=== PATIENT | male | born 1970 | race Caucasian/White ===

== ENCOUNTER 2020-12-26 17:11 | Outpatient (REF) | payer OTHER, SELFPAY ==
--- NOTE | 2020-12-26 17:17 | XR_ITS ---
EXAMINATION: XR CERVICAL SPINE XR LUMBAR SPINE CLINICAL INFORMATION: Cervicalgia. Low back pain. COMPARISON: None TECHNIQUE: AP, lateral, open-mouth, and swimmer's views of the cervical spine. AP, lateral, and coned-down views of the lumbar spine. FINDINGS: Cervical Spine: Straightening of the normal cervical lordosis, which may be positional or related to muscular spasm. No acute fracture or subluxation. No loss of vertebral body height. Multilevel loss of intervertebral disc height with anterior endplate osteophytes, most prominent at C5-C6 and C6-C7. Normal atlantoaxial alignment. Unremarkable prevertebral soft tissues. Lumbar Spine: The lumbar lordosis is maintained. Minimal grade 1 retrolisthesis of L3 on L4. No acute fracture. No loss of vertebral body height. Mild multilevel loss of intervertebral disc height with anterior endplate osteophytes. Severe bilateral facet arthropathy at L3-S1. No lytic or blastic osseous lesion. XR/XR lumbar spine 2-3V IMPRESSION: Cervical Spine: Straightening of the normal cervical lordosis, which may be positional or related to muscular spasm. Multilevel degenerative disc disease. Prominent anterior endplate osteophytes at C5-C6 and C6-C7. Lumbar Spine: Minimal grade 1 retrolisthesis of L3 on L4. Mild multilevel degenerative disc disease. Severe bilateral facet arthropathy at L3-S1.
--- NOTE | 2020-12-26 17:17 | XR_ITS ---
EXAMINATION: XR CERVICAL SPINE XR LUMBAR SPINE CLINICAL INFORMATION: Cervicalgia. Low back pain. COMPARISON: None TECHNIQUE: AP, lateral, open-mouth, and swimmer's views of the cervical spine. AP, lateral, and coned-down views of the lumbar spine. FINDINGS: Cervical Spine: Straightening of the normal cervical lordosis, which may be positional or related to muscular spasm. No acute fracture or subluxation. No loss of vertebral body height. Multilevel loss of intervertebral disc height with anterior endplate osteophytes, most prominent at C5-C6 and C6-C7. Normal atlantoaxial alignment. Unremarkable prevertebral soft tissues. Lumbar Spine: The lumbar lordosis is maintained. Minimal grade 1 retrolisthesis of L3 on L4. No acute fracture. No loss of vertebral body height. Mild multilevel loss of intervertebral disc height with anterior endplate osteophytes. Severe bilateral facet arthropathy at L3-S1. No lytic or blastic osseous lesion. XR/XR cervical spine 2V IMPRESSION: Cervical Spine: Straightening of the normal cervical lordosis, which may be positional or related to muscular spasm. Multilevel degenerative disc disease. Prominent anterior endplate osteophytes at C5-C6 and C6-C7. Lumbar Spine: Minimal grade 1 retrolisthesis of L3 on L4. Mild multilevel degenerative disc disease. Severe bilateral facet arthropathy at L3-S1.
== END 2020-12-26 17:12 | disposition home or self-care (01) ==
LOC: HO.XRAY 17:11
PROVIDERS: PCP Internal Medicine; Visit Provider Internal Medicine
DX: M54.5 Low back pain (principal); M54.2 Cervicalgia
CPT/HCPCS: 72040; 72100

== ENCOUNTER 2021-05-29 20:19 | Inpatient (IN) | payer OTHER, SELFPAY ==
--- NOTE | ~2021-05-29 | MR_ITS ---
EXAMINATION: MR FOOT RIGHT, WITHOUT/WITH CONTRAST CLINICAL INFORMATION: Evaluate for osteomyelitis. Foot pain, infection. COMPARISON: Radiographs of the foot from 05/29/2021 TECHNIQUE: MR imaging of the right foot was performed using standard sequences on a high-field 1.5 Jackelyn magnet without and with intravenous administration of 10 mL Gadavist. FINDINGS: There appears to be superficial soft tissue ulcer in the region of the first web space and plantar aspect of the great toe. Multiple small foci of signal void are present within soft tissues of the first web space and dorsal forefoot, corresponding to the soft tissue gas observed on radiographs from 05/29/2021. There is edema of subcutaneous tissues, most pronounced in the dorsal forefoot, without focal organized collection. No evidence of a rim-enhancing fluid collection or soft tissue mass. There is diffuse edema-like signal intensity of muscles of the foot. The muscles are atrophied and exhibit partial fatty replacement. These findings are likely sequela of chronic diabetic associated neuropathy. The flexor and extensor tendons are intact. No evidence of tendon tear or tenosynovitis. There are osteophytes of the mildly degenerated great toe metatarsophalangeal joint. No erosions or periostitis. The fatty marrow signal intensity is well-preserved with within bones of the forefoot. No pathologic bone marrow enhancement. No evidence of osteomyelitis. There are marginal osteophytes at degenerated 2nd - 4th tarsometatarsal joints. Bones have normal alignment along Lisfranc joint, and the Lisfranc ligament complex is intact. MR/MR foot RT wo/w con IMPRESSION: * Soft tissue ulcer in the forefoot and soft tissue gas could represent gas gangrene. No soft tissue abscess. * No evidence of osteomyelitis. 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 * Diffuse edema-like signal intensity of muscles of the foot along with atrophy and partial fatty replacement of muscles could be the sequela of chronic diabetic associated denervation.
--- NOTE | ~2021-05-29 | XR_ITS ---
EXAMINATION: XR CHEST CLINICAL INFORMATION: Infection COMPARISON: Chest x-ray October 26, 2016 TECHNIQUE: Frontal view of the chest was obtained. 9:49 PM FINDINGS: No significant abnormality is noted involving the heart, lungs, mediastinum, bony thorax or soft tissues. XR/XR chest 1V IMPRESSION: Unremarkable examination.
--- NOTE | ~2021-05-29 | XR_ITS ---
EXAMINATION: XR FOOT, RIGHT CLINICAL INFORMATION: Pain and redness and ulcer. Evaluate for osteomyelitis COMPARISON: None TECHNIQUE: AP, lateral, and oblique views of the right foot. FINDINGS: Bone alignment is normal. No fracture or dislocation is seen. There is mild arthritis at the first MTP joint with small osteophytes. Joint spaces are otherwise normal. There is air in the soft tissues over the MTP joints and soft tissue swelling. No x-ray evidence of osteomyelitis is seen. There are large calcaneal spurs. XR/XR foot RT min 3V IMPRESSION: Air in the soft tissues and soft tissue swelling over the MTP joints. No fracture, soft tissue foreign body or x-ray evidence of osteomyelitis seen.
[2021-05-29 21:18] VITALS: BP 144/63; PULSE 118; RESP 18; TEMP 37.7; O2SAT 93; BMI 37.5
--- NOTE | 2021-05-29 22:13 | ED_ITS ---
HPI - Wound/Laceration General Chief Complaint: Wound/Laceration Stated Complaint: ?Foot infection Time Seen by Provider: 05/29/21 22:13 Source: patient Mode of arrival: ambulatory History of Present Illness HPI narrative: 50-year-old male with history of diabetes and hypertension presents with fever and chills for 4-5 days and noticing a wound to the right foot the patient states worsened overnight and involves the right MTP with blis tering, foot erythema, as well as discomfort on ambulation. Otherwise, he denies any shortness of breath, chest pain / palpitations, GI or symptoms. Related Data Home Medications Medication Instructions Recorded Confirmed amitriptyline 10 mg tablet 10 mg PO DAILY 11/26/20 02/10/21 tamsulosin 0.4 mg capsule 0.4 mg PO DAILY 11/26/20 02/10/21 Previous Rx's Medication Instructions Recorded dulaglutide 1.5 mg/0.5 mL 1.5 mg SUBCUT QWEEK #4 ml 09/10/20 subcutaneous pen injector pen needle, diabetic 31 gauge x 1 ea SUBCUT DAILY 30 Days #30 ea 09/17/20 5/ pioglitazone 45 mg tablet 45 mg PO DAILY 90 Days #90 tab 09/29/20 simvastatin 20 mg tablet 20 mg PO BEDTIME 90 Days #90 tab 10/01/20 sildenafil 100 mg tablet 100 mg PO DAILY PRN #20 cap 10/08/20 levothyroxine 150 mcg tablet 150 mcg PO DAILY #90 tab 10/15/20 diabetic shoes with inserts #1 ea 11/12/20 cyclobenzaprine 10 mg tablet 10 mg PO TID PRN 14 Days #42 tab 11/26/20 omeprazole 20 mg capsule,delayed 20 mg PO DAILY 90 Days #90 cap 12/10/20 release lisinopril 2.5 mg tablet 2.5 mg PO DAILY #30 tab 12/18/20 imipramine HCl 10 mg tablet 10 mg PO BEDTIME 90 Days #90 tab 01/14/21 testosterone 20.25 mg/1.25 gram 4 pump TOPICAL DAILY 30 Days #150 g 02/05/21 (1.62 %) transdermal gel pump insulin glargine 100 unit/mL (3 60 unit SUBCUT DAILY #18 syringe 03/27/21 mL) subcutaneous pen Allergies Allergy/AdvReac Type Severity Reaction Status Date / Time dog dander Allergy Unknown Ithcy Verified 02/10/21 13:01 metformin [METFORMIN] Allergy Unknown LACTIC Verified 02/10/21 13:01 ACIDOSIS nut - unspecified Allergy Unknown hives/throat Verified 02/10/21 13:01 constriction sunflower seeds Allergy Unknown throat Uncoded 12/31/20 17:23 itchiness Review of Systems Review of Systems: Pertinent positives and negatives as stated in HPI 10 point review of systems is otherwise negative. PMFSH Past Medical History Source: nursing notes reviewed Medical History Asthma Autoimmune thyroiditis BPH (benign prostatic hyperplasia) Erectile dysfunction GERD (gastroesophageal reflux disease) Hypercholesterolemia Hypertension Legally blind in left eye, as defined in [place] Neuropathy Obesity (BMI 30-39.9) Type 2 diabetes mellitus with hyperglycemia Surgical History Strabismus Family History Family History Father No problems noted. Mother Skin cancer Hypertension Diabetes Maternal Grandmother Diabetes Hypertension Maternal Grandfather Stroke Diabetes Hypertension Maternal Aunt Cancer Sister No problems noted. Brother No problems noted. Social History Social History Alcohol intake: never Advance Directives: No Advance Directives Information Provided: Yes Physical Exam Vital Signs: Vital Signs: Last Vital Signs Temp 99.9 F 05/29/21 21:18 Pulse 118 H 05/29/21 21:18 Resp 18 05/29/21 21:18 BP 144/63 H 05/29/21 21:18 Pulse Ox 93 05/29/21 21:18 Body Mass Index 37.5 VITAL SIGNS: Reviewed. GENERAL: Well developed, well nourished, in no acute distress. HEAD: Normocephalic/atraumatic, EYES: PERRLA, EOMI intact without pain, no nystagmus EARS: Ext canals without abnormality, TMs non-bulging and non-erythematous NOSE: Nares patent bilateral OROPHARYNX: no oral lesions noted, posterior pharynx clear NECK: Supple, no adenopathy LUNGS: Normal breath sounds. No adventitious sounds or accessory muscle use. SpO2<93> CARDIOVASCULAR: Regular rate and rhythm without noted murmurs, no JVD or lower extremity edema. ABDOMEN: obese,Soft, non-tender, non-distended with bowel sounds. RIGHT FOOT:Erythema, swelling over foot dorsum with ulceration and blistering noted along plantar MTP and extending between the great toe and 2nd toe, palpable DP/PT, capillary refill less than 3 seconds SKIN: Inspection of the skin reveals no rashes NEUROLOGIC: Alert and oriented x 4. Strength and sensation to light touch were grossly intact x 4. Course Course Course Narrative: 50-year-old male with history and clinical presentation most consistent with right foot cellulitis and likely underlying osteomyelitis, patient will be provided with antibiotics, combination analgesics and admitted. On review of all investigations findings are consistent with significant right foot cellulitis without direct imaging evidence of OM, patient is hyperglycemic and will be treated with 2 L of IV fluid resuscitation however there is no evidence of DKA/ HHS. This case was discussed with the inpatient hospitalist who is agreeable for admission. MDM - Wound/Laceration Lab Data Result diagrams: 05/29/21 22:14 05/29/21 22:14 Labs: Lab Results 05/29/21 05/29/21 05/29/21 Range/Units 22:14 22:14 22:14 WBC 14.8 H (4.8-10.8) X10*3/uL RBC 4.06 L (4.60-5.80) X10*6/uL Hgb 11.3 L (14.0-18.0) g/dl Hct 33.6 L (42-52) % MCV 82.8 (80-98) fL MCH 27.8 (27.0-33.0) pg MCHC 33.6 (31.0-36.0) g/dl RDW 13.3 (11.0-16.0) % Plt Count 217 (160-400) X10*3/uL MPV 10.6 (9.4-12.4) fL Immature Gran % (Auto) 1.2 H (0.0-0.4) % Neut % (Auto) 82.4 H (45-73) % Lymph % (Auto) 7.9 L (20-40) % [place] % (Auto) 8.1 (2-11) % Eos % (Auto) 0.3 (0-4) % Baso % (Auto) 0.1 (0-2) % Lymph # (Auto) 1.2 (1.2-4.9) X10*3/uL [place] # (Auto) 1.2 (0.1-1.2) X10*3/uL Eos # (Auto) 0.0 (0.0-0.4) X10*3/uL Baso # (Auto) 0.0 (0.0-0.2) X10*3/uL Abs Immat Gran (auto) 0.17 H (0.00-0.03) X10*3/uL Absolute Neuts (auto) 12.2 H (2.0-8.3) X10*3/uL Absolute Nucleated RBC 0.000 (0.0-0.012) X10*3/uL Nucleated RBC % (auto) 0.0 (0.0-0.2) /100WBC ESR (0-15) MM/HR PT 14.3 H (10.8-13.0) SEC INR 1.2 H (0.9-1.1) Sodium 134 L (135-145) mmol/L Potassium 4.2 (3.3-5.1) mmol/L Chloride 98 (96-108) mmol/L Carbon Dioxide 23 (22-29) mmol/L Anion Gap 17 (12-20) BUN 21 H (9-16) mg/dL Creatinine 1.71 H (0.5-1.4) mg/dL Estim Creat Clear Calc 60.8 Estimated GFR 43 POC Glucose (60-115) mg/dL Random Glucose 609 H* (60-115) mg/dL Lactic Acid (0.5-2.0) mmol/L Calcium 9.1 (8.4-10.2) mg/dL Total Bilirubin 1.1 H (0.0-1.0) mg/dL C-Reactive Protein 39.88 H (< or = 0.50) mg/dL 05/29/21 05/29/21 05/29/21 Range/Units 22:14 22:14 22:44 WBC (4.8-10.8) X10*3/uL RBC (4.60-5.80) X10*6/uL Hgb (14.0-18.0) g/dl Hct (42-52) % MCV (80-98) fL MCH (27.0-33.0) pg MCHC (31.0-36.0) g/dl RDW (11.0-16.0) % Plt Count (160-400) X10*3/uL MPV (9.4-12.4) fL Immature Gran % (Auto) (0.0-0.4) % Neut % (Auto) (45-73) % Lymph % (Auto) (20-40) % [place] % (Auto) (2-11) % Eos % (Auto) (0-4) % Baso % (Auto) (0-2) % Lymph # (Auto) (1.2-4.9) X10*3/uL [place] # (Auto) (0.1-1.2) X10*3/uL Eos # (Auto) (0.0-0.4) X10*3/uL Baso # (Auto) (0.0-0.2) X10*3/uL Abs Immat Gran (auto) (0.00-0.03) X10*3/uL Absolute Neuts (auto) (2.0-8.3) X10*3/uL Absolute Nucleated RBC (0.0-0.012) X10*3/uL Nucleated RBC % (auto) (0.0-0.2) /100WBC ESR 96 H (0-15) MM/HR PT (10.8-13.0) SEC INR (0.9-1.1) Sodium (135-145) mmol/L Potassium (3.3-5.1) mmol/L Chloride (96-108) mmol/L Carbon Dioxide (22-29) mmol/L Anion Gap (12-20) BUN (9-16) mg/dL Creatinine (0.5-1.4) mg/dL Estim Creat Clear Calc Estimated GFR POC Glucose 507 H* (60-115) mg/dL Random Glucose (60-115) mg/dL Lactic Acid 1.6 (0.5-2.0) mmol/L Calcium (8.4-10.2) mg/dL Total Bilirubin (0.0-1.0) mg/dL C-Reactive Protein (< or = 0.50) mg/dL Discharge Plan Discharge Clinical Impression: Cellulitis and abscess of toe of right foot, Cellulitis of foot, right, ARSH (acute kidney injury), Sepsis, Hyperglycemia Patient Disposition: Admitted As Inpatient Prescriptions: No Action dulaglutide [Trulicity] 1.5 mg/0.5 mL pen injector 1.5 mg subcut QWEEK Qty: 4 RF: 6 pen needle, diabetic [BD Ultra-Fine Short Pen Needle] 31 gauge x 5/16 needle 1 ea subcut DAILY 30 Days Qty: 30 RF: 11 pioglitazone 45 mg tablet 45 mg PO DAILY 90 Days Qty: 90 RF: 3 simvastatin 20 mg tablet 20 mg PO BEDTIME 90 Days Qty: 90 RF: 3 sildenafil 100 mg tablet 100 mg PO DAILY PRN (Reason: sexual activity) Qty: 20 RF: 11 levothyroxine [Euthyrox] 150 mcg tablet 150 mcg PO DAILY Qty: 90 RF: 2 (DME) diabetic shoes with inserts 9.5 See Rx Instructions .Route .MEDSUPPLY Qty: 1 RF: 3 omeprazole 20 mg capsule,delayed release(DR/EC) 20 mg PO DAILY 90 Days Qty: 90 RF: 3 lisinopril 2.5 mg tablet 2.5 mg PO DAILY Qty: 30 RF: 11 imipramine HCl 10 mg tablet 10 mg PO BEDTIME 90 Days Qty: 90 RF: 2 testosterone 20.25 mg/1.25 gram (1.62 %) gel in metered-dose pump 4 pump topical DAILY 30 Days Qty: 150 RF: 5 Lantus Solostar U-100 Insulin 100 unit/mL (3 mL) insulin pen 60 unit subcut DAILY Qty: 18 RF: 3 amitriptyline 10 mg tablet 10 mg PO DAILY RF: 0 tamsulosin 0.4 mg capsule 0.4 mg PO DAILY RF: 0 cyclobenzaprine 10 mg tablet 10 mg PO TID PRN (Reason: muscle spasm) 14 Days Qty: 42 RF: 0
[2021-05-29 22:20] LABS: MANUAL DIFF FLAG NO
[2021-05-29 22:22] LABS: Basophils Percent Auto 0.1 % (0-2); Eosinophils Percent Auto 0.3 % (0-4); Hematocrit 33.6 % (42-52); Hemoglobin 11.3 g/dl (14.0-18.0); Imm Gran Abs Auto 0.17 X10*3/uL (0.00-0.03); Imm Gran Pct Auto 1.2 % (0.0-0.4); Lymphocytes Absolute Auto 1.2 X10*3/uL (1.2-4.9); Lymphocytes Percent Auto 7.9 % (20-40); Mean Corpuscular HGB Conc 33.6 g/dl (31.0-36.0); Mean Corpuscular Hemoglobin 27.8 pg (27.0-33.0); Mean Corpuscular Volume 82.8 fL (80-98); Mean Platelet Volume 10.6 fL (9.4-12.4); Monocytes Absolute Auto 1.2 X10*3/uL (0.1-1.2); Monocytes Percent Auto 8.1 % (2-11); Neutrophils Absolute Auto 12.2 X10*3/uL (2.0-8.3); Neutrophils Percent Auto 82.4 % (45-73); Platelet Count 217 X10*3/uL (160-400); Red Blood Count 4.06 X10*6/uL (4.60-5.80); Red Cell Distribution Width 13.3 % (11.0-16.0); White Blood Count 14.8 X10*3/uL (4.8-10.8)
[2021-05-29] MEDS: Acetaminophen 325 MG TABLET 975 MG PO (22:30)
[2021-05-29] MEDS: Piperacillin Sodium/Tazobactam 3.375 GM in 0.9 % Sodium Chloride 50 ML IV (22:30)
[2021-05-29 22:37] LABS: INTERNATIONAL NORM RATIO 1.2 (0.9-1.1); Prothrombin Time 14.3 SEC (10.8-13.0)
[2021-05-29 22:43] LABS: Lactic Acid 1.6 mmol/L (0.5-2.0)
[2021-05-29 22:52] LABS: Anion Gap 17 (12-20); Bilirubin Total 1.1 mg/dL (0.0-1.0); Blood Urea Nitrogen 21 mg/dL (9-16); Calcium 9.1 mg/dL (8.4-10.2); Carbon Dioxide 23 mmol/L (22-29); Chloride 98 mmol/L (96-108); Creatinine Clr Calc Pharmacy 60.8; Estimated Glomerular Filt Rate 43; Potassium 4.2 mmol/L (3.3-5.1); Sodium 134 mmol/L (135-145)
[2021-05-29 22:55] LABS: Glucose, Whole Blood 507 mg/dL (60-115)
[2021-05-29] MEDS: 0.9 % Sodium Chloride 2,000 ML 999 ML IV (23:00)
[2021-05-29] MEDS: vancomycin HCL 1,000 MG in 0.9 % Sodium Chloride 250 ML 270 MG IV (23:00)
[2021-05-29 23:02] LABS: C Reactive Protein 39.88 mg/dL (< or = 0.50)
[2021-05-29 23:03] LABS: Erythrocyte Sedimentation Rate 96 MM/HR (0-15); Glucose Random 609 mg/dL (60-115)
[2021-05-29 23:08] LABS: COVID-19 Test Negative (Negative)
[2021-05-29 23:35] VITALS: BP 132/63; PULSE 108; RESP 22; TEMP 37.2; O2SAT 108
[2021-05-30] VITALS (10 sets, daily range): BP systolic 105–138; BP diastolic 50–78; PULSE 75–126; RESP 16–22; TEMP 36.4–38.1; O2SAT 92–98
[2021-05-30] MEDS: Insulin Lispro 100 UNIT/ML 3 ML VIAL 8 UNIT SUBCUT (00:12)
[2021-05-30] MEDS: Enoxaparin Sodium 40 MG/0.4 ML SYRINGE SUBCUT (01:52)
[2021-05-30] MEDS: 0.9 % Sodium Chloride Flush 3 ML SYRINGE IVFLUSH (01:53)
--- NOTE | 2021-05-30 05:40 | PM.IMHP ---
History of Present Illness Date of Service: 05/29/21 Chief Complaint: foot infection this is a 50-year-old male with past medical history of asthma, autoimmune thyroiditis, BPH, GERD, HLD, HTN, diabetes, neuropathy, obesity who presents to the hospital with complaints of left foot swelling, and blister as well as infection. Patient reports that he has always had a small what appear to be a skin infection at the base of his right foot, that he was taking care of, but today he developed blistering around his large toe and redness and swelling of his right foot. Patient reports that he has been having fever and chills for the past for 5 days. The fever is subjective. He denies having any headache, change in vision, no chest pain, no shortness of breath, no abdominal pain nausea or vomiting no diarrhea constipation. No urinary symptoms. patient reports that he does not feel pain in his feet and therefore his never had any pain with his right foot On arrival to the ED patient's vital significant for temp of 99.0, heart rate of 108, respiratory rate of 20, blood pressure of 132/63, satting 98 on room air Labs are significant for WBC count of 14.8, hemoglobin of 11.3, ESR of 96, INR of 1.2, sodium of 134, BUN of 21, creatinine of 1.71 with a baseline around 0.9, hemoglobin of 500, total bili of 101, CRP of 39.88. Right foot x-ray shows air in the soft tissues in soft tissue swelling over the MTP joints, no fracture soft tissue foreign body or x-ray evidence of osteomyelitis past medical history as below long confirm with patient Review of Systems Review of Systems: Yes all other systems are reviewed and are negative [facility] Medical History Asthma Autoimmune thyroiditis BPH (benign prostatic hyperplasia) Erectile dysfunction GERD (gastroesophageal reflux disease) Hypercholesterolemia Hypertension Legally blind in left eye, as defined in [place] Neuropathy Obesity (BMI 30-39.9) Type 2 diabetes mellitus with hyperglycemia Family History Father No problems noted. Mother Skin cancer Hypertension Diabetes Maternal Grandmother Diabetes Hypertension Maternal Grandfather Stroke Diabetes Hypertension Maternal Aunt Cancer Sister No problems noted. Brother No problems noted. Surgical History Strabismus Social History Household Members: Family Housing: House Do you presently have visiting nurse or other home services: No Alcohol intake: unknown Patient Tobacco Use Status: Never used Tobacco Use of substances other than those prescribed or required for medical reasons: No Have you been hit, kicked, punched, or otherwise hurt by someone within the past year? If so, by whom?: No Do you feel safe in your current relationship?: Yes Is there a partner from a previous relationship who is making you feel unsafe now?: No Are you made to feel afraid or neglected: No Advance Directives: No Advance Directives Information Provided: Yes Do you have thoughts of harming others: None Do you have a plan to hurt others: No Plan Recently lost weight without trying: No Nutrition Risks: No Nutritional Risk Poor oral hygiene: No Meds Allergies Allergy/AdvReac Type Severity Reaction Status Date / Time dog dander Allergy Unknown Ithcy Verified 02/10/21 13:01 metformin [METFORMIN] Allergy Unknown LACTIC Verified 02/10/21 13:01 ACIDOSIS nut - unspecified Allergy Unknown hives/throat Verified 02/10/21 13:01 constriction sunflower seeds Allergy Unknown throat Uncoded 12/31/20 17:23 itchiness Active Medications: Current Medications Generic Name Dose Route Start Last Admin Trade Name Freq PRN Reason Stop Dose Admin Acetaminophen 650 mg 05/30/21 00:51 Acetaminophen Supp 650 Mg Supp.Rect CA Q6H PRN Pain, Mild (Pain Scale 1-3) Atorvastatin Calcium 10 mg 05/30/21 21:00 Atorvastatin Calcium 10 Mg Tablet PO BEDTIME [facility] Docusate Sodium 100 mg 05/30/21 00:51 Docusate Sodium 100 Mg Capsule PO DAILY PRN Constipation Enoxaparin Sodium 40 mg 05/30/21 02:00 05/30/21 01:52 Enoxaparin Sodium 40 Mg/0.4 Ml Syringe SUBCUT 40 mg Q24H [facility] Administration Vancomycin HCl 2,000 mg/ 540 mls @ 270 mls/hr 05/30/21 00:51 Sodium Chloride IV Q24H [facility] Piperacillin Sod/Tazobactam 50 mls @ 100 mls/hr 05/30/21 06:00 Sod 3.375 gm/ Sodium Chloride IV Q8H [facility] Imipramine HCl 10 mg 05/30/21 00:51 05/30/21 01:53 Imipramine Hcl 10 Mg Tablet PO Not Given BEDTIME [facility] Insulin Glargine 60 unit 05/30/21 09:00 Insulin Glargine,Hum.Rec.Anlog 100 Unit/Ml 10 Ml Vial SUBCUT DAILY [facility] Levothyroxine Sodium 150 mcg 05/30/21 06:30 Levothyroxine Sodium 150 Mcg Tablet PO DAILY@0630 [facility] Lisinopril 2.5 mg 05/30/21 09:00 Lisinopril 2.5 Mg Tablet PO DAILY [facility] Protocol Non-Formulary Medication 4 pump 05/30/21 09:00 Testosterone TOPICAL DAILY [facility] Omeprazole 20 mg 05/30/21 06:30 Omeprazole 20 Mg Capsule.Dr PO DAILY@0630 [facility] Ondansetron HCl 4 mg 05/30/21 00:51 Ondansetron Hcl 4 Mg/2 Ml Vial IVPUSH Q8H PRN Nausea and Vomiting Pharmacy Consult 1 each 05/30/21 00:51 Consult Rx Vancomycin Dosing MISCELLANE DAILY PRN Consult order Sodium Chloride 3 ml 05/30/21 00:51 05/30/21 01:53 0.9 % Sodium Chloride Flush 3 Ml Syringe IVFLUSH 3 ml QSHIFT [facility] Administration Home Medications Medication Instructions Recorded Confirmed Last Taken Type imipramine HCl 1 tab PO BEDTIME 05/29/21 05/29/21 Unknown History insulin glargine [Lantus Solostar 60 unit SUBCUT DAILY 05/29/21 05/29/21 Unknown History U-100 Insulin] levothyroxine 1 tab PO DAILY 05/29/21 05/29/21 Unknown History lisinopril 1 tab PO DAILY 05/29/21 05/29/21 Unknown History omeprazole 1 cap PO DAILY 05/29/21 05/29/21 Unknown History pen needle, diabetic [BD 05/29/21 05/29/21 Unknown History Ultra-Fine Short Pen Needle] pioglitazone 1 tab PO DAILY 05/29/21 05/29/21 Unknown History sildenafil 1 tab PO DAILY PRN 05/29/21 05/29/21 Unknown History simvastatin 1 tab PO BEDTIME 05/29/21 05/29/21 Unknown History testosterone 4 pump TOPICAL DAILY 05/29/21 05/29/21 Unknown History Physical Exam Vital Signs and Narrative: Vital Signs: Last Vital Signs Temp 97.5 F 05/30/21 03:48 Pulse 101 H 05/30/21 03:48 Resp 16 05/30/21 03:48 BP 119/67 05/30/21 03:48 Pulse Ox 96 05/30/21 03:48 Body Mass Index 37.5 Const: General: cooperative and no acute distress Orientation/consciousness: patient oriented x3 Eyes: General: appearance normal, both eyes and all related structures Resp: Effort & Inspection: normal respiratory effort and able to speak in complete sentences Cardio: Rate: regular rate Rhythm: regular rhythm GI: Palpation (GI): Soft to palpation Auscultation: normal bowel sounds Skin: Other: erythema, warmth of the right foot Neuro: General: patient oriented x3 Cognition (Neuro): normal cognition Extrem: Other: erythema, warmth, edema, right foot, there is also a blister and drainage located between the 1st and 2nd phalanges of the right foot. There was clear fluid drainage. There is a callus at the base of the 1st toe of his right foot. General: Yes normal to inspection Results Labs CBC and Chem 7: 05/29/21 22:14 05/29/21 22:14 Labs: Laboratory Results - last 24 hr 05/29/21 05/29/21 05/29/21 22:14 22:14 22:14 MCV 82.8 MCH 27.8 MCHC 33.6 RDW 13.3 Plt Count 217 MPV 10.6 Immature Gran % (Auto) 1.2 H Neut % (Auto) 82.4 H Lymph % (Auto) 7.9 L Frontier % (Auto) 8.1 Eos % (Auto) 0.3 Baso % (Auto) 0.1 Lymph # (Auto) 1.2 Frontier # (Auto) 1.2 Eos # (Auto) 0.0 Baso # (Auto) 0.0 Abs Immat Gran (auto) 0.17 H Absolute Neuts (auto) 12.2 H Absolute Nucleated RBC 0.000 Nucleated RBC % (auto) 0.0 ESR PT 14.3 H INR 1.2 H Anion Gap 17 Estim Creat Clear Calc 60.8 Estimated GFR 43 POC Glucose Random Glucose 609 H* Lactic Acid Calcium 9.1 Total Bilirubin 1.1 H C-Reactive Protein 39.88 H COVID-19 ([facility]) COVID-19 Clin Com 05/29/21 05/29/21 05/29/21 22:14 22:14 22:44 MCV MCH MCHC RDW Plt Count MPV Immature Gran % (Auto) Neut % (Auto) Lymph % (Auto) Frontier % (Auto) Eos % (Auto) Baso % (Auto) Lymph # (Auto) Frontier # (Auto) Eos # (Auto) Baso # (Auto) Abs Immat Gran (auto) Absolute Neuts (auto) Absolute Nucleated RBC Nucleated RBC % (auto) ESR 96 H PT INR Anion Gap Estim Creat Clear Calc Estimated GFR POC Glucose 507 H* Random Glucose Lactic Acid 1.6 Calcium Total Bilirubin C-Reactive Protein COVID-19 ([facility]) COVID-19 Clin Com 05/29/21 22:45 MCV MCH MCHC RDW Plt Count MPV Immature Gran % (Auto) Neut % (Auto) Lymph % (Auto) Frontier % (Auto) Eos % (Auto) Baso % (Auto) Lymph # (Auto) Frontier # (Auto) Eos # (Auto) Baso # (Auto) Abs Immat Gran (auto) Absolute Neuts (auto) Absolute Nucleated RBC Nucleated RBC % (auto) ESR PT INR Anion Gap Estim Creat Clear Calc Estimated GFR POC Glucose Random Glucose Lactic Acid Calcium Total Bilirubin C-Reactive Protein COVID-19 ([facility]) Negative COVID-19 Clin Com See Note Imaging Radiologist's Impressions: Impressions Chest X-Ray 05/29/21 21:55 IMPRESSION: Unremarkable examination. Foot X-Ray 05/29/21 22:15 IMPRESSION: Air in the soft tissues and soft tissue swelling over the MTP joints. No fracture, soft tissue foreign body or x-ray evidence of osteomyelitis seen. Assessment and Plan (1) Diabetic foot ulcer: Status: Acute (2) Cellulitis and abscess of toe of right foot: Status: Acute (3) Sepsis: Status: Acute (4) ARSH (acute kidney injury): Status: Acute (5) Hyperglycemia: Status: Acute this is a 50-year-old male with past medical history of diabetes and diabetic neuropathy who presents the hospital with blister of his right foot # sepsis - most likely secondary to foot infection osteomyelitis likely - patient tachycardic, leukocytosis, tachypneic - normal lactic acid - will start him on vanc and Zosyn - IV fluids - follow cultures # diabetic for ulcers/ cellulitis and abscess of right foot - most likely osteomyelitis - has elevated ESR as well as CRP - will start him on broad-spectrum antibiotics - MRI of foot - consult infectious disease - consult general surgery # ARSH - possibly secondary to acute infection - will start him on IV fluid - follow BMP # hyperglycemia - patient has diabetes - continue home insulin - received 8 units of insulin in the ED - patient received low-dose sliding scale insulin - diabetic diet # hypothyroidism - continue levothyroxine # HLD - continue statin # hypertension - stable - continue lisinopril DVT prophylaxis: SCDs in anticipation of surgical intervention Quality Stroke Does the patient have a stroke diagnosis?: No VTE Prior VTE?: No VTE Risk Level:: Medical - moderate - high VTE Device Contraindication: Treatment Not Indicated VTE Drug Contraindication: N/A - Med Ordered
[2021-05-30] MEDS: Piperacillin Sodium/Tazobactam 3.375 GM in 0.9 % Sodium Chloride 50 ML IV ×3 (05:42→21:50)
[2021-05-30] MEDS: Omeprazole 20 MG CAPSULE.DR PO (05:43)
[2021-05-30] MEDS: Levothyroxine Sodium 150 MCG TABLET PO (05:43)
[2021-05-30 05:59] LABS: MANUAL DIFF FLAG NO
[2021-05-30 06:00] LABS: Glucose, Whole Blood 289 mg/dL (60-115)
[2021-05-30 06:08] LABS: Basophils Percent Auto 0.2 % (0-2); Eosinophils Absolute Auto 0.1 X10*3/uL (0.0-0.4); Eosinophils Percent Auto 0.7 % (0-4); Hematocrit 32.5 % (42-52); Hemoglobin 10.7 g/dl (14.0-18.0); Imm Gran Abs Auto 0.28 X10*3/uL (0.00-0.03); Lymphocytes Absolute Auto 1.4 X10*3/uL (1.2-4.9); Lymphocytes Percent Auto 10.1 % (20-40); Mean Corpuscular HGB Conc 32.9 g/dl (31.0-36.0); Mean Corpuscular Hemoglobin 27.6 pg (27.0-33.0); Mean Corpuscular Volume 83.8 fL (80-98); Mean Platelet Volume 10.9 fL (9.4-12.4); Monocytes Percent Auto 7.4 % (2-11); Neutrophils Absolute Auto 10.9 X10*3/uL (2.0-8.3); Neutrophils Percent Auto 79.6 % (45-73); Platelet Count 209 X10*3/uL (160-400); Red Blood Count 3.88 X10*6/uL (4.60-5.80); Red Cell Distribution Width 13.5 % (11.0-16.0); White Blood Count 13.7 X10*3/uL (4.8-10.8)
[2021-05-30] MEDS: Insulin Lispro 100 UNIT/ML 3 ML VIAL SUBCUT ×4 (06:30→21:51)
[2021-05-30] MEDS: Lactated Ringers 1,000 ML 125 ML IVCONT ×2 (06:37→21:51)
[2021-05-30 06:42] LABS: Anion Gap 17 (12-20); Blood Urea Nitrogen 18 mg/dL (9-16); Calcium 8.2 mg/dL (8.4-10.2); Carbon Dioxide 20 mmol/L (22-29); Chloride 105 mmol/L (96-108); Creatinine Clr Calc Pharmacy 74.8; Estimated Glomerular Filt Rate 54; Glucose Random 320 mg/dL (60-115); Potassium 3.9 mmol/L (3.3-5.1); Sodium 138 mmol/L (135-145)
[2021-05-30 07:36] LABS: Glucose, Whole Blood 272 mg/dL (60-115)
[2021-05-30] MEDS: Insulin Glargine,Hum.rec.anlog 100 UNIT/ML 10 ML VIAL 60 UNIT SUBCUT (09:07)
[2021-05-30] MEDS: lisinopriL 2.5 MG TABLET PO (09:07)
--- NOTE | 2021-05-30 09:36 | MHC.CLN ---
NUTRITION/DIET PATIENT IS CURRENTLY NPO. HAS DX DM AND WHEN DIET ADVANCED RECOMMEND THERAPEUTIC DIABETIC DIET 2200 KCAL. ESTIMATED CALORIC [id number] KCAL (28 KCAL/KG CALCULATED METABOLIC WEIGHT. UNABLE TO ASSESS DIET CONSISTENCY.
--- NOTE | 2021-05-30 09:53 | PM.CNGS ---
History of Present Illness Consult details Consult date: 05/30/21 Requesting physician: Jim Griffin Narrative: 50-year-old male patient with history of diabetes mellitus presenting with a right foot ulcer. This began while fishing wearing beach shoes walking on rocks. He apparently developed a laceration to the plantar surface of the foot over the distal metatarsal of the great toe. The patient clean the site with hydrogen peroxide but over the next several days he developed increased redness extending up between the webspace of the great toe and the 2nd toe and onto the Ventral surface. He now presents to the emergency department with redness pain and swelling. He is admitted to the hospitalist service for further management of this diabetic foot ulcer. Review of Systems Review of Systems: Yes all other systems are reviewed and are negative Constitutional: Constitutional: Denies chills, Denies fatigue and Denies fever(s) Cardiovascular: Cardiovascular: Denies chest pain, Reports pedal edema, Denies irregular heart rhythm and Denies orthopnea Respiratory: Respiratory: Denies chest congestion, Denies cough and Denies hemoptysis Gastrointestinal: Gastrointestinal: Reports no additional gastrointestinal complaints Musculoskeletal: Musculoskeletal: Reports as per HPI Endocrine: Endocrine: Denies fatigue Hematologic/Lymphatic: Hematologic/Lymphatic: Denies lymphadenopathy [facility] Past Medical History Medical History Asthma Autoimmune thyroiditis BPH (benign prostatic hyperplasia) Erectile dysfunction GERD (gastroesophageal reflux disease) Hypercholesterolemia Hypertension Legally blind in left eye, as defined in [place] Neuropathy Obesity (BMI 30-39.9) Type 2 diabetes mellitus with hyperglycemia Family History Family History Father No problems noted. Mother Skin cancer Hypertension Diabetes Maternal Grandmother Diabetes Hypertension Maternal Grandfather Stroke Diabetes Hypertension Maternal Aunt Cancer Sister No problems noted. Brother No problems noted. Surgical History Surgical History Strabismus Social History Social History Household Members: Family Housing: House Do you presently have visiting nurse or other home services: No Alcohol intake: unknown Patient Tobacco Use Status: Never used Tobacco Use of substances other than those prescribed or required for medical reasons: No Currently Displaying Signs/Symptoms of Drug Intoxication Withdrawal: No Have you been hit, kicked, punched, or otherwise hurt by someone within the past year? If so, by whom?: No Do you feel safe in your current relationship?: Yes Is there a partner from a previous relationship who is making you feel unsafe now?: No Are you made to feel afraid or neglected: No Advance Directives: No Advance Directives Information Provided: Yes Do you have thoughts of harming others: None Do you have a plan to hurt others: No Plan Recently lost weight without trying: No Nutrition Risks: No Nutritional Risk Poor oral hygiene: No Meds Allergies Allergy/AdvReac Type Severity Reaction Status Date / Time dog dander Allergy Unknown Ithcy Verified 02/10/21 13:01 metformin [METFORMIN] Allergy Unknown LACTIC Verified 02/10/21 13:01 ACIDOSIS nut - unspecified Allergy Unknown hives/throat Verified 02/10/21 13:01 constriction sunflower seeds Allergy Unknown throat Uncoded 12/31/20 17:23 itchiness Active Medications: Current Medications Generic Name Dose Route Start Last Admin Trade Name Freq PRN Reason Stop Dose Admin Acetaminophen 650 mg 05/30/21 00:51 Acetaminophen Supp 650 Mg Supp.Rect NC Q6H PRN Pain, Mild (Pain Scale 1-3) Atorvastatin Calcium 10 mg 05/30/21 21:00 Atorvastatin Calcium 10 Mg Tablet PO BEDTIME [facility] Docusate Sodium 100 mg 05/30/21 00:51 Docusate Sodium 100 Mg Capsule PO DAILY PRN Constipation Enoxaparin Sodium 40 mg 05/30/21 02:00 05/30/21 01:52 Enoxaparin Sodium 40 Mg/0.4 Ml Syringe SUBCUT 40 mg Q24H [facility] Administration Piperacillin Sod/Tazobactam 50 mls @ 100 mls/hr 05/30/21 06:00 05/30/21 06:21 Sod 3.375 gm/ Sodium Chloride IV Infused Q8H [facility] Infusion Lactated Ringer's 1,000 mls @ 125 mls/hr 05/30/21 05:45 05/30/21 06:37 Lr IVCONT 125 mls/hr .Q8H [facility] Administration Vancomycin HCl 1,000 mg/ 270 mls @ 270 mls/hr 05/30/21 11:00 Sodium Chloride IV Q12H [facility] Imipramine HCl 10 mg 05/30/21 00:51 05/30/21 01:53 Imipramine Hcl 10 Mg Tablet PO Not Given BEDTIME [facility] Insulin Glargine 60 unit 05/30/21 09:00 05/30/21 09:07 Insulin Glargine,Hum.Rec.Anlog 100 Unit/Ml 10 Ml Vial SUBCUT 60 unit DAILY [facility] Administration Insulin Human Lispro 0 unit 05/30/21 07:30 05/30/21 06:30 Insulin Lispro 100 Unit/Ml 3 Ml Vial SUBCUT 6 unit QIDACHS [facility] Administration Protocol Levothyroxine Sodium 150 mcg 05/30/21 06:30 05/30/21 05:43 Levothyroxine Sodium 150 Mcg Tablet PO 150 mcg DAILY@0630 [facility] Administration Lisinopril 2.5 mg 05/30/21 09:00 05/30/21 09:07 Lisinopril 2.5 Mg Tablet PO 2.5 mg DAILY [facility] Administration Protocol Non-Formulary Medication 4 pump 05/30/21 09:00 Testosterone TOPICAL DAILY [facility] Omeprazole 20 mg 05/30/21 06:30 05/30/21 05:43 Omeprazole 20 Mg Capsule. PO 20 mg DAILY@0630 [facility] Administration Ondansetron HCl 4 mg 05/30/21 00:51 Ondansetron Hcl 4 Mg/2 Ml Vial IVPUSH Q8H PRN Nausea and Vomiting Pharmacy Consult 1 each 05/30/21 00:51 Consult Rx Vancomycin Dosing MISCELLANE DAILY PRN Consult order Sodium Chloride 3 ml 05/30/21 00:51 05/30/21 09:07 0.9 % Sodium Chloride Flush 3 Ml Syringe IVFLUSH Not Given QSHIFT [facility] Home Medications Medication Instructions Recorded Confirmed Last Taken Type imipramine HCl 1 tab PO BEDTIME 05/29/21 05/29/21 Unknown History insulin glargine [Lantus Solostar 60 unit SUBCUT DAILY 05/29/21 05/29/21 Unknown History U-100 Insulin] levothyroxine 1 tab PO DAILY 05/29/21 05/29/21 Unknown History lisinopril 1 tab PO DAILY 05/29/21 05/29/21 Unknown History omeprazole 1 cap PO DAILY 05/29/21 05/29/21 Unknown History pen needle, diabetic [BD 05/29/21 05/29/21 Unknown History Ultra-Fine Short Pen Needle] pioglitazone 1 tab PO DAILY 05/29/21 05/29/21 Unknown History sildenafil 1 tab PO DAILY PRN 05/29/21 05/29/21 Unknown History simvastatin 1 tab PO BEDTIME 05/29/21 05/29/21 Unknown History testosterone 4 pump TOPICAL DAILY 05/29/21 05/29/21 Unknown History Physical Exam Vital Signs: Vital Signs: Last Vital Signs Temp 98.6 F 05/30/21 07:43 Pulse 101 H 05/30/21 07:43 Resp 16 05/30/21 07:43 BP 122/65 05/30/21 07:43 Pulse Ox 94 05/30/21 07:43 Body Mass Index 37.5 Const: General: cooperative, comfortable, no acute distress and well developed Nutritional Appearance: well nourished Orientation/consciousness: patient oriented x3 Limitations: no limitations Eyes: Sclerae: sclerae normal EOM: EOMs intact bilaterally Resp: Effort & Inspection: normal respiratory effort Skin: Other: Warm, dry, no rash Neuro: General: patient oriented x3 Extrem: Other: area of skin necrosis between the webspace of the great toe and 2nd toe right foot. Overlying desquamated skin was excised with the scissors with an area measuring approximately 1 cm by 5 cm. no deep abscess could be identified and no underlying necrotic skin was appreciated. No pus collection was noted below the skin for culture. Wounds were dressed with iodoform gauze followed by dry sterile dressings. Ankle/foot/toe images: 1. Original ulceration 2. region of necrotic skin Results Labs Result diagrams: 05/30/21 05:40 05/30/21 05:40 Labs: Abnormal lab results 05/29/21 05/29/21 05/29/21 Range/Units 22:14 22:14 22:14 WBC 14.8 H (4.8-10.8) X10*3/uL RBC 4.06 L (4.60-5.80) X10*6/uL Hgb 11.3 L (14.0-18.0) g/dl Hct 33.6 L (42-52) % Immature Gran % (Auto) 1.2 H (0.0-0.4) % Neut % (Auto) 82.4 H (45-73) % Lymph % (Auto) 7.9 L (20-40) % Abs Immat Gran (auto) 0.17 H (0.00-0.03) X10*3/uL Absolute Neuts (auto) 12.2 H (2.0-8.3) X10*3/uL ESR (0-15) MM/HR PT 14.3 H (10.8-13.0) SEC INR 1.2 H (0.9-1.1) Sodium 134 L (135-145) mmol/L Carbon Dioxide (22-29) mmol/L BUN 21 H (9-16) mg/dL Creatinine 1.71 H (0.5-1.4) mg/dL POC Glucose (60-115) mg/dL Random Glucose 609 H* (60-115) mg/dL Calcium (8.4-10.2) mg/dL Total Bilirubin 1.1 H (0.0-1.0) mg/dL C-Reactive Protein 39.88 H (< or = 0.50) mg/dL 05/29/21 05/29/21 05/30/21 Range/Units 22:14 22:44 05:40 WBC 13.7 H (4.8-10.8) X10*3/uL RBC 3.88 L (4.60-5.80) X10*6/uL Hgb 10.7 L (14.0-18.0) g/dl Hct 32.5 L (42-52) % Immature Gran % (Auto) 2.0 H (0.0-0.4) % Neut % (Auto) 79.6 H (45-73) % Lymph % (Auto) 10.1 L (20-40) % Abs Immat Gran (auto) 0.28 H (0.00-0.03) X10*3/uL Absolute Neuts (auto) 10.9 H (2.0-8.3) X10*3/uL ESR 96 H (0-15) MM/HR PT (10.8-13.0) SEC INR (0.9-1.1) Sodium (135-145) mmol/L Carbon Dioxide (22-29) mmol/L BUN (9-16) mg/dL Creatinine (0.5-1.4) mg/dL POC Glucose 507 H* (60-115) mg/dL Random Glucose (60-115) mg/dL Calcium (8.4-10.2) mg/dL Total Bilirubin (0.0-1.0) mg/dL C-Reactive Protein (< or = 0.50) mg/dL 05/30/21 05/30/21 05/30/21 Range/Units 05:40 05:56 07:27 WBC (4.8-10.8) X10*3/uL RBC (4.60-5.80) X10*6/uL Hgb (14.0-18.0) g/dl Hct (42-52) % Immature Gran % (Auto) (0.0-0.4) % Neut % (Auto) (45-73) % Lymph % (Auto) (20-40) % Abs Immat Gran (auto) (0.00-0.03) X10*3/uL Absolute Neuts (auto) (2.0-8.3) X10*3/uL ESR (0-15) MM/HR PT (10.8-13.0) SEC INR (0.9-1.1) Sodium (135-145) mmol/L Carbon Dioxide 20 L (22-29) mmol/L BUN 18 H (9-16) mg/dL Creatinine (0.5-1.4) mg/dL POC Glucose 289 H 272 H (60-115) mg/dL Random Glucose 320 H D (60-115) mg/dL Calcium 8.2 L D (8.4-10.2) mg/dL Total Bilirubin (0.0-1.0) mg/dL C-Reactive Protein (< or = 0.50) mg/dL Short CBC 05/29/21 05/30/21 Range/Units 22:14 05:40 WBC 14.8 H 13.7 H (4.8-10.8) X10*3/uL Hgb 11.3 L 10.7 L (14.0-18.0) g/dl Hct 33.6 L 32.5 L (42-52) % Plt Count 217 209 (160-400) X10*3/uL BMP 05/29/21 05/30/21 22:14 05:40 Sodium 134 L 138 Potassium 4.2 3.9 Chloride 98 105 Carbon Dioxide 23 20 L BUN 21 H 18 H Creatinine 1.71 H 1.39 Calcium 9.1 8.2 L D Liver Function 05/29/21 Range/Units 22:14 Total Bilirubin 1.1 H (0.0-1.0) mg/dL All other labs normal. Assessment and Plan (1) Cellulitis and abscess of toe of right foot: Status: Acute Patient presents with an expanding area of redness and swelling in the right foot after an injury at the plantar surface. Findings are suggestive of a deep abscess although no abscess could be identified after debridement of desquamated skin. Patient is scheduled for an a right foot MRI which may help identifying a deeper abscess. Osteomyelitis of the distal 1st metatarsal head is also possibility. Continue local wound care and IV antibiotics. Will follow during his hospitalization and beyond. Procedures Date of Service Date of Service: 05/30/21
--- NOTE | 2021-05-30 11:12 | PC.NURSE ---
Skin/Wound assessment completed today. Patient has a diabetic ulcer at plantar base of great toe which extends to webbing of great toe and second toe. Dr. Bowser debrided and dressed wound today. He will F/U with patient. No other skin issues were found.
[2021-05-30] MEDS: vancomycin HCL 1,000 MG in 0.9 % Sodium Chloride 250 ML 270 MG IV ×2 (11:16→22:41)
[2021-05-30 11:32] LABS: Glucose, Whole Blood 233 mg/dL (60-115)
--- NOTE | 2021-05-30 12:12 | HO.PM.IMPN ---
Subjective Subjective Date of Service: 05/30/21 Interval History: no overnight issues denies fever, no chills, no foot pain noted to have wound/ laceration on plantar surface right foot that got severely worsened in last 2 days after he used compressions stockings ROS General no headache, no dizziness ,no fever chills. CVS no chest pain, no palpitation. Respiratory no cough, no sob Gastrointestinal no nausea, no vomiting, no abdominal pain Physical Exam Vital Signs: Vital Signs: Last Vital Signs Temp 98.8 F 05/30/21 11:18 Pulse 75 05/30/21 11:18 Resp 18 05/30/21 11:18 BP 120/62 05/30/21 11:18 Pulse Ox 92 05/30/21 11:18 Body Mass Index 37.5 General resting comfortably in no acute distress. Neck no JVD. CVS regular rate rhythm, Respiratory lungs clear to auscultation, no respiratory distress, no wheeze, no rhonchi. Gastrointestinal abdomen soft, nontender, bowel sounds audible Extremities Right foot swelling extending to mid leg, redness dorsum of foot, with blister between 1st and 2nd toe, callus and swelling at foot plantar, foul odor and drainage noted, decreased sensation foot psych appropriate affect neuro awake alert X3 Objective Data Current Medications Generic Name Dose Route Start Last Admin Trade Name Freq PRN Reason Stop Dose Admin Acetaminophen 650 mg 05/30/21 00:51 Acetaminophen Supp 650 Mg Supp.Rect [place] Q6H PRN Pain, Mild (Pain Scale 1-3) Atorvastatin Calcium 10 mg 05/30/21 21:00 Atorvastatin Calcium 10 Mg Tablet PO BEDTIME [facility] Docusate Sodium 100 mg 05/30/21 00:51 Docusate Sodium 100 Mg Capsule PO DAILY PRN Constipation Enoxaparin Sodium 40 mg 05/30/21 02:00 05/30/21 01:52 Enoxaparin Sodium 40 Mg/0.4 Ml Syringe SUBCUT 40 mg Q24H [facility]ION Administration Piperacillin Sod/Tazobactam 50 mls @ 100 mls/hr 05/30/21 06:00 05/30/21 06:21 Sod 3.375 gm/ Sodium Chloride IV Infused Q8H [facility]ION Infusion Lactated Ringer's 1,000 mls @ 125 mls/hr 05/30/21 05:45 05/30/21 06:37 Lr IVCONT 125 mls/hr .Q8H [facility] Administration Vancomycin HCl 1,000 mg/ 270 mls @ 270 mls/hr 05/30/21 11:00 05/30/21 11:16 Sodium Chloride IV 270 mls/hr Q12H [facility] Administration Imipramine HCl 10 mg 05/30/21 00:51 05/30/21 01:53 Imipramine Hcl 10 Mg Tablet PO Not Given BEDTIME [facility] Insulin Glargine 60 unit 05/30/21 09:00 05/30/21 09:07 Insulin Glargine,Hum.Rec.Anlog 100 Unit/Ml 10 Ml Vial SUBCUT 60 unit DAILY [facility] Administration Insulin Human Lispro 0 unit 05/30/21 07:30 05/30/21 11:49 Insulin Lispro 100 Unit/Ml 3 Ml Vial SUBCUT 4 unit QIDACHS [facility] Administration Protocol Levothyroxine Sodium 150 mcg 05/30/21 06:30 05/30/21 05:43 Levothyroxine Sodium 150 Mcg Tablet PO 150 mcg DAILY@0630 [facility] Administration Lisinopril 2.5 mg 05/30/21 09:00 05/30/21 09:07 Lisinopril 2.5 Mg Tablet PO 2.5 mg DAILY [facility] Administration Protocol Non-Formulary Medication 4 pump 05/30/21 09:00 Testosterone TOPICAL DAILY [facility] Omeprazole 20 mg 05/30/21 06:30 05/30/21 05:43 Omeprazole 20 Mg Capsule.Dr PO 20 mg DAILY@0630 [facility] Administration Ondansetron HCl 4 mg 05/30/21 00:51 Ondansetron Hcl 4 Mg/2 Ml Vial IVPUSH Q8H PRN Nausea and Vomiting Pharmacy Consult 1 each 05/30/21 00:51 Consult Rx Vancomycin Dosing MISCELLANE DAILY PRN Consult order Sodium Chloride 3 ml 05/30/21 00:51 05/30/21 09:07 0.9 % Sodium Chloride Flush 3 Ml Syringe IVFLUSH Not Given QSHIFT [facility] Labs CBC & Chem 7: 05/30/21 05:40 05/30/21 05:40 Labs: Laboratory Results - last 24 hr 05/29/21 05/29/21 05/29/21 22:14 22:14 22:14 WBC 14.8 H RBC 4.06 L Hgb 11.3 L Hct 33.6 L MCV 82.8 MCH 27.8 MCHC 33.6 RDW 13.3 Plt Count 217 MPV 10.6 Immature Gran % (Auto) 1.2 H Neut % (Auto) 82.4 H Lymph % (Auto) 7.9 L Collin % (Auto) 8.1 Eos % (Auto) 0.3 Baso % (Auto) 0.1 Lymph # (Auto) 1.2 Collin # (Auto) 1.2 Eos # (Auto) 0.0 Baso # (Auto) 0.0 Abs Immat Gran (auto) 0.17 H Absolute Neuts (auto) 12.2 H Absolute Nucleated RBC 0.000 Nucleated RBC % (auto) 0.0 ESR PT 14.3 H INR 1.2 H Sodium 134 L Potassium 4.2 Chloride 98 Carbon Dioxide 23 Anion Gap 17 BUN 21 H Creatinine 1.71 H Estim Creat Clear Calc 60.8 Estimated GFR 43 POC Glucose Random Glucose 609 H* Lactic Acid Calcium 9.1 Total Bilirubin 1.1 H C-Reactive Protein 39.88 H COVID-19 ([facility]) COVID-19 [employer] 05/29/21 05/29/21 05/29/21 22:14 22:14 22:44 WBC RBC Hgb Hct MCV MCH MCHC RDW Plt Count MPV Immature Gran % (Auto) Neut % (Auto) Lymph % (Auto) Collin % (Auto) Eos % (Auto) Baso % (Auto) Lymph # (Auto) Collin # (Auto) Eos # (Auto) Baso # (Auto) Abs Immat Gran (auto) Absolute Neuts (auto) Absolute Nucleated RBC Nucleated RBC % (auto) ESR 96 H PT INR Sodium Potassium Chloride Carbon Dioxide Anion Gap BUN Creatinine Estim Creat Clear Calc Estimated GFR POC Glucose 507 H* Random Glucose Lactic Acid 1.6 Calcium Total Bilirubin C-Reactive Protein COVID-19 ([facility]) COVID-19 [employer] 05/29/21 05/30/21 05/30/21 22:45 05:40 05:40 WBC 13.7 H RBC 3.88 L Hgb 10.7 L Hct 32.5 L MCV 83.8 MCH 27.6 MCHC 32.9 RDW 13.5 Plt Count 209 MPV 10.9 Immature Gran % (Auto) 2.0 H Neut % (Auto) 79.6 H Lymph % (Auto) 10.1 L Collin % (Auto) 7.4 Eos % (Auto) 0.7 Baso % (Auto) 0.2 Lymph # (Auto) 1.4 Collin # (Auto) 1.0 Eos # (Auto) 0.1 Baso # (Auto) 0.0 Abs Immat Gran (auto) 0.28 H Absolute Neuts (auto) 10.9 H Absolute Nucleated RBC 0.000 Nucleated RBC % (auto) 0.0 ESR PT INR Sodium 138 Potassium 3.9 Chloride 105 Carbon Dioxide 20 L Anion Gap 17 BUN 18 H Creatinine 1.39 Estim Creat Clear Calc 74.8 Estimated GFR 54 POC Glucose Random Glucose 320 H D Lactic Acid Calcium 8.2 L D Total Bilirubin C-Reactive Protein COVID-19 ([facility]) Negative COVID-19 Clin Com See Note 05/30/21 05/30/21 05/30/21 05:56 07:27 11:18 WBC RBC Hgb Hct MCV MCH MCHC RDW Plt Count MPV Immature Gran % (Auto) Neut % (Auto) Lymph % (Auto) Collin % (Auto) Eos % (Auto) Baso % (Auto) Lymph # (Auto) Collin # (Auto) Eos # (Auto) Baso # (Auto) Abs Immat Gran (auto) Absolute Neuts (auto) Absolute Nucleated RBC Nucleated RBC % (auto) ESR PT INR Sodium Potassium Chloride Carbon Dioxide Anion Gap BUN Creatinine Estim Creat Clear Calc Estimated GFR POC Glucose 289 H 272 H 233 H Random Glucose Lactic Acid Calcium Total Bilirubin C-Reactive Protein COVID-19 ([facility]) COVID-19 Clin Com Microbiology Microbiology Results: Microbiology 05/29/21 22:45 Urine Culture - Preliminary Urine clean catch - Clean Catch Midstream No growth to date. Quality Stroke Does the patient have a stroke diagnosis?: No VTE Prior VTE?: No VTE Risk Level:: Medical - moderate - high VTE Device Contraindication: Treatment Not Indicated VTE Drug Contraindication: N/A - Med Ordered Assessment and Plan (1) Cellulitis and abscess of toe of right foot: Status: Acute (2) Sepsis: Status: Acute (3) Obesity (BMI 30-39.9): Status: Acute (4) BPH (benign prostatic hyperplasia): Status: Acute (5) GERD (gastroesophageal reflux disease): Status: Acute (6) Hypercholesterolemia: Status: Acute (7) Hypertension: Status: Acute (8) Type 2 diabetes mellitus with hyperglycemia: Status: Acute Assessment and Plan: 50-year-old male with past medical history of diabetes and diabetic neuropathy who presents the hospital with blister of his right foot # sepsis secondary to rt. foot infection/ osteomyelitis foot x-ray showed Air in the soft tissues and soft tissue swelling over the MTP joints.No fracture, soft tissue foreign body or x-ray evidence of osteomyelitis seen. all symptoms of sepsis including tachycardic, leukocytosis, and tachypnea resolved , normal lactic acid, no fever will continue IV vanco and Zosyn day 1,follow blood cultures, await surgical and infectious disease consult, follow ESR and CRP significantly elevated, WBC trending down, follow MRI report # [facility] - possibly secondary to acute infection, resolved with IV fluid, will follow renal function closely while on vancomycin avoid hypotension. # diabetes mellitus with hyperglycemia blood sugar 507 on arrival, improved to 230 this am, Continue lantus and insulin sliding scale, continue diabetic diet, follow blood sugar closely and adjust insulin dose # hypothyroidism - continue levothyroxine # HLD - continue statin # hypertension - soft BP will discontinue lisinopril DVT prophylaxis: on Lovenox
--- NOTE | 2021-05-30 13:07 | MHC.CM.PN ---
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 HE REPORTED HE CHECKS HIS POC 1X QD ADMITTED FOR Extremities Right foot swelling extending to mid leg, redness dorsum of foot, with blister between 1st and 2nd toe, callus and swelling at foot plantar, foul odor and drainage, decreased sensation on foot has diabetes with nephro[piedad DISCHARGE PLAN HOME WITH NO SERVICES VS HOME WITH NEW REFERRAL TO [facility] FOR [facility] [employer] SYMPTOM MANAGEMENT , MEDICATION RECONCILATION. PCPDR CAIT ALEMAN PATIENT TO CALL FOR [facility] DISCHARGE FOLLOW TRANSPORTATION FAMILY
--- NOTE | 2021-05-30 15:36 | W.PM.IDCN ---
History of Present Illness Data of Consult Service Date: 05/30/21 Requesting physician: Jim Griffin Primary Care Provider: Miroslava Landry MD HPI Reason for consult: right foot wound,diabetic He presents to hospital with redness,discomfort and swelling right foot. He has had this as well as blister dorsal foot after fishing and standing on rocks five days ago He has some tinea pedis as well Review of Systems Review of Systems: Yes all other systems are reviewed and are negative [facility] Past Medical History Medical History Asthma Autoimmune thyroiditis BPH (benign prostatic hyperplasia) Erectile dysfunction GERD (gastroesophageal reflux disease) Hypercholesterolemia Hypertension Legally blind in left eye, as defined in [place] Neuropathy Obesity (BMI 30-39.9) Type 2 diabetes mellitus with hyperglycemia Family History Family History Father No problems noted. Mother Skin cancer Hypertension Diabetes Maternal Grandmother Diabetes Hypertension Maternal Grandfather Stroke Diabetes Hypertension Maternal Aunt Cancer Sister No problems noted. Brother No problems noted. 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 LEFT) Current occupational status: other Meds Allergies Allergy/AdvReac Type Severity Reaction Status Date / Time dog dander Allergy Unknown Ithcy Verified 02/10/21 13:01 metformin [METFORMIN] Allergy Unknown LACTIC Verified 02/10/21 13:01 ACIDOSIS nut - unspecified Allergy Unknown hives/throat Verified 02/10/21 13:01 constriction sunflower seeds Allergy Unknown throat Uncoded 12/31/20 17:23 itchiness Active Medications: Current Medications Generic Name Dose Route Start Last Admin Trade Name Freq PRN Reason Stop Dose Admin Acetaminophen 650 mg 05/30/21 00:51 Acetaminophen Supp 650 Mg Supp.Rect [place] Q6H PRN Pain, Mild (Pain Scale 1-3) Atorvastatin Calcium 10 mg 05/30/21 21:00 Atorvastatin Calcium 10 Mg Tablet PO BEDTIME [facility] Docusate Sodium 100 mg 05/30/21 00:51 Docusate Sodium 100 Mg Capsule PO DAILY PRN Constipation Enoxaparin Sodium 40 mg 05/30/21 02:00 05/30/21 01:52 Enoxaparin Sodium 40 Mg/0.4 Ml Syringe SUBCUT 40 mg Q24H [facility] Administration Piperacillin Sod/Tazobactam 50 mls @ 100 mls/hr 05/30/21 06:00 05/30/21 14:46 Sod 3.375 gm/ Sodium Chloride IV Infused Q8H [facility] Infusion Lactated Ringer's 1,000 mls @ 75 mls/hr 05/30/21 05:45 05/30/21 14:50 Lr IVCONT Infused .[id number] [facility] Infusion Vancomycin HCl 1,000 mg/ 270 mls @ 270 mls/hr 05/30/21 11:00 05/30/21 12:35 Sodium Chloride IV Infused Q12H [facility] Infusion Imipramine HCl 10 mg 05/30/21 00:51 05/30/21 01:53 Imipramine Hcl 10 Mg Tablet PO Not Given BEDTIME [facility] Insulin Glargine 60 unit 05/30/21 09:00 05/30/21 09:07 Insulin Glargine,Hum.Rec.Anlog 100 Unit/Ml 10 Ml Vial SUBCUT 60 unit DAILY [facility] Administration Insulin Human Lispro 0 unit 05/30/21 07:30 05/30/21 11:49 Insulin Lispro 100 Unit/Ml 3 Ml Vial SUBCUT 4 unit QIDACHS [facility] Administration Protocol Levothyroxine Sodium 150 mcg 05/30/21 06:30 05/30/21 05:43 Levothyroxine Sodium 150 Mcg Tablet PO 150 mcg DAILY@0630 [facility] Administration Patient Own 4 each 05/31/21 09:00 Medication - TOPICAL Testosterone Gel 1. DAILY [facility] 62% Omeprazole 20 mg 05/30/21 06:30 05/30/21 05:43 Omeprazole 20 Mg Capsule.Dr PO 20 mg DAILY@0630 [facility] Administration Ondansetron HCl 4 mg 05/30/21 00:51 Ondansetron Hcl 4 Mg/2 Ml Vial IVPUSH Q8H PRN Nausea and Vomiting Pharmacy Consult 1 each 05/30/21 00:51 Consult Rx Vancomycin Dosing MISCELLANE DAILY PRN Consult order Sodium Chloride 3 ml 05/30/21 00:51 05/30/21 09:07 0.9 % Sodium Chloride Flush 3 Ml [facility]ringe [facility]USH [facility] Medication Instructions Recorded Confirmed Last Taken Type imipramine HCl 1 tab PO BEDTIME 05/29/21 05/29/21 Unknown History insulin glargine [Lantus Solostar 60 unit SUBCUT DAILY 05/29/21 05/29/21 Unknown History U-100 Insulin] levothyroxine 1 tab PO DAILY 05/29/21 05/29/21 Unknown History lisinopril 1 tab PO DAILY 05/29/21 05/29/21 Unknown History omeprazole 1 cap PO DAILY 05/29/21 05/29/21 Unknown History pen needle, diabetic [BD 05/29/21 05/29/21 Unknown History Ultra-Fine Short Pen Needle] pioglitazone 1 tab PO DAILY 05/29/21 05/29/21 Unknown History sildenafil 1 tab PO DAILY PRN 05/29/21 05/29/21 Unknown History simvastatin 1 tab PO BEDTIME 05/29/21 05/29/21 Unknown History testosterone 4 pump TOPICAL DAILY 05/29/21 05/29/21 Unknown History Physical Exam Vital Signs: Vital Signs: Last Vital Signs Temp 100.5 F H 05/30/21 15:05 Pulse 126 H 05/30/21 15:05 Resp 17 05/30/21 15:05 BP 107/50 L 05/30/21 15:05 Pulse Ox 92 05/30/21 15:05 Body Mass Index 37.5 HENMT: Head: Yes normal to inspection Mouth: Normal oral and palatal mucosa present Resp: Effort & Inspection: normal respiratory effort Cardio: Rate: regular rate Rhythm: regular rhythm GI: Palpation (GI): Soft to palpation and nontender Skin: General skin exam: no rashes or lesions noted Extrem: Other: right foot scab second toe,yellowish exudate,plantar ulcer,tinea pedis Results Labs CBC & Chem 7: 05/30/21 05:40 05/30/21 05:40 Labs: Short CBC 05/29/21 05/30/21 Range/Units 22:14 05:40 WBC 14.8 H 13.7 H (4.8-10.8) X10*3/uL Hgb 11.3 L 10.7 L (14.0-18.0) g/dl Hct 33.6 L 32.5 L (42-52) % Plt Count 217 209 (160-400) X10*3/uL BMP 05/29/21 05/30/21 22:14 05:40 Sodium 134 L 138 Potassium 4.2 3.9 Chloride 98 105 Carbon Dioxide 23 20 L BUN 21 H 18 H Creatinine 1.71 H 1.39 Calcium 9.1 8.2 L D Liver Function 05/29/21 Range/Units 22:14 Total Bilirubin 1.1 H (0.0-1.0) mg/dL Microbiology Microbiology Results: Microbiology 05/29/21 22:45 Urine clean catch - Clean Catch Midstream Urine Culture - Preliminary No growth to date. 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
[2021-05-30 17:27] LABS: Glucose, Whole Blood 338 mg/dL (60-115)
[2021-05-30 20:33] LABS: Glucose, Whole Blood 269 mg/dL (60-115)
[2021-05-30] MEDS: Atorvastatin Calcium 10 MG TABLET PO (21:51)
[2021-05-30] MEDS: Imipramine HCl 10 MG TABLET PO (21:51)
[2021-05-31] MEDS: Enoxaparin Sodium 40 MG/0.4 ML SYRINGE SUBCUT (02:34)
[2021-05-31 03:47] VITALS: BP 130/73; PULSE 104; RESP 18; TEMP 36.4; O2SAT 92
[2021-05-31] MEDS: Piperacillin Sodium/Tazobactam 3.375 GM in 0.9 % Sodium Chloride 50 ML IV ×3 (05:41→21:31)
[2021-05-31] MEDS: Levothyroxine Sodium 150 MCG TABLET PO (06:12)
[2021-05-31] MEDS: Omeprazole 20 MG CAPSULE.DR PO (06:12)
[2021-05-31] MEDS: Lactated Ringers 1,000 ML 75 ML IVCONT (06:33)
[2021-05-31 06:44] LABS: MANUAL DIFF FLAG NO
[2021-05-31 06:54] LABS: Basophils Percent Auto 0.2 % (0-2); Eosinophils Absolute Auto 0.1 X10*3/uL (0.0-0.4); Eosinophils Percent Auto 0.4 % (0-4); Hematocrit 28.5 % (42-52); Hemoglobin 9.4 g/dl (14.0-18.0); Imm Gran Abs Auto 0.39 X10*3/uL (0.00-0.03); Imm Gran Pct Auto 2.4 % (0.0-0.4); Lymphocytes Absolute Auto 2.1 X10*3/uL (1.2-4.9); Lymphocytes Percent Auto 13.1 % (20-40); Mean Corpuscular Hemoglobin 27.8 pg (27.0-33.0); Mean Corpuscular Volume 84.3 fL (80-98); Monocytes Absolute Auto 1.1 X10*3/uL (0.1-1.2); Monocytes Percent Auto 6.8 % (2-11); Neutrophils Absolute Auto 12.3 X10*3/uL (2.0-8.3); Neutrophils Percent Auto 77.1 % (45-73); Platelet Count 282 X10*3/uL (160-400); Red Blood Count 3.38 X10*6/uL (4.60-5.80)
[2021-05-31 07:30] LABS: Anion Gap 18 (12-20); Blood Urea Nitrogen 21 mg/dL (9-16); Calcium 8.1 mg/dL (8.4-10.2); Carbon Dioxide 19 mmol/L (22-29); Chloride 109 mmol/L (96-108); Creatinine Clr Calc Pharmacy 54.4; Estimated Glomerular Filt Rate 37; Glucose Random 173 mg/dL (60-115); Potassium 3.7 mmol/L (3.3-5.1); Sodium 142 mmol/L (135-145)
[2021-05-31 07:41] LABS: Glucose, Whole Blood 169 mg/dL (60-115)
[2021-05-31 08:00] VITALS: BP 123/70; PULSE 99; RESP 20; TEMP 36; O2SAT 94
[2021-05-31] MEDS: Insulin Glargine,Hum.rec.anlog 100 UNIT/ML 10 ML VIAL 60 UNIT SUBCUT (08:09)
[2021-05-31] MEDS: Insulin Lispro 100 UNIT/ML 3 ML VIAL SUBCUT ×4 (08:10→21:13)
--- NOTE | 2021-05-31 09:15 | PM.PNGS ---
Subjective Subjective Date of Service: 05/31/21 Interval history: says he feels well today some pain on right foot no fever Physical Exam Vital Signs: Vital Signs: Last Vital Signs Temp 97.5 F 05/31/21 03:47 Pulse 104 H 05/31/21 03:47 Resp 18 05/31/21 03:47 BP 130/73 05/31/21 03:47 Pulse Ox 92 05/31/21 03:47 Body Mass Index 37.5 PT 14.3 SEC (10.8-13 .0) H 05/29/21 22:14 Laboratory Results - last 24 hr 05/30/21 05/30/21 05/30/21 11:18 17:22 20:26 WBC RBC Hgb Hct MCV MCH MCHC RDW Plt Count MPV Immature Gran % (A uto) Neut % (Auto) Lymph % (Auto) Banks % (Auto) Eos % (Auto) Baso % (Auto) Lymph # (Auto) [place] # (Auto) Eos # (Auto) Baso # (Auto) Abs Immat Gran (au to) Absolute Neuts (au to) Absolute Nucleated RBC Nucleated RBC % (a uto) Sodium Potassium Chloride Carbon Dioxide Anion Gap BUN Creatinine Estim Creat Clear Calc Estimated GFR POC Glucose 233 H 338 H 269 H Random Glucose Calcium 05/31/21 05/31/21 05/31/21 06:05 06:05 07:30 WBC 16.0 H RBC 3.38 L Hgb 9.4 L Hct 28.5 L MCV 84.3 MCH 27.8 MCHC 33.0 RDW 14.0 Plt Count 282 D MPV 11.0 Immature Gran % (A uto) 2.4 H Neut % (Auto) 77.1 H Lymph % (Auto) 13.1 L Banks % (Auto) 6.8 Eos % (Auto) 0.4 Baso % (Auto) 0.2 Lymph # (Auto) 2.1 Banks # (Auto) 1.1 Eos # (Auto) 0.1 Baso # (Auto) 0.0 Abs Immat Gran (au to) 0.39 H Absolute Neuts (au to) 12.3 H Absolute Nucleated RBC 0.000 Nucleated RBC % (a uto) 0.0 Sodium 142 Potassium 3.7 Chloride 109 H Carbon Dioxide 19 L Anion Gap 18 BUN 21 H Creatinine 1.91 H Estim Creat Clear Calc 54.4 Estimated GFR 37 POC Glucose 169 H Random Glucose 173 H D Calcium 8.1 L Const: Other: looks well General: comfortable and no acute distress Resp: Effort & Inspection: normal respiratory effort Cardio: Rhythm: regular rhythm GI: Palpation (GI): Soft to palpation and nontender Extrem: Other: right foot - debrided area around big toe, 2nd toe clean, no evidence of necrotizing process Progress Note: A&P Assessment and plan (1) Diabetic foot ulcer: Status: Acute Assessment and Plan: area debrided at bedside MRI - no abscess; air seen likely tracking from open wound IV abx wound care no necrotizing process will follow Fall Risk Details Current Medications: Current Medications Generic Name Dose Route Start Last Admin Trade Name Freq PRN Reason Stop Dose Admin Acetaminophen 650 mg 05/30/21 00:51 Acetaminophen Supp 650 Mg Supp.Rect [place] Q6H PRN Pain, Mild (Pain Scale 1-3) Atorvastatin Calcium 10 mg 05/30/21 21:00 05/30/21 21:51 Atorvastatin Calcium 10 Mg Tablet PO 10 mg BEDTIME [facility] Administration Docusate Sodium 100 mg 05/30/21 00:51 Docusate Sodium 100 Mg Capsule PO DAILY PRN Constipation Enoxaparin Sodium 40 mg 05/30/21 02:00 05/31/21 02:34 Enoxaparin Sodium 40 Mg/0.4 Ml Syringe SUBCUT 40 mg Q24H [facility] Administration Piperacillin Sod/Tazobactam 50 mls @ 100 mls/hr 05/30/21 06:00 05/31/21 06:14 Sod 3.375 gm/ Sodium Chloride IV Infused Q8H [facility] Infusion Lactated Ringer's 1,000 mls @ 75 mls/hr 05/30/21 05:45 05/31/21 06:33 Lr IVCONT 75 mls/hr .[id number] [facility] Administration Vancomycin HCl 1,000 mg/ 270 mls @ 270 mls/hr 05/30/21 11:00 05/30/21 23:53 Sodium Chloride IV Infused Q12H [facility] Infusion Imipramine HCl 10 mg 05/30/21 00:51 05/30/21 21:51 Imipramine Hcl 10 Mg Tablet PO 10 mg BEDTIME [facility] Administration Insulin Glargine 60 unit 05/30/21 09:00 05/31/21 08:09 Insulin Glargine,Hum.Rec.Anlog 100 Unit/Ml 10 Ml Vial SUBCUT 60 unit DAILY [facility] Administration Insulin Human Lispro 0 unit 05/30/21 07:30 05/31/21 08:10 Insulin Lispro 100 Unit/Ml 3 Ml Vial SUBCUT 2 unit QIDACHS [facility] Administration Protocol Levothyroxine Sodium 150 mcg 05/30/21 06:30 05/31/21 06:12 Levothyroxine Sodium 150 Mcg Tablet PO 150 mcg DAILY@0630 [facility] Administration Patient Own 4 each 05/31/21 09:00 05/31/21 08:10 Medication - TOPICAL 4 each Testosterone Gel 1. DAILY [facility] Administration 62% Omeprazole 20 mg 05/30/21 06:30 05/31/21 06:12 Omeprazole 20 Mg Capsule.Dr PO 20 mg DAILY@0630 [facility] Administration Ondansetron HCl 4 mg 05/30/21 00:51 Ondansetron Hcl 4 Mg/2 Ml Vial IVPUSH Q8H PRN Nausea and Vomiting Pharmacy Consult 1 each 05/30/21 00:51 Consult Rx Vancomycin Dosing MISCELLANE DAILY PRN Consult order Sodium Chloride 3 ml 05/30/21 00:51 05/31/21 08:10 0.9 % Sodium Chloride Flush 3 Ml Syringe IVFLUSH Not Given QSHIFT [facility] Time Spent With Patient Time: Total time spent is greater than 50% in coordination of care (as documented) at patient's floor/unit and/or counseling patient: Time with patient: 15 - 24 minutes Procedures Date of Service Date of Service: 05/31/21 Quality Stroke Does the patient have a stroke diagnosis?: No VTE Prior VTE?: No VTE Risk Level:: Medical - moderate - high VTE Device Contraindication: Treatment Not Indicated VTE Drug Contraindication: N/A - Med Ordered
--- NOTE | 2021-05-31 09:43 | HO.PM.IMPN ---
Subjective Subjective Date of Service: 05/31/21 Interval History: Seen in f/u for ulcerative cellulitis of the right foot, MRI showed no osteo, by patient's account it is better today. Pain is controlled. Review of Systems Gen: no fever Resp: no sob, no cough CV: no chest, no ASCENCIO, no leg edema GI: No n/v, no abd pain Neuro: No confusion MSK: pain in the right foot Physical Exam Vital Signs: Vital Signs: Last Vital Signs Temp 97.5 F 05/31/21 03:47 Pulse 104 H 05/31/21 03:47 Resp 18 05/31/21 03:47 BP 130/73 05/31/21 03:47 Pulse Ox 92 05/31/21 03:47 Body Mass Index 37.5 Const: Other: General: AO X 3, no acute distress Resp: CTA bilateral CVS: S1,S2,RRR GI: +BS, NT, no distention Skin: Neuro: motor grossly intact Psych: appropriate affect Objective Data Current Medications Generic Name Dose Route Start Last Admin Trade Name Freq PRN Reason Stop Dose Admin Acetaminophen 650 mg 05/30/21 00:51 Acetaminophen Supp 650 Mg Supp.Rect IA Q6H PRN Pain, Mild (Pain Scale 1-3) Atorvastatin Calcium 10 mg 05/30/21 21:00 05/30/21 21:51 Atorvastatin Calcium 10 Mg Tablet PO 10 mg BEDTIME [facility] Administration Docusate Sodium 100 mg 05/30/21 00:51 Docusate Sodium 100 Mg Capsule PO DAILY PRN Constipation Enoxaparin Sodium 40 mg 05/30/21 02:00 05/31/21 02:34 Enoxaparin Sodium 40 Mg/0.4 Ml Syringe SUBCUT 40 mg Q24H [facility] Administration Piperacillin Sod/Tazobactam 50 mls @ 100 mls/hr 05/30/21 06:00 05/31/21 06:14 Sod 3.375 gm/ Sodium Chloride IV Infused Q8H [facility] Infusion Lactated Ringer's 1,000 mls @ 75 mls/hr 05/30/21 05:45 05/31/21 06:33 Lr IVCONT 75 mls/hr .[id number] [facility]ION Administration Vancomycin HCl 1,000 mg/ 270 mls @ 270 mls/hr 05/30/21 11:00 05/30/21 23:53 Sodium Chloride IV Infused Q12H [facility] Infusion Imipramine HCl 10 mg 05/30/21 00:51 05/30/21 21:51 Imipramine Hcl 10 Mg Tablet PO 10 mg BEDTIME [facility]ION Administration Insulin Glargine 60 unit 05/30/21 09:00 05/31/21 08:09 Insulin Glargine,Hum.Rec.Anlog 100 Unit/Ml 10 Ml Vial SUBCUT 60 unit DAILY [facility] Administration Insulin Human Lispro 0 unit 05/30/21 07:30 05/31/21 08:10 Insulin Lispro 100 Unit/Ml 3 Ml Vial SUBCUT 2 unit QIDACHS [facility] Administration Protocol Levothyroxine Sodium 150 mcg 05/30/21 06:30 05/31/21 06:12 Levothyroxine Sodium 150 Mcg Tablet PO 150 mcg DAILY@0630 [facility] Administration Patient Own 4 each 05/31/21 09:00 05/31/21 08:10 Medication - TOPICAL 4 each Testosterone Gel 1. DAILY [facility]ION Administration 62% Omeprazole 20 mg 05/30/21 06:30 05/31/21 06:12 Omeprazole 20 Mg Capsule. PO 20 mg DAILY@0630 [facility] Administration Ondansetron HCl 4 mg 05/30/21 00:51 Ondansetron Hcl 4 Mg/2 Ml Vial IVPUSH Q8H PRN Nausea and Vomiting Pharmacy Consult 1 each 05/30/21 00:51 Consult Rx Vancomycin Dosing MISCELLANE DAILY PRN Consult order Sodium Chloride 3 ml 05/30/21 00:51 05/31/21 08:10 0.9 % Sodium Chloride Flush 3 Ml Syringe IVFLUSH Not Given QSHIFT [facility] Labs CBC & Chem 7: 05/31/21 06:05 05/31/21 06:05 Labs: Laboratory Results - last 24 hr 05/30/21 05/30/21 05/30/21 11:18 17:22 20:26 WBC RBC Hgb Hct MCV MCH MCHC RDW Plt Count MPV Immature Gran % (Auto) Neut % (Auto) Lymph % (Auto) Henry % (Auto) Eos % (Auto) Baso % (Auto) Lymph # (Auto) Henry # (Auto) Eos # (Auto) Baso # (Auto) Abs Immat Gran (auto) Absolute Neuts (auto) Absolute Nucleated RBC Nucleated RBC % (auto) Sodium Potassium Chloride Carbon Dioxide Anion Gap BUN Creatinine Estim Creat Clear Calc Estimated GFR POC Glucose 233 H 338 H 269 H Random Glucose Calcium 05/31/21 05/31/21 05/31/21 06:05 06:05 07:30 WBC 16.0 H RBC 3.38 L Hgb 9.4 L Hct 28.5 L MCV 84.3 MCH 27.8 MCHC 33.0 RDW 14.0 Plt Count 282 D MPV 11.0 Immature Gran % (Auto) 2.4 H Neut % (Auto) 77.1 H Lymph % (Auto) 13.1 L Henry % (Auto) 6.8 Eos % (Auto) 0.4 Baso % (Auto) 0.2 Lymph # (Auto) 2.1 Henry # (Auto) 1.1 Eos # (Auto) 0.1 Baso # (Auto) 0.0 Abs Immat Gran (auto) 0.39 H Absolute Neuts (auto) 12.3 H Absolute Nucleated RBC 0.000 Nucleated RBC % (auto) 0.0 Sodium 142 Potassium 3.7 Chloride 109 H Carbon Dioxide 19 L Anion Gap 18 BUN 21 H Creatinine 1.91 H Estim Creat Clear Calc 54.4 Estimated GFR 37 POC Glucose 169 H Random Glucose 173 H D Calcium 8.1 L Microbiology Microbiology Results: Microbiology 05/29/21 22:45 Urine Culture - Final Urine clean catch - Clean Catch Midstream No growth. 05/29/21 22:14 Blood Culture - Preliminary Blood - Venous No growth after 24 hours. 05/29/21 22:14 Blood Culture - Preliminary Blood - Venous No growth after 24 hours. Quality Stroke Does the patient have a stroke diagnosis?: No VTE Prior VTE?: No VTE Risk Level:: Medical - moderate - high VTE Device Contraindication: Treatment Not Indicated VTE Drug Contraindication: N/A - Med Ordered Assessment and Plan (1) Cellulitis and abscess of toe of right foot: Status: Acute (2) Sepsis: Status: Acute (3) Obesity (BMI 30-39.9): Status: Acute (4) BPH (benign prostatic hyperplasia): Status: Acute (5) GERD (gastroesophageal reflux disease): Status: Acute (6) Hypercholesterolemia: Status: Acute (7) Hypertension: Status: Acute (8) Type 2 diabetes mellitus with hyperglycemia: Status: Acute Assessment and Plan: 50-year-old male with past medical history of diabetes and diabetic neuropathy who presents the hospital with blister of his right foot and found to have sepsis, cellulitis # sepsis secondar cellulitis and necrotic ulcer. No Osteomylitis by MRI. Air seen is tracking from open, no necrotizing fascitis. Blood cultures so far negative. Continue broad spec ABx with Zosyn and Vanco and reassess. I and Surgery following, no indication for further debridment at this time. # ARSH--likely from pre renal process, concern for possible infectious related ATN, consider decreasing Vanco or discontinue altogether. Get renal involve early. IVF and reassess tomorrow with repeat labs. # diabetes mellitus with hyperglycemia--Fastsing sugar of 169 today, continue Lantus and SSI. Check A1c # hypothyroidism - continue levothyroxine # HLD - continue statin # hypertension - soft BP will discontinue lisinopril Patient's condition is serious with high risk of loss of limb and needs continuing therapy with IV Abx. DVT prophylaxis: on Lovenox
[2021-05-31 10:45] LABS: Vancomycin Trough 11.8 mcg/mL (10.0-20.0)
[2021-05-31 11:19] LABS: Glucose, Whole Blood 204 mg/dL (60-115)
[2021-05-31 12:00] VITALS: BP 143/76; PULSE 112; RESP 18; TEMP 36.9; O2SAT 92
--- NOTE | 2021-05-31 14:15 | P.PNID_ITS ---
Subjective Subjective Date of Service: 05/31/21 Critical Care Time (minutes): 15 Comment: diabetic foot infection He is sleeping He has increased creatine today1.9 MRI shows no osteomyelitis Objective Data Labs CBC & Chem 7: 05/31/21 06:05 05/31/21 06:05 Labs: Laboratory Results - last 24 hr 05/30/21 05/30/21 05/31/21 17:22 20:26 06:05 WBC 16.0 H RBC 3.38 L Hgb 9.4 L Hct 28.5 L MCV 84.3 MCH 27.8 MCHC 33.0 RDW 14.0 Plt Count 282 D MPV 11.0 Immature Gran % (Auto) 2.4 H Neut % (Auto) 77.1 H Lymph % (Auto) 13.1 L Trinity % (Auto) 6.8 Eos % (Auto) 0.4 Baso % (Auto) 0.2 Lymph # (Auto) 2.1 Trinity # (Auto) 1.1 Eos # (Auto) 0.1 Baso # (Auto) 0.0 Abs Immat Gran (auto) 0.39 H Absolute Neuts (auto) 12.3 H Absolute Nucleated RBC 0.000 Nucleated RBC % (auto) 0.0 Sodium Potassium Chloride Carbon Dioxide Anion Gap BUN Creatinine Estim Creat Clear Calc Estimated GFR POC Glucose 338 H 269 H Random Glucose Calcium Vancomycin Trough 05/31/21 05/31/21 05/31/21 06:05 07:30 10:07 WBC RBC Hgb Hct MCV MCH MCHC RDW Plt Count MPV Immature Gran % (Auto) Neut % (Auto) Lymph % (Auto) Trinity % (Auto) Eos % (Auto) Baso % (Auto) Lymph # (Auto) Trinity # (Auto) Eos # (Auto) Baso # (Auto) Abs Immat Gran (auto) Absolute Neuts (auto) Absolute Nucleated RBC Nucleated RBC % (auto) Sodium 142 Potassium 3.7 Chloride 109 H Carbon Dioxide 19 L Anion Gap 18 BUN 21 H Creatinine 1.91 H Estim Creat Clear Calc 54.4 Estimated GFR 37 POC Glucose 169 H Random Glucose 173 H D Calcium 8.1 L Vancomycin Trough 11.8 05/31/21 11:14 WBC RBC Hgb Hct MCV MCH MCHC RDW Plt Count MPV Immature Gran % (Auto) Neut % (Auto) Lymph % (Auto) Trinity % (Auto) Eos % (Auto) Baso % (Auto) Lymph # (Auto) Trinity # (Auto) Eos # (Auto) Baso # (Auto) Abs Immat Gran (auto) Absolute Neuts (auto) Absolute Nucleated RBC Nucleated RBC % (auto) Sodium Potassium Chloride Carbon Dioxide Anion Gap BUN Creatinine Estim Creat Clear Calc Estimated GFR POC Glucose 204 H Random Glucose Calcium Vancomycin Trough Microbiology Microbiology Results: Microbiology 05/29/21 22:45 Urine clean catch - Clean Catch Midstream Urine Culture - Final No growth. 05/29/21 22:14 Blood - Venous Blood Culture - Preliminary No growth after 24 hours. 05/29/21 22:14 Blood - Venous Blood Culture - Preliminary No growth after 24 hours. Physical Exam Vital Signs: Vital Signs: Last Vital Signs Temp 98.4 F 05/31/21 12:00 Pulse 112 H 05/31/21 12:00 Resp 18 05/31/21 12:00 BP 143/76 H 05/31/21 12:00 Pulse Ox 92 05/31/21 12:00 Body Mass Index 37.5 Const: General: cooperative HENMT: Head: Yes normal to inspection Mouth: Normal oral and palatal mucosa present Resp: Effort & Inspection: normal respiratory effort Cardio: Rate: regular rate Rhythm: regular rhythm GI: Palpation (GI): nontender Skin: General skin exam: no rashes or lesions noted Extrem: Other: foot ulcer,stable Assessment and Plan Assessment and plan (1) Diabetic foot ulcer: Problem details: He has increased creatinine No MRSA found Status: Acute Assessment and Plan: Agree stop Vancomycin Home po Doxycycline and Augmentin 250 mg bid for a week Time Spent With Patient Time: Total time spent is greater than 50% in coordination of care (as documented) at patient's floor/unit and/or counseling patient: Time with patient: 15 - 24 minutes
[2021-05-31 15:15] VITALS: BP 148/76; PULSE 111; RESP 16; TEMP 37.8; O2SAT 91
[2021-05-31] MEDS: oxyCODONE HCl Immed Release 5 MG TABLET PO (15:52)
--- NOTE | 2021-05-31 16:05 | P.CONNP_ITS ---
History of Present Illness Reason for Consult Consult date: 05/31/21 Reason for consult: ARSH Chief Complaint Chief complaint: osteomyelitis, diabetic foot ulcer History of Present Illness Narrative: Mr. Gino Macdonald is a 50-year-old gentleman with past medical history of uncontrolled DM2, HTN, BPH (4-episodes of nocturia), diarrhea/incontinence of stool, left eye blindness, who presented on 05/29/2021 with foot infection. Osteomyelitis was ruled out, but patient appears to have some gas gangrene soft tissue infection of his right plantar foot. He is now on Doxy/Augmentin. Course complicated by ARSH with Cr rise to 1.9mg/dL. Review of Systems Review of Systems Gen: no fever Resp: no sob, no cough CV: no chest, no ASCENCIO, no leg edema GI: No n/v, no abd pain Neuro: No confusion MSK: pain in the right foot Yes all other systems are reviewed and are negative Constitutional: Denies chills, Denies fatigue and Denies fever(s) Cardiovascular: Denies chest pain, Reports pedal edema, Denies irregular heart rhythm and Denies orthopnea Respiratory: Denies chest congestion, Denies cough and Denies hemoptysis Gastrointestinal: Reports no additional gastrointestinal complaints Musculoskeletal: Reports as per HPI Endocrine: Denies fatigue Hematologic/Lymphatic: Denies lymphadenopathy PMFSH Past Medical History Medical History Asthma Autoimmune thyroiditis BPH (benign prostatic hyperplasia) Erectile dysfunction GERD (gastroesophageal reflux disease) Hypercholesterolemia Hypertension Legally blind in left eye, as defined in [place] Neuropathy Obesity (BMI 30-39.9) Type 2 diabetes mellitus with hyperglycemia Family History Family History Father No problems noted. Mother Skin cancer Hypertension Diabetes Maternal Grandmother Diabetes Hypertension Maternal Grandfather Stroke Diabetes Hypertension Maternal Aunt Cancer Sister No problems noted. Brother No problems noted. 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 LEFT) Current occupational status: other Meds Allergies Allergy/AdvReac Type Severity Reaction Status Date / Time dog dander Allergy Unknown Ithcy Verified 02/10/21 13:01 metformin [METFORMIN] Allergy Unknown LACTIC Verified 02/10/21 13:01 ACIDOSIS nut - unspecified Allergy Unknown hives/throat Verified 02/10/21 13:01 constriction sunflower seeds Allergy Unknown throat Uncoded 12/31/20 17:23 itchiness Active Medications: Current Medications Generic Name Dose Route Start Last Admin Trade Name Freq PRN Reason Stop Dose Admin Acetaminophen 650 mg 05/31/21 15:29 Acetaminophen 325 Mg Tablet PO Q4H PRN Pain, Moderate (Pain Scale 4-6 Atorvastatin Calcium 10 mg 05/30/21 21:00 05/30/21 21:51 Atorvastatin Calcium 10 Mg Tablet PO 10 mg BEDTIME [facility]ION Administration Docusate Sodium 100 mg 05/30/21 00:51 Docusate Sodium 100 Mg Capsule PO DAILY PRN Constipation Enoxaparin Sodium 40 mg 05/30/21 02:00 05/31/21 02:34 Enoxaparin Sodium 40 Mg/0.4 Ml Syringe SUBCUT 40 mg Q24H [facility]ION Administration Piperacillin Sod/Tazobactam 50 mls @ 100 mls/hr 05/30/21 06:00 05/31/21 15:18 Sod 3.375 gm/ Sodium Chloride IV Infused Q8H [facility] Infusion Lactated Ringer's 1,000 mls @ 75 mls/hr 05/30/21 05:45 05/31/21 06:33 Lr IVCONT 75 mls/hr .[id number] [facility]ION Administration Imipramine HCl 10 mg 05/30/21 00:51 05/30/21 21:51 Imipramine Hcl 10 Mg Tablet PO 10 mg BEDTIME [facility]ION Administration Insulin Glargine 60 unit 05/30/21 09:00 05/31/21 08:09 Insulin Glargine,Hum.Rec.Anlog 100 Unit/Ml 10 Ml Vial SUBCUT 60 unit DAILY [facility] Administration Insulin Human Lispro 0 unit 05/30/21 07:30 05/31/21 11:32 Insulin Lispro 100 Unit/Ml 3 Ml Vial SUBCUT 4 unit QIDACHS [facility] Administration Protocol Levothyroxine Sodium 150 mcg 05/30/21 06:30 05/31/21 06:12 Levothyroxine Sodium 150 Mcg Tablet PO 150 mcg DAILY@0630 [facility] Administration Patient Own 4 each 05/31/21 09:00 05/31/21 08:10 Medication - TOPICAL 4 each Testosterone Gel 1. DAILY [facility]ION Administration 62% Omeprazole 20 mg 05/30/21 06:30 05/31/21 06:12 Omeprazole 20 Mg Capsule.Dr PO 20 mg DAILY@0630 [facility] Administration Ondansetron HCl 4 mg 05/30/21 00:51 Ondansetron Hcl 4 Mg/2 Ml Vial IVPUSH Q8H PRN Nausea and Vomiting Oxycodone HCl 5 mg 05/31/21 15:40 05/31/21 15:52 Oxycodone Hcl Immed Release 5 Mg Tablet PO 5 mg Q6H PRN Administration Pain, Severe (Pain Scale 7-10) Pharmacy Consult 1 each 05/30/21 00:51 Consult Rx Vancomycin Dosing MISCELLANE DAILY PRN Consult order Sodium Chloride 3 ml 05/30/21 00:51 05/31/21 15:16 0.9 % Sodium Chloride Flush 3 Ml Syringe IVFLUSH Not Given QSHIFT [facility] Home Medications Medication Instructions Recorded Confirmed Last Taken Type imipramine HCl 1 tab PO BEDTIME 05/29/21 05/29/21 Unknown History insulin glargine [Lantus Solostar 60 unit SUBCUT DAILY 05/29/21 05/29/21 Unknown History U-100 Insulin] levothyroxine 1 tab PO DAILY 05/29/21 05/29/21 Unknown History lisinopril 1 tab PO DAILY 05/29/21 05/29/21 Unknown History omeprazole 1 cap PO DAILY 05/29/21 05/29/21 Unknown History pen needle, diabetic [BD 05/29/21 05/29/21 Unknown History Ultra-Fine Short Pen Needle] pioglitazone 1 tab PO DAILY 05/29/21 05/29/21 Unknown History sildenafil 1 tab PO DAILY PRN 05/29/21 05/29/21 Unknown History simvastatin 1 tab PO BEDTIME 05/29/21 05/29/21 Unknown History testosterone 4 pump TOPICAL DAILY 05/29/21 05/29/21 Unknown History Physical Exam Vital Signs: Last Vital Signs Temp 100.1 F 05/31/21 15:15 Pulse 111 H 05/31/21 15:15 Resp 16 05/31/21 15:15 BP 148/76 H 05/31/21 15:15 Pulse Ox 91 L 05/31/21 15:15 Body Mass Index 37.5 Const Orientation/consciousness: patient oriented x3 HENMT Head: Yes normal to inspection Mouth: Normal oral and palatal mucosa present Eyes General: appearance normal, both eyes and all related structures Sclerae: sclerae normal EOM: EOMs intact bilaterally Resp Effort & Inspection: normal respiratory effort and able to speak in complete sentences Cardio Rate: regular rate Rhythm: regular rhythm GI Palpation (GI): Soft to palpation and nontender Auscultation: normal bowel sounds Skin Other: Warm, dry, no rash General skin exam: no rashes or lesions noted Neuro General: patient oriented x3 Cognition (Neuro): normal cognition Extrem Other: foot ulcer,stable General: Yes normal to inspection Results Lab Results Result Diagrams: 05/31/21 06:05 05/31/21 06:05 Lab results: Chemistry 05/29/21 05/30/21 05/31/21 22:14 05:40 06:05 Sodium 134 L 138 142 Potassium 4.2 3.9 3.7 Carbon Dioxide 23 20 L 19 L BUN 21 H 18 H 21 H Creatinine 1.71 H 1.39 1.91 H Calcium 9.1 8.2 L D 8.1 L Hematology 05/29/21 05/30/21 05/31/21 22:14 05:40 06:05 WBC 14.8 H 13.7 H 16.0 H Hgb 11.3 L 10.7 L 9.4 L Plt Count 217 209 282 D Assessment and Plan (1) Diabetic foot ulcer: Status: Acute (2) ARSH (acute kidney injury): Status: Acute Etiology of ARSH is hopefully simply pre-renal azotemia. We do not have U/A or urine lytes to confirm. He possibly could have cytokine mediated ATN, exacerbated by lisinopril and occasional NSAID use. Otherhwise with his strong history of BPH with at least 4 episodes of nocturia he may be retaining urine leading to ARSH. Plan: - I will order for C3, C4 - U/A - Urine lytes - LR at 125cc/hr - renal panel daily - Doxy/Augmentin safe. (3) BPH (benign prostatic hyperplasia): Status: Acute (4) Type 2 diabetes mellitus with hyperglycemia: Status: Acute Procedures Date of Service Date of Service: 05/31/21
[2021-05-31 16:14] LABS: Glucose, Whole Blood 218 mg/dL (60-115)
[2021-05-31] MEDS: Lactated Ringers 1,000 ML 125 ML IVCONT (18:59)
[2021-05-31 19:13] VITALS: BP 143/78; PULSE 115; RESP 15; TEMP 36.6; O2SAT 92
[2021-05-31 19:22] LABS: Creatinine Urine 143.86 mg/dL; Microalbum/Creatinine Ratio Ur 168.9 ug/mg cr
[2021-05-31 20:39] LABS: Glucose, Whole Blood 180 mg/dL (60-115)
[2021-05-31] MEDS: Imipramine HCl 10 MG TABLET PO (21:13)
[2021-05-31] MEDS: Atorvastatin Calcium 10 MG TABLET PO (21:13)
[2021-05-31 23:34] VITALS: BP 121/65; PULSE 108; RESP 18; TEMP 37.2; O2SAT 96
[2021-06-01] VITALS (8 sets, daily range): BP systolic 114–165; BP diastolic 59–88; PULSE 87–120; RESP 16–21; TEMP 36–37.1; O2SAT 92–93
[2021-06-01] MEDS: Lactated Ringers 1,000 ML 125 ML IVCONT ×3 (03:03→19:57)
[2021-06-01 05:41] LABS: Anion Gap 16 (12-20); Blood Urea Nitrogen 18 mg/dL (9-16); Calcium 8.2 mg/dL (8.4-10.2); Carbon Dioxide 22 mmol/L (22-29); Chloride 109 mmol/L (96-108); Creatinine Clr Calc Pharmacy 62.2; Estimated Glomerular Filt Rate 44; Glucose Random 85 mg/dL (60-115); Potassium 3.7 mmol/L (3.3-5.1); Sodium 143 mmol/L (135-145)
[2021-06-01] MEDS: Omeprazole 20 MG CAPSULE.DR PO (06:13)
[2021-06-01] MEDS: Piperacillin Sodium/Tazobactam 3.375 GM in 0.9 % Sodium Chloride 50 ML IV ×3 (06:13→21:32)
[2021-06-01] MEDS: Levothyroxine Sodium 150 MCG TABLET PO (06:13)
[2021-06-01 07:48] LABS: Glucose, Whole Blood 109 mg/dL (60-115)
--- NOTE | 2021-06-01 08:53 | HO.PM.IMPN ---
Subjective Subjective Date of Service: 06/01/21 Interval History: Seen in f/u for right foot ulcer and cellulitis, doing better, pain is controlled Review of Systems Gen: no fever Resp: no sob, no cough CV: no chest, no ASCENCIO, no leg edema GI: No n/v, no abd pain Neuro: No confusion Physical Exam Vital Signs: Vital Signs: Last Vital Signs Temp 97.2 F 06/01/21 07:24 Pulse 87 06/01/21 07:24 Resp 18 06/01/21 07:24 BP 131/71 06/01/21 07:24 Pulse Ox 93 06/01/21 07:24 Body Mass Index 37.5 Const: Other: General: AO X 3, no acute distress Resp: CTA bilateral CVS: S1,S2,RRR GI: +BS, NT, no distention Skin: erythema around foot is better, see picture from 05/31 Neuro: motor grossly intact Psych: appropriate affect Objective Data Current Medications Generic Name Dose Route Start Last Admin Trade Name Freq PRN Reason Stop Dose Admin Acetaminophen 650 mg 05/31/21 15:29 Acetaminophen 325 Mg Tablet PO Q4H PRN Pain, Moderate (Pain Scale 4-6 Amoxicillin/Clavulanate Potassium 875 mg 06/01/21 09:00 Amoxicillin/Potassium Clav 875 Mg Tablet PO Q12H [facility]ION Atorvastatin Calcium 10 mg 05/30/21 21:00 05/31/21 21:13 Atorvastatin Calcium 10 Mg Tablet PO 10 mg BEDTIME [facility] Administration Docusate Sodium 100 mg 05/30/21 00:51 Docusate Sodium 100 Mg Capsule PO DAILY PRN Constipation Doxycycline Hyclate 100 mg 06/01/21 08:00 Doxycycline Hyclate 100 Mg Tablet PO Q12H [facility] Enoxaparin Sodium 40 mg 05/30/21 02:00 06/01/21 01:45 Enoxaparin Sodium 40 Mg/0.4 Ml Syringe SUBCUT Not Given Q24H [facility] Lactated Ringer's 1,000 mls @ 125 mls/hr 05/30/21 05:45 06/01/21 06:45 Lr IVCONT 125 mls/hr .Q8H [facility] Infusion Imipramine HCl 10 mg 05/30/21 00:51 05/31/21 21:13 Imipramine Hcl 10 Mg Tablet PO 10 mg BEDTIME [facility] Administration Insulin Glargine 60 unit 05/30/21 09:00 05/31/21 08:09 Insulin Glargine,Hum.Rec.Anlog 100 Unit/Ml 10 Ml Vial SUBCUT 60 unit DAILY [facility] Administration Insulin Human Lispro 0 unit 05/30/21 07:30 06/01/21 07:50 Insulin Lispro 100 Unit/Ml 3 Ml Vial SUBCUT Not Given QIDACHS [facility] Protocol Levothyroxine Sodium 150 mcg 05/30/21 06:30 06/01/21 06:13 Levothyroxine Sodium 150 Mcg Tablet PO 150 mcg DAILY@0630 [facility] Administration Patient Own 4 each 05/31/21 09:00 05/31/21 08:10 Medication - TOPICAL 4 each Testosterone Gel 1. DAILY [facility] Administration 62% Omeprazole 20 mg 05/30/21 06:30 06/01/21 06:13 Omeprazole 20 Mg Capsule.Dr PO 20 mg DAILY@0630 [facility] Administration Ondansetron HCl 4 mg 05/30/21 00:51 Ondansetron Hcl 4 Mg/2 Ml Vial IVPUSH Q8H PRN Nausea and Vomiting Oxycodone HCl 5 mg 05/31/21 15:40 05/31/21 15:52 Oxycodone Hcl Immed Release 5 Mg Tablet PO 5 mg Q6H PRN Administration Pain, Severe (Pain Scale 7-10) Pharmacy Consult 1 each 05/30/21 00:51 Consult Rx Vancomycin Dosing MISCELLANE DAILY PRN Consult order Sodium Chloride 3 ml 05/30/21 00:51 05/31/21 23:39 0.9 % Sodium Chloride Flush 3 Ml Syringe IVFLUSH Not Given QSHIFT [facility] Labs CBC & Chem 7: 05/31/21 06:05 06/01/21 04:58 Labs: Laboratory Results - last 24 hr 05/31/21 05/31/21 05/31/21 10:07 11:14 16:10 Sodium Potassium Chloride Carbon Dioxide Anion Gap BUN Creatinine Estim Creat Clear Calc Estimated GFR POC Glucose 204 H 218 H Random Glucose Calcium Ur Random Sodium Urine Creatinine Urine Microalbumin Microalb/Creat Ratio Vancomycin Trough 11.8 05/31/21 05/31/21 05/31/21 18:08 18:08 20:29 Sodium Potassium Chloride Carbon Dioxide Anion Gap BUN Creatinine Estim Creat Clear Calc Estimated GFR POC Glucose 180 H Random Glucose Calcium Ur Random Sodium 38.0 Urine Creatinine 143.86 Urine Microalbumin 243.0 Microalb/Creat Ratio 168.9 Vancomycin Trough 06/01/21 06/01/21 04:58 07:22 Sodium 143 Potassium 3.7 Chloride 109 H Carbon Dioxide 22 Anion Gap 16 BUN 18 H Creatinine 1.67 H Estim Creat Clear Calc 62.2 Estimated GFR 44 POC Glucose 109 Random Glucose 85 D Calcium 8.2 L Ur Random Sodium Urine Creatinine Urine Microalbumin Microalb/Creat Ratio Vancomycin Trough Microbiology Microbiology Results: Microbiology 05/29/21 22:14 Blood Culture - Preliminary Blood - Venous No growth after 48 hours. 05/29/21 22:14 Blood Culture - Preliminary Blood - Venous No growth after 48 hours. 05/29/21 22:45 Urine Culture - Final Urine clean catch - Clean Catch Midstream No growth. Quality Stroke Does the patient have a stroke diagnosis?: No VTE Prior VTE?: No VTE Risk Level:: Medical - moderate - high VTE Device Contraindication: Treatment Not Indicated VTE Drug Contraindication: N/A - Med Ordered Assessment and Plan (1) Diabetic foot ulcer: Status: Acute (2) Cellulitis and abscess of toe of right foot: Status: Acute (3) Cellulitis of foot, right: Status: Acute (4) ARSH (acute kidney injury): Status: Acute (5) Sepsis: Status: Acute (6) Hypertension: Status: Acute (7) Type 2 diabetes mellitus with hyperglycemia: Status: Acute Assessment and Plan: # Sepsis secondary cellulitis due diabetic foot ulcer--Xray and MRI showed no evidence of Osteomylitis or necrotizing fascitis. Air seen on MRI was from open wound. Patient had bed side debridment by Dr. Davis and was followed by Dr. Tirado subsequently without need for further debridment. Blood cultures and wound cultures have been negaive. He was initially treated with Zosyn and Vancomycin. However Vancomycin was discontinued on second day due rising in serum creatinine. He was seen by infectious disease Dr. Hinton and given no osteomylitis and cultures been negative was recommended to transition to oral Augmentin and Doxycyline. He should follow up with surgery clinic and advised to return if worsening. Sepsis. No Osteomylitis by MRI. Air seen is tracking from open, no necrotizing fascitis. Blood cultures so far negative. Continue broad spec ABx with Zosyn and Vanco and reassess. I and Surgery following, no indication for further debridment at this time. # ARSH--from pre renal azotemia, he likely has CKD 2. His last know normal Creatinine was 0.91 in February of 2020. He presented with Creatine of 1.71 on 05/29 and went down to 1.39 the following day 05/30 and only to go up again to 1.91 on 05/31 at which point Vancomycin was discontinued and was given IVF per nephrology advised and today 7.4 Creatine is down to 1.67. He is to avoid nephrotoxins and to have repeat labs within a week and to follow up with nephology clinic. #Diabetes mellitus with hyperglycemia--to continue insulin and oral agents at home # hypothyroidism - continue levothyroxine # HLD - continue statin # HTN--Lisinipril discontinued due to renal failure, and relatively low BP. No adding Norvasc for optimal BP control Dispo: home today if no further indication to stay in hospital for renal related issues.
[2021-06-01 08:54] LABS: Glucose, Whole Blood 151 mg/dL (60-115)
[2021-06-01] MEDS: Insulin Glargine,Hum.rec.anlog 100 UNIT/ML 10 ML VIAL 60 UNIT SUBCUT (08:59)
[2021-06-01] MEDS: amLODIPine Besylate 5 MG TABLET PO ×2 (09:01→16:37)
[2021-06-01 09:02] LABS: Hematocrit 28.8 % (42-52); Hemoglobin 9.2 g/dl (14.0-18.0); Mean Corpuscular HGB Conc 31.9 g/dl (31.0-36.0); Mean Corpuscular Hemoglobin 27.6 pg (27.0-33.0); Mean Corpuscular Volume 86.5 fL (80-98); Mean Platelet Volume 11.5 fL (9.4-12.4); Platelet Count 281 X10*3/uL (160-400); Red Blood Count 3.33 X10*6/uL (4.60-5.80); Red Cell Distribution Width 14.4 % (11.0-16.0); White Blood Count 15.3 X10*3/uL (4.8-10.8)
[2021-06-01] MEDS: oxyCODONE HCl Immed Release 5 MG TABLET PO (09:14)
--- NOTE | 2021-06-01 09:56 | P.PNGS_ITS ---
Subjective Subjective Date of Service: 06/01/21 Interval history: no events reported patient denies new complaints some pain on the right foot blood sugars seem to be better controlled Physical Exam Vital Signs: Vital Signs: Last Vital Signs Temp 97.2 F 06/01/21 07:24 Pulse 87 06/01/21 09:01 Resp 18 06/01/21 07:24 BP 131/71 06/01/21 09:01 Pulse Ox 93 06/01/21 07:24 Body Mass Index 37.5 Const: General: comfortable and no acute distress Resp: Effort & Inspection: normal respiratory effort Cardio: Rate: regular rate GI: Palpation (GI): Soft to palpation and nontender Extrem: Other: right foot with note of bullae on the dorsum with an ulcer on the interdigital space the 1st and 2nd toes; note of necrotic tissue with drainage in this area Progress Note: A&P Assessment and plan (1) Diabetic foot ulcer: Status: Acute Assessment and Plan: there is note of bolus formation as well as nonviable, necrotic tissue on the dorsum and the interdigital space at the 1st and 2nd toes I proceeded to do sharp excisional debridement using fine scissors to removed nonviable full-thickness of skin and subcutaneous tissue the open wound was about 1.5 cm wide to about 5 cm long cultures of this were taken I applied wet to dry packing on the area and wrapped the foot with German roll elevate foot IV antibiotics wound care will re-evaluate wound tomorrow Fall Risk Details Current Medications: Current Medications Generic Name Dose Route Start Last Admin Trade Name Freq PRN Reason Stop Dose Admin Acetaminophen 650 mg 05/31/21 15:29 Acetaminophen 325 Mg Tablet PO Q4H PRN Pain, Moderate (Pain Scale 4-6 Amlodipine Besylate 5 mg 06/01/21 09:00 06/01/21 09:01 Amlodipine Besylate 5 Mg Tablet PO 5 mg DAILY [facility] Administration Protocol Atorvastatin Calcium 10 mg 05/30/21 21:00 05/31/21 21:13 Atorvastatin Calcium 10 Mg Tablet PO 10 mg BEDTIME [facility] Administration Docusate Sodium 100 mg 05/30/21 00:51 Docusate Sodium 100 Mg Capsule PO DAILY PRN Constipation Enoxaparin Sodium 40 mg 05/30/21 02:00 06/01/21 01:45 Enoxaparin Sodium 40 Mg/0.4 Ml Syringe SUBCUT Not Given Q24H [facility]ION Piperacillin Sod/Tazobactam 50 mls @ 100 mls/hr 05/30/21 06:00 06/01/21 06:45 Sod 3.375 gm/ Sodium Chloride IV Infused Q8H [facility] Infusion Lactated Ringer's 1,000 mls @ 125 mls/hr 05/30/21 05:45 06/01/21 06:45 Lr IVCONT 125 mls/hr .Q8H [facility]ION Infusion Doxycycline Hyclate 100 mg/ 250 mls @ 166.67 mls/hr 06/01/21 20:00 Sodium Chloride IV Q12H [facility] Imipramine HCl 10 mg 05/30/21 00:51 05/31/21 21:13 Imipramine Hcl 10 Mg Tablet PO 10 mg BEDTIME [facility] Administration Insulin Glargine 60 unit 05/30/21 09:00 06/01/21 08:59 Insulin Glargine,Hum.Rec.Anlog 100 Unit/Ml 10 Ml Vial SUBCUT 60 unit DAILY [facility] Administration Insulin Human Lispro 0 unit 05/30/21 07:30 06/01/21 07:50 Insulin Lispro 100 Unit/Ml 3 Ml Vial SUBCUT Not Given QIDACHS [facility] Protocol Levothyroxine Sodium 150 mcg 05/30/21 06:30 06/01/21 06:13 Levothyroxine Sodium 150 Mcg Tablet PO 150 mcg DAILY@0630 [facility] Administration Patient Own 4 each 05/31/21 09:00 05/31/21 08:10 Medication - TOPICAL 4 each Testosterone Gel 1. DAILY [facility]ION Administration 62% Omeprazole 20 mg 05/30/21 06:30 06/01/21 06:13 Omeprazole 20 Mg Capsule. PO 20 mg DAILY@0630 [facility] Administration Ondansetron HCl 4 mg 05/30/21 00:51 Ondansetron Hcl 4 Mg/2 Ml Vial IVPUSH Q8H PRN Nausea and Vomiting Oxycodone HCl 5 mg 05/31/21 15:40 06/01/21 09:14 Oxycodone Hcl Immed Release 5 Mg Tablet PO 5 mg Q6H PRN Administration Pain, Severe (Pain Scale 7-10) Pharmacy Consult 1 each 05/30/21 00:51 Consult Rx Vancomycin Dosing MISCELLANE DAILY PRN Consult order Sodium Chloride 3 ml 05/30/21 00:51 06/01/21 09:01 0.9 % Sodium Chloride Flush 3 Ml Syringe IVFLUSH Not Given QSHIFT ZION Time Spent With Patient Time: Total time spent is greater than 50% in coordination of care (as documented) at patient's floor/unit and/or counseling patient: Time with patient: 25 - 35 minutes Procedures Date of Service Date of Service: 06/01/21 Quality Stroke Does the patient have a stroke diagnosis?: No VTE Prior VTE?: No VTE Risk Level:: Medical - moderate - high VTE Device Contraindication: Treatment Not Indicated VTE Drug Contraindication: N/A - Med Ordered
[2021-06-01 11:58] LABS: Glucose, Whole Blood 169 mg/dL (60-115)
[2021-06-01] MEDS: Insulin Lispro 100 UNIT/ML 3 ML VIAL SUBCUT ×2 (12:04→16:23)
--- NOTE | 2021-06-01 13:53 | MHC.CM.PN ---
PER REVIEW OF NOTES, SURGEON WILL RE-EVALUATE TOMORROW (06/02/2021) POSSIBLE DC HOME AT THAT TIME [facility] UPDATED IN [facility]
[2021-06-01 15:54] LABS: Glucose, Whole Blood 200 mg/dL (60-115)
--- NOTE | 2021-06-01 16:13 | P.PNNP_ITS ---
Subjective Subjective Date of Service: 06/01/21 Interval history: no complaints Cr improving pre renal overall Physical Exam Vital Signs: Vital Signs: Last Vital Signs Temp 98.8 F 06/01/21 15:18 Pulse 111 H 06/01/21 15:18 Resp 16 06/01/21 15:18 BP 165/79 H 06/01/21 15:18 Pulse Ox 92 06/01/21 15:18 Body Mass Index 37.5 Const: Orientation/consciousness: patient oriented x3 HENMT: Head: Yes normal to inspection Mouth: Normal oral and palatal mucosa present Eyes: General: appearance normal, both eyes and all related structures Sclerae: sclerae normal EOM: EOMs intact bilaterally Resp: Effort & Inspection: normal respiratory effort and able to speak in complete sentences Cardio: Rate: regular rate Rhythm: regular rhythm GI: Palpation (GI): Soft to palpation and nontender Auscultation: normal bowel sounds Neuro: General: patient oriented x3 Objective Data Labs CBC & Chem 7: 06/01/21 04:58 06/01/21 04:58 Labs: Laboratory Results - last 24 hr 05/31/21 05/31/21 05/31/21 16:10 18:08 18:08 WBC RBC Hgb Hct MCV MCH MCHC RDW Plt Count MPV Absolute Nucleated RBC Nucleated RBC % (auto) Sodium Potassium Chloride Carbon Dioxide Anion Gap BUN Creatinine Estim Creat Clear Calc Estimated GFR POC Glucose 218 H Random Glucose Calcium Ur Random Sodium 38.0 Urine Creatinine 143.86 Urine Microalbumin 243.0 Microalb/Creat Ratio 168.9 05/31/21 06/01/21 06/01/21 20:29 04:58 04:58 WBC 15.3 H RBC 3.33 L Hgb 9.2 L Hct 28.8 L MCV 86.5 MCH 27.6 MCHC 31.9 RDW 14.4 Plt Count 281 MPV 11.5 Absolute Nucleated RBC 0.000 Nucleated RBC % (auto) 0.0 Sodium 143 Potassium 3.7 Chloride 109 H Carbon Dioxide 22 Anion Gap 16 BUN 18 H Creatinine 1.67 H Estim Creat Clear Calc 62.2 Estimated GFR 44 POC Glucose 180 H Random Glucose 85 D Calcium 8.2 L Ur Random Sodium Urine Creatinine Urine Microalbumin Microalb/Creat Ratio 06/01/21 06/01/21 06/01/21 07:22 08:50 11:42 WBC RBC Hgb Hct MCV MCH MCHC RDW Plt Count MPV Absolute Nucleated RBC Nucleated RBC % (auto) Sodium Potassium Chloride Carbon Dioxide Anion Gap BUN Creatinine Estim Creat Clear Calc Estimated GFR POC Glucose 109 151 H 169 H Random Glucose Calcium Ur Random Sodium Urine Creatinine Urine Microalbumin Microalb/Creat Ratio 06/01/21 15:44 WBC RBC Hgb Hct MCV MCH MCHC RDW Plt Count MPV Absolute Nucleated RBC Nucleated RBC % (auto) Sodium Potassium Chloride Carbon Dioxide Anion Gap BUN Creatinine Estim Creat Clear Calc Estimated GFR POC Glucose 200 H Random Glucose Calcium Ur Random Sodium Urine Creatinine Urine Microalbumin Microalb/Creat Ratio Microbiology Microbiology Results: Microbiology 06/01/21 10:12 Foot - Right Big Gram Stain - Final 05/29/21 22:14 Blood - Venous Blood Culture - Preliminary No growth after 48 hours. 05/29/21 22:14 Blood - Venous Blood Culture - Preliminary No growth after 48 hours. 05/29/21 22:45 Urine clean catch - Clean Catch Midstream Urine Culture - Final No growth. Assessment & Plan Assessment and plan (1) Diabetic foot ulcer: Status: Acute (2) ARSH (acute kidney injury): Status: Acute Assessment and Plan: Etiology of ARSH is most c/w pre-renal azotemia. The U/A and urine lytes were c/w pre-renal disease. He is improving so far with isotonic volume support. Plan: - LR at 125cc/hr - renal panel daily - Doxy/Augmentin safe. - monitor bladder scans given his BPH history (3) BPH (benign prostatic hyperplasia): Status: Acute (4) Type 2 diabetes mellitus with hyperglycemia: Status: Acute Time Spent With Patient Time: Total time spent is greater than 50% in coordination of care (as documente d) at patient's floor/unit and/or counseling patient: Procedures Date of Service Date of Service: 06/01/21 Progress Note: Quality Stroke Does the patient have a stroke diagnosis?: No
[2021-06-01] MEDS: Doxycycline Hyclate 100 MG in 0.9 % Sodium Chloride 250 ML 166.67 MG IV (19:52)
[2021-06-01 20:18] LABS: Glucose, Whole Blood 148 mg/dL (60-115)
[2021-06-01] MEDS: Atorvastatin Calcium 10 MG TABLET PO (20:58)
[2021-06-01] MEDS: Imipramine HCl 10 MG TABLET PO (20:58)
[2021-06-02] VITALS (7 sets, daily range): BP systolic 115–153; BP diastolic 55–91; PULSE 97–116; RESP 16–20; TEMP 36–37.4; O2SAT 90–93
[2021-06-02] MEDS: Piperacillin Sodium/Tazobactam 3.375 GM in 0.9 % Sodium Chloride 50 ML IV ×3 (06:06→22:00)
[2021-06-02] MEDS: Omeprazole 20 MG CAPSULE.DR PO (06:06)
[2021-06-02] MEDS: Levothyroxine Sodium 150 MCG TABLET PO (06:06)
[2021-06-02] MEDS: Lactated Ringers 1,000 ML 125 ML IVCONT ×3 (06:06→23:34)
[2021-06-02 07:14] LABS: Anion Gap 16 (12-20); Blood Urea Nitrogen 14 mg/dL (9-16); Calcium 8.4 mg/dL (8.4-10.2); Carbon Dioxide 21 mmol/L (22-29); Chloride 110 mmol/L (96-108); Creatinine Clr Calc Pharmacy 74.2; Estimated Glomerular Filt Rate 54; Glucose Random 83 mg/dL (60-115); Potassium 3.7 mmol/L (3.3-5.1); Sodium 143 mmol/L (135-145)
[2021-06-02 07:36] LABS: Glucose, Whole Blood 90 mg/dL (60-115)
[2021-06-02] MEDS: Doxycycline Hyclate 100 MG in 0.9 % Sodium Chloride 250 ML 166.67 MG IV ×2 (07:47→20:24)
[2021-06-02] MEDS: 0.9 % Sodium Chloride Flush 3 ML SYRINGE IVFLUSH (07:47)
[2021-06-02] MEDS: amLODIPine Besylate 5 MG TABLET 10 MG PO (07:47)
--- NOTE | 2021-06-02 09:03 | P.PNIM_ITS ---
Subjective Subjective Date of Service: 06/02/21 Interval History: Seen in f/u for Cellulitis, diabetic foot ulcer, and ARSH. Doing well with no new domplaint/ Review of Systems Gen: no fever Resp: no sob, no cough CV: no chest, no ASCENCIO, no leg edema GI: No n/v, no abd pain Neuro: No confusion no pain in th foot Physical Exam Vital Signs: Vital Signs: Last Vital Signs Temp 96.8 F 06/02/21 07:20 Pulse 104 H 06/02/21 07:47 Resp 18 06/02/21 07:20 BP 153/91 H 06/02/21 07:47 Pulse Ox 91 L 06/02/21 07:20 Body Mass Index 37.5 Const: Other: General: AO X 3, no acute distress Resp: CTA bilateral CVS: S1,S2,RRR GI: +BS, NT, no distention Skin: right foot wound dressing in place, dressing changed earlier by Dr. Tirado --refer to his finding Neuro: motor grossly intact Psych: appropriate affect Objective Data Current Medications Generic Name Dose Route Start Last Admin Trade Name Freq PRN Reason Stop Dose Admin Acetaminophen 650 mg 05/31/21 15:29 Acetaminophen 325 Mg Tablet PO Q4H PRN Pain, Moderate (Pain Scale 4-6 Amlodipine Besylate 10 mg 06/02/21 09:00 06/02/21 07:47 Amlodipine Besylate 5 Mg Tablet PO 10 mg DAILY [facility] Administration Protocol Atorvastatin Calcium 10 mg 05/30/21 21:00 06/01/21 20:58 Atorvastatin Calcium 10 Mg Tablet PO 10 mg BEDTIME [facility]ION Administration Docusate Sodium 100 mg 05/30/21 00:51 Docusate Sodium 100 Mg Capsule PO DAILY PRN Constipation Enoxaparin Sodium 40 mg 05/30/21 02:00 06/02/21 01:49 Enoxaparin Sodium 40 Mg/0.4 Ml Syringe SUBCUT Not Given Q24H [facility]ION Piperacillin Sod/Tazobactam 50 mls @ 100 mls/hr 05/30/21 06:00 06/02/21 06:39 Sod 3.375 gm/ Sodium Chloride IV Infused Q8H [facility] Infusion Lactated Ringer's 1,000 mls @ 125 mls/hr 05/30/21 05:45 06/02/21 06:06 Lr IVCONT 125 mls/hr .Q8H [facility] Administration Doxycycline Hyclate 100 mg/ 250 mls @ 166.67 mls/hr 06/01/21 20:00 06/02/21 07:47 Sodium Chloride IV 166.67 mls/hr Q12H [facility] Administration Imipramine HCl 10 mg 05/30/21 00:51 06/01/21 20:58 Imipramine Hcl 10 Mg Tablet PO 10 mg BEDTIME [facility] Administration Insulin Glargine 60 unit 05/30/21 09:00 06/01/21 08:59 Insulin Glargine,Hum.Rec.Anlog 100 Unit/Ml 10 Ml Vial SUBCUT 60 unit DAILY [facility] Administration Insulin Human Lispro 0 unit 05/30/21 07:30 06/02/21 07:37 Insulin Lispro 100 Unit/Ml 3 Ml Vial SUBCUT Not Given QIDACHS [facility] Protocol Levothyroxine Sodium 150 mcg 05/30/21 06:30 06/02/21 06:06 Levothyroxine Sodium 150 Mcg Tablet PO 150 mcg DAILY@0630 [facility] Administration Patient Own 4 each 05/31/21 09:00 06/02/21 07:48 Medication - TOPICAL Not Given Testosterone Gel 1. DAILY [facility] 62% Omeprazole 20 mg 05/30/21 06:30 06/02/21 06:06 Omeprazole 20 Mg Capsule. PO 20 mg DAILY@0630 [facility] Administration Ondansetron HCl 4 mg 05/30/21 00:51 Ondansetron Hcl 4 Mg/2 Ml Vial IVPUSH Q8H PRN Nausea and Vomiting Oxycodone HCl 5 mg 05/31/21 15:40 06/01/21 09:14 Oxycodone Hcl Immed Release 5 Mg Tablet PO 5 mg Q6H PRN Administration Pain, Severe (Pain Scale 7-10) Pharmacy Consult 1 each 05/30/21 00:51 Consult Rx Vancomycin Dosing MISCELLANE DAILY PRN Consult order Sodium Chloride 3 ml 05/30/21 00:51 06/02/21 07:47 0.9 % Sodium Chloride Flush 3 Ml Syringe IVFLUSH 3 ml QSHIFT [facility] Administration Labs CBC & Chem 7: 06/01/21 04:58 06/02/21 06:18 Labs: Laboratory Results - last 24 hr 06/01/21 06/01/21 06/01/21 04:58 11:42 15:44 WBC 15.3 H RBC 3.33 L Hgb 9.2 L Hct 28.8 L MCV 86.5 MCH 27.6 MCHC 31.9 RDW 14.4 Plt Count 281 MPV 11.5 Absolute Nucleated RBC 0.000 Nucleated RBC % (auto) 0.0 Sodium Potassium Chloride Carbon Dioxide Anion Gap BUN Creatinine Estim Creat Clear Calc Estimated GFR POC Glucose 169 H 200 H Random Glucose Calcium 06/01/21 06/02/21 06/02/21 20:04 06:18 07:19 WBC RBC Hgb Hct MCV MCH MCHC RDW Plt Count MPV Absolute Nucleated RBC Nucleated RBC % (auto) Sodium 143 Potassium 3.7 Chloride 110 H Carbon Dioxide 21 L Anion Gap 16 BUN 14 Creatinine 1.40 Estim Creat Clear Calc 74.2 Estimated GFR 54 POC Glucose 148 H 90 Random Glucose 83 Calcium 8.4 Microbiology Microbiology Results: Microbiology 06/01/21 10:12 Gram Stain - Final Foot - Right Big Routine Culture - Final Strep agalactiae (Grp B) Quality Stroke Does the patient have a stroke diagnosis?: No VTE Prior VTE?: No VTE Risk Level:: Medical - moderate - high VTE Device Contraindication: Treatment Not Indicated VTE Drug Contraindication: N/A - Med Ordered Assessment and Plan (1) Diabetic foot ulcer: Status: Acute (2) Cellulitis and abscess of toe of right foot: Status: Acute (3) Cellulitis of foot, right: Status: Acute (4) ARSH (acute kidney injury): Status: Acute (5) Sepsis: Status: Acute (6) Hypertension: Status: Acute (7) Type 2 diabetes mellitus with hyperglycemia: Status: Acute Assessment and Plan: # Sepsis secondary cellulitis due diabetic foot ulcer--Xray and MRI showed no evidence of Osteomylitis or necrotizing fascitis. Air seen on MRI was from open wound. Patient had bed side debridment by Dr. Davis and was followed by Dr. Tirado subsequently without need for further debridment. Blood cultures and wound cultures have been negaive. He was initially treated with Zosyn and Vancomycin. However Vancomycin was discontinued on second day due rising in serum creatinine. He was seen by infectious disease Dr. Hinton and given no osteomylitis and cultures been negative was recommended to transition to oral Augmentin and Doxycyline. He should follow up with surgery clinic and advised to return if worsening. Sepsis. No Osteomylitis by MRI. Air seen is tracking from open, no necrotizing fascitis. Blood cultures so far negative. Continue broad spec ABx with Zosyn and Vanco and reassess. ID and Surgery following, no indication for further debridment at this time. # ARSH--from pre renal azotemia, he likely has CKD 2. His last know normal Creatinine was 0.91 in February of 2020. He presented with Creatine of 1.71 on 05/29 and went down to 1.39 the following day 05/30 and only to go up again to 1.91 on 05/31 at which point Vancomycin was discontinued and was given IVF per nephrology advised and today 06/02 Creatine is down to 1.4. He is to avoid nephrotoxins, to follow up with Nephrology on outpatient basis #Diabetes mellitus with hyperglycemia--to continue insulin and oral agents at home, Fasting sugar 90 today # hypothyroidism - continue levothyroxine # HLD - continue statin # HTN--Lisinipril discontinued due to renal failure, and relatively low BP. No adding Norvasc for optimal BP control Dispo: home today if no further indication to stay in hospital for wound related issues, I will check with Dr. Tirado
[2021-06-02 09:16] LABS: Glucose, Whole Blood 131 mg/dL (60-115)
[2021-06-02] MEDS: Insulin Glargine,Hum.rec.anlog 100 UNIT/ML 10 ML VIAL 60 UNIT SUBCUT (09:18)
--- NOTE | 2021-06-02 09:47 | PM.PNGS ---
Subjective Subjective Date of Service: 06/02/21 Interval history: denies new complaints feels well some pain on right foot Physical Exam Vital Signs: Vital Signs: Last Vital Signs Temp 96.8 F 06/02/21 07:20 Pulse 104 H 06/02/21 07:47 Resp 18 06/02/21 07:20 BP 153/91 H 06/02/21 07:47 Pulse Ox 91 L 06/02/21 07:20 Body Mass Index 37.5 Const: General: comfortable and no acute distress Resp: Effort & Inspection: normal respiratory effort Cardio: Rhythm: regular rhythm Extrem: Other: open wound, right foot from debridement yesterday looks much pigs feet cleaner, with viable tissue some drainage Progress Note: A&P Assessment and plan (1) Diabetic foot ulcer: Status: Acute Assessment and Plan: sharp exciision debrided done yesterday at bedside for nonviable necrotic tissue dressings change - open wound looks much better wet to dry applied foot wrapped in Kerlix some cellulitic changes on foot - would recommend one more day of IV abx blood sugar control Fall Risk Details Current Medications: Current Medications Generic Name Dose Route Start Last Admin Trade Name Freq PRN Reason Stop Dose Admin Acetaminophen 650 mg 05/31/21 15:29 Acetaminophen 325 Mg Tablet PO Q4H PRN Pain, Moderate (Pain Scale 4-6 Amlodipine Besylate 10 mg 06/02/21 09:00 06/02/21 07:47 Amlodipine Besylate 5 Mg Tablet PO 10 mg DAILY [facility] Administration Protocol Atorvastatin Calcium 10 mg 05/30/21 21:00 06/01/21 20:58 Atorvastatin Calcium 10 Mg Tablet PO 10 mg BEDTIME [facility] Administration Docusate Sodium 100 mg 05/30/21 00:51 Docusate Sodium 100 Mg Capsule PO DAILY PRN Constipation Enoxaparin Sodium 40 mg 05/30/21 02:00 06/02/21 01:49 Enoxaparin Sodium 40 Mg/0.4 Ml Syringe SUBCUT Not Given Q24H [facility]OIN Piperacillin Sod/Tazobactam 50 mls @ 100 mls/hr 05/30/21 06:00 06/02/21 06:39 Sod 3.375 gm/ Sodium Chloride IV Infused Q8H [facility] Infusion Lactated Ringer's 1,000 mls @ 125 mls/hr 05/30/21 05:45 06/02/21 06:06 Lr IVCONT 125 mls/hr .Q8H [facility] Administration Doxycycline Hyclate 100 mg/ 250 mls @ 166.67 mls/hr 06/01/21 20:00 06/02/21 09:19 Sodium Chloride IV Infused Q12H [facility] Infusion Imipramine HCl 10 mg 05/30/21 00:51 06/01/21 20:58 Imipramine Hcl 10 Mg Tablet PO 10 mg BEDTIME [facility] Administration Insulin Glargine 60 unit 05/30/21 09:00 06/02/21 09:18 Insulin Glargine,Hum.Rec.Anlog 100 Unit/Ml 10 Ml Vial SUBCUT 60 unit DAILY [facility] Administration Insulin Human Lispro 0 unit 05/30/21 07:30 06/02/21 07:37 Insulin Lispro 100 Unit/Ml 3 Ml Vial SUBCUT Not Given QIDACHS [facility] Protocol Levothyroxine Sodium 150 mcg 05/30/21 06:30 06/02/21 06:06 Levothyroxine Sodium 150 Mcg Tablet PO 150 mcg DAILY@0630 [facility] Administration Patient Own 4 each 05/31/21 09:00 06/02/21 07:48 Medication - TOPICAL Not Given Testosterone Gel 1. DAILY [facility] 62% Omeprazole 20 mg 05/30/21 06:30 06/02/21 06:06 Omeprazole 20 Mg Capsule. PO 20 mg DAILY@0630 [facility] Administration Ondansetron HCl 4 mg 05/30/21 00:51 Ondansetron Hcl 4 Mg/2 Ml Vial IVPUSH Q8H PRN Nausea and Vomiting Oxycodone HCl 5 mg 05/31/21 15:40 06/01/21 09:14 Oxycodone Hcl Immed Release 5 Mg Tablet PO 5 mg Q6H PRN Administration Pain, Severe (Pain Scale 7-10) Pharmacy Consult 1 each 05/30/21 00:51 Consult Rx Vancomycin Dosing MISCELLANE DAILY PRN Consult order Sodium Chloride 3 ml 05/30/21 00:51 06/02/21 07:47 0.9 % Sodium Chloride Flush 3 Ml Syringe IVFLUSH 3 ml QSHIFT [facility] Administration Time Spent With Patient Time: Total time spent is greater than 50% in coordination of care (as documented) at patient's floor/unit and/or counseling patient: Time with patient: 15 - 24 minutes No Severe Sepsis: No Severe Sepsis Procedures Date of Service Date of Service: 06/02/21 Quality Stroke Does the patient have a stroke diagnosis?: No VTE Prior VTE?: No VTE Risk Level:: Medical - moderate - high VTE Device Contraindication: Treatment Not Indicated VTE Drug Contraindication: N/A - Med Ordered
[2021-06-02 11:53] LABS: Glucose, Whole Blood 132 mg/dL (60-115)
[2021-06-02] MEDS: oxyCODONE HCl Immed Release 5 MG TABLET PO (11:59)
--- NOTE | 2021-06-02 15:26 | MHC.CM.PN ---
PER REVIEW OF REPORTS, ONE MORE DAY OF IV ANTIBIOTICS AND ANTICIPATE DC TOMORROW (06/03/21) JESSICA MADE AWARE.
[2021-06-02 16:21] LABS: Glucose, Whole Blood 161 mg/dL (60-115)
[2021-06-02] MEDS: Insulin Lispro 100 UNIT/ML 3 ML VIAL SUBCUT (16:26)
--- NOTE | 2021-06-02 16:40 | PM.PNNEP ---
Subjective Subjective Date of Service: 06/02/21 Interval history: no acute events Cr normalizing Physical Exam Vital Signs: Vital Signs: Last Vital Signs Temp 99.3 F 06/02/21 15:16 Pulse 108 H 06/02/21 15:16 Resp 18 06/02/21 15:16 BP 144/79 H 06/02/21 15:16 Pulse Ox 91 L 06/02/21 15:16 Body Mass Index 37.5 Const: Orientation/consciousness: patient oriented x3 HENMT: Head: Yes normal to inspection Mouth: Normal oral and palatal mucosa present Eyes: General: appearance normal, both eyes and all related structures Sclerae: sclerae normal EOM: EOMs intact bilaterally Resp: Effort & Inspection: normal respiratory effort and able to speak in complete sentences Cardio: Rate: regular rate Rhythm: regular rhythm GI: Palpation (GI): Soft to palpation and nontender Auscultation: normal bowel sounds Skin: Other: Warm, dry, no rash General skin exam: no rashes or lesions noted Neuro: General: patient oriented x3 Cognition (Neuro): normal cognition Extrem: Other: foot ulcer,stable General: Yes normal to inspection Objective Data Labs CBC & Chem 7: 06/01/21 04:58 06/02/21 06:18 Labs: Laboratory Results - last 24 hr 06/01/21 06/02/21 06/02/21 20:04 06:18 07:19 Sodium 143 Potassium 3.7 Chloride 110 H Carbon Dioxide 21 L Anion Gap 16 BUN 14 Creatinine 1.40 Estim Creat Clear Calc 74.2 Estimated GFR 54 POC Glucose 148 H 90 Random Glucose 83 Calcium 8.4 06/02/21 06/02/21 06/02/21 09:11 11:40 16:06 Sodium Potassium Chloride Carbon Dioxide Anion Gap BUN Creatinine Estim Creat Clear Calc Estimated GFR POC Glucose 131 H 132 H 161 H Random Glucose Calcium Microbiology Microbiology Results: Microbiology 06/01/21 10:12 Foot - Right Big Gram Stain - Final 06/01/21 10:12 Foot - Right Big Routine Culture - Final Strep agalactiae (Grp B) 05/29/21 22:14 Blood - Venous Blood Culture - Preliminary No growth after 48 hours. 05/29/21 22:14 Blood - Venous Blood Culture - Preliminary No growth after 48 hours. 05/29/21 22:45 Urine clean catch - Clean Catch Midstream Urine Culture - Final No growth. Assessment & Plan Assessment and plan (1) Diabetic foot ulcer: Status: Acute (2) ARSH (acute kidney injury): Status: Acute Assessment and Plan: Etiology of ARSH is most c/w pre-renal azotemia. The U/A and urine lytes were c/w pre-renal disease. He is improving so far with isotonic volume support. Plan: - OK to stop LR - encourage PO - renal panel daily - Doxy/Augmentin safe. - monitor bladder scans given his BPH history (3) BPH (benign prostatic hyperplasia): Status: Acute (4) Type 2 diabetes mellitus with hyperglycemia: Status: Acute Time Spent With Patient Time: Total time spent is greater than 50% in coordination of care (as documented) at patient's floor/unit and/or counseling patient: Procedures Date of Service Date of Service: 06/02/21 Progress Note: Quality Stroke Does the patient have a stroke diagnosis?: No
[2021-06-02 20:17] LABS: Glucose, Whole Blood 137 mg/dL (60-115)
[2021-06-02] MEDS: Imipramine HCl 10 MG TABLET PO (20:24)
[2021-06-02] MEDS: Atorvastatin Calcium 10 MG TABLET PO (20:24)
[2021-06-03 03:56] VITALS: BP 155/70; PULSE 100; RESP 18; TEMP 36.4; O2SAT 92
[2021-06-03] MEDS: Piperacillin Sodium/Tazobactam 3.375 GM in 0.9 % Sodium Chloride 50 ML IV (05:28)
[2021-06-03] MEDS: Omeprazole 20 MG CAPSULE.DR PO (05:29)
[2021-06-03] MEDS: Levothyroxine Sodium 150 MCG TABLET PO (05:29)
[2021-06-03] MEDS: Doxycycline Hyclate 100 MG in 0.9 % Sodium Chloride 250 ML 166.67 MG IV (07:20)
[2021-06-03] MEDS: Lactated Ringers 1,000 ML 125 ML IVCONT (07:22)
[2021-06-03 07:38] LABS: Glucose, Whole Blood 65 mg/dL (60-115)
[2021-06-03 08:00] VITALS: BP 160/88; PULSE 113; RESP 18; TEMP 36.3; O2SAT 95
--- NOTE | 2021-06-03 08:37 | PM.DS ---
DS: Providers Provider Date of Service: 06/03/21 Date of admission: 05/29/21 23:54 Primary care physician: Miroslava Landry MD Consults: 05/30/21 00:51 Consult to General Surgery Routine Consulting Provider: Smith Bowser Reason for consultation: diabetic foot ulcer, likely osteo Has provider been notified: No Consult to Infectious Diseases Routine Consulting Provider: Lindy Salmeron Reason for consultation: osteomyelitis? Has provider been notified: No 05/31/21 09:55 Consult to Nephrology Routine Consulting Provider: Jcarlos Arellano Reason for consultation: ARSH Has provider been notified: No DS: Diagnosis Discharge Diagnosis (1) Diabetic foot ulcer: Status: Acute (2) ARSH (acute kidney injury): Status: Resolved (3) BPH (benign prostatic hyperplasia): (4) Type 2 diabetes mellitus with hyperglycemia: Status: Inactive DS: Medications Discharge Medications Home Medications: Home Medications Medication Instructions Recorded Confirmed imipramine HCl 1 tab PO BEDTIME 05/29/21 05/29/21 insulin glargine [Lantus Solostar 60 unit SUBCUT DAILY 05/29/21 05/29/21 U-100 Insulin] levothyroxine 1 tab PO DAILY 05/29/21 05/29/21 lisinopril 1 tab PO DAILY 05/29/21 05/29/21 omeprazole 1 cap PO DAILY 05/29/21 05/29/21 pen needle, diabetic [BD 05/29/21 05/29/21 Ultra-Fine Short Pen Needle] pioglitazone 1 tab PO DAILY 05/29/21 05/29/21 sildenafil 1 tab PO DAILY PRN 05/29/21 05/29/21 simvastatin 1 tab PO BEDTIME 05/29/21 05/29/21 testosterone 4 pump TOPICAL DAILY 05/29/21 05/29/21 DS: Summary Hospital Course Hospital Course: 50-year-old male with past medical history of asthma, autoimmune thyroiditis, BPH, GERD, HLD, HTN, diabetes, neuropathy, obesity who presents to the hospital with complaints of left foot swelling, and blister as well as infection. Patient reports that he has always had a small what appear to be a skin infection at the base of his right foot, that he was taking care of, but today he developed blistering around his large toe and redness and swelling of his right foot. Patient reports that he has been having fever and chills for the past for 5 days. The fever is subjective. He denies having any headache, change in vision, no chest pain, no shortness of breath, no abdominal pain nausea or vomiting no diarrhea constipation. No urinary symptoms. patient reports that he does not feel pain in his feet and therefore his never had any pain with his right foot On arrival to the ED patient's vital significant for temp of 99.0, heart rate of 108, respiratory rate of 20, blood pressure of 132/63, satting 98 on room air Labs are significant for WBC count of 14.8, hemoglobin of 11.3, ESR of 96, INR of 1.2, sodium of 134, BUN of 21, creatinine of 1.71 with a baseline around 0.9, hemoglobin of 500, total bili of 101, CRP of 39.88. Right foot x-ray shows air in the soft tissues in soft tissue swelling over the MTP joints, no fracture soft tissue foreign body or x-ray evidence of osteomyelitis Hospital course: # Sepsis secondary cellulitis due diabetic foot ulcer--Xray and MRI showed no evidence of Osteomylitis or necrotizing fascitis. Air seen on MRI was from open wound. Patient had bed side debridment by Dr. Davis and was followed by Dr. Tirado subsequently without need for further debridment. Blood cultures and wound cultures have been negaive. He was initially treated with Zosyn and Vancomycin. However Vancomycin was discontinued on second day due rising in serum creatinine. He was seen by infectious disease Dr. Hinton and given no osteomylitis and cultures been negative was recommended to transition to oral Augmentin He should follow up with surgery clinic and advised to return if worsening. Sepsis. No Osteomylitis by MRI. Air seen is tracking from open, no necrotizing fascitis. Blood cultures so far negative. Wound culture is growing group B strep. ID recommend Augmetin at discharge. He had several debridment by Surgery (Dr. Tirado) # ARSH--from pre renal azotemia, he likely has CKD 2. His last know normal Creatinine was 0.91 in February of 2020. He presented with Creatine of 1.71 on 05/29 and went down to 1.39 the following day 05/30 and only to go up again to 1.91 on 05/31 at which point Vancomycin was discontinued and was given IVF per nephrology advised and today 7.4 Creatine is down to 1.23. He is to avoid nephrotoxins and to have repeat labs within a week and to follow up with nephology clinic. #Diabetes mellitus with hyperglycemia--to continue insulin and oral agents at home # hypothyroidism - continue levothyroxine # HLD - continue statin # HTN--Lisinipril discontinued due to renal failure, and relatively low BP. No adding Norvasc for optimal BP control Final Diagnosis: Sepsis secondary cellulitis due diabetic foot ulcer Cellulitis of the right foot Diabetic foot ulcer Acute kidney injury due to pre renal azotemia CDK2 Time Spent with Patient Time attestation: Total time spent providing and/or coordinating discharge services: Discharge coordination time: Greater than 30 minutes Quality: Stroke Does the patient have a stroke diagnosis?: No DS: Data Data Completed and Pending Labs on day of discharge: Laboratory Results - last 24 hr 05/31/21 05/31/21 05/31/21 10:07 11:14 16:10 Sodium Potassium Chloride Carbon Dioxide Anion Gap BUN Creatinine Estim Creat Clear Calc Estimated GFR POC Glucose 204 H 218 H Random Glucose Calcium Ur Random Sodium Urine Creatinine Urine Microalbumin Microalb/Creat Ratio Vancomycin Trough 11.8 05/31/21 05/31/21 05/31/21 18:08 18:08 20:29 Sodium Potassium Chloride Carbon Dioxide Anion Gap BUN Creatinine Estim Creat Clear Calc Estimated GFR POC Glucose 180 H Random Glucose Calcium Ur Random Sodium 38.0 Urine Creatinine 143.86 Urine Microalbumin 243.0 Microalb/Creat Ratio 168.9 Vancomycin Trough 06/01/21 06/01/21 04:58 07:22 Sodium 143 Potassium 3.7 Chloride 109 H Carbon Dioxide 22 Anion Gap 16 BUN 18 H Creatinine 1.67 H Estim Creat Clear Calc 62.2 Estimated GFR 44 POC Glucose 109 Random Glucose 85 D Calcium 8.2 L Ur Random Sodium Urine Creatinine Urine Microalbumin Microalb/Creat Ratio Vancomycin Trough Preliminary micro results at discharge 05/29/21 22:14 Blood Culture - Preliminary Blood - Venous No growth after 48 hours. 05/29/21 22:14 Blood Culture - Preliminary Blood - Venous No growth after 48 hours. Discharge Plan Discharge Anticipated Discharge Date/Time: 06/03/21 11:48 Patient Disposition: Home Health Service Discharge Diagnosis: Cellulitis and abscess of the foot Referrals: [facility] [Outside] - 1 Week Nigel Tirado MD [Physician] - 1 Week (Call for appointment within a week) Miroslava Schroeder MD [Primary Care Provider] - 1 Week Discharge Medications: New amoxicillin-pot clavulanate [Augmentin] 875-125 mg tablet 1 tab PO Q12H Qty: 20 RF: 0 Continued imipramine HCl 10 mg tablet 1 tab PO BEDTIME RF: 0 (DME) pen needle, diabetic [BD Ultra-Fine Short Pen Needle] 31 gauge x 5/16 needle 1 ea subcut DAILY RF: 0 pioglitazone 45 mg tablet 1 tab PO DAILY RF: 0 sildenafil 100 mg tablet 1 tab PO DAILY PRN (Reason: Erectile Dysfunction) RF: 0 simvastatin 20 mg tablet 1 tab PO BEDTIME RF: 0 levothyroxine 150 mcg tablet 1 tab PO DAILY RF: 0 omeprazole 20 mg capsule,delayed release(DR/EC) 1 cap PO DAILY RF: 0 lisinopril 2.5 mg tablet 1 tab PO DAILY RF: 0 Lantus Solostar U-100 Insulin 100 unit/mL (3 mL) insulin pen 60 unit subcut DAILY RF: 0 testosterone 20.25 mg/1.25 gram (1.62 %) gel in metered-dose pump 4 pump topical DAILY RF: 0 No Action lancets [FreeStyle Lancets] 28 gauge misc 28 gauge topical TID Qty: 100 RF: 0 Discharge Orders: Discharge Order (Routine); Ordered 06/03/21 Ordered By: Dakotah Yun Diet: advance to usual diet and diabetic diet Activity on Discharge: As tolerated Stand Alone Forms: Patient Portal Discharge page Care Plan Goals: Full resolution of cellulitis and diabetic foot ulcer Health Concerns: cellulitis and abscess of the foot Plan of Treatment: Augmentin as recommended and follow up with Dr. Tirado in the office within a week, call 911 or come to the emergency if having fever, increasing pain, disolaration of the foot and drainage and redness of the foot, numbness in the foot Assessment: See above Discharge Date/Time: 06/03/21 15:10
[2021-06-03] MEDS: amLODIPine Besylate 5 MG TABLET 10 MG PO (09:45)
[2021-06-03 09:59] LABS: Anion Gap 15 (12-20); Blood Urea Nitrogen 11 mg/dL (9-16); Calcium 8.3 mg/dL (8.4-10.2); Carbon Dioxide 24 mmol/L (22-29); Chloride 110 mmol/L (96-108); Creatinine Clr Calc Pharmacy 84.5; Estimated Glomerular Filt Rate > 60; Glucose Random 120 mg/dL (60-115); Potassium 3.7 mmol/L (3.3-5.1); Sodium 145 mmol/L (135-145)
[2021-06-03 10:42] LABS: Complement C3 115 mg/dL (82-185)
[2021-06-03 11:28] LABS: Glucose, Whole Blood 135 mg/dL (60-115)
[2021-06-03 11:45] VITALS: BP 141/92; PULSE 103; RESP 18; TEMP 36.7; O2SAT 91
--- NOTE | 2021-06-03 13:03 | W.MHC.F2F ---
Service Date Service Date: 06/03/21 Reasons for Services Reason for chcf: wound care Homebound: Leaving the home is medically contraindicated at this time without the asist of a device and/or another person due th the listed conditions above and below. Homebound supporting statement: Homebound due to foot infection asociated with pain and making ambulation difficult and therefore needs the assitance of another person Certification: Based on the above findings, I certify that this patient is confined to the home and needs intermittent chcf care, physical therapy and/or speech therapy, or continues to need occupational therapy. The patient is under my care, and I have initiated the establishment of the plan of care. The patient will be followed by a physician who will periodically review the plan of care.
== END 2021-06-03 15:10 | disposition home health service (06) | DRG 720 ==
LOC: HO.ED 23:11 → HO.EDOVER 05-30 00:15 → HO.S3 05-30 00:23
PROVIDERS: Hospitalist; Internal Medicine Nephrology; Admitting Provider Internal Medicine; Emergency Provider Student in an Organized Health Care Education/Training Program; PCP Internal Medicine; Visit Provider Internal Medicine
DX: A41.9 Sepsis, unspecified organism (principal); N17.9 Acute kidney failure, unspecified; E11.22 Type 2 diabetes mellitus with diabetic chronic kidney disease; E11.621 Type 2 diabetes mellitus with foot ulcer; E11.65 Type 2 diabetes mellitus with hyperglycemia; E06.3 Autoimmune thyroiditis; K21.9 Gastro-esophageal reflux disease without esophagitis; E78.5 Hyperlipidemia, unspecified; L97.419 Non-pressure chronic ulcer of right heel and midfoot with unspecified severity; N40.0 Benign prostatic hyperplasia without lower urinary tract symptoms; I12.9 Hypertensive chronic kidney disease with stage 1 through stage 4 chronic kidney disease, or unspecified chronic kidney disease; N18.2 Chronic kidney disease, stage 2 (mild); Z20.822 Contact with and (suspected) exposure to COVID-19; Z79.4 Long term (current) use of insulin; Z79.890 Hormone replacement therapy; Z79.899 Other long term (current) drug therapy
CPT/HCPCS: 36415; 71045; 73630; 73720; 80048; 80202; 82043; 82247; 82947; 83605; 84300; 85025; 85027; 85610; 85652; 86140; 86160; 87040; 87071; 87086; 87147; 87205; 87635; 99285; A9585; J1650; J2543; J3370

== ENCOUNTER → 2021-07-02 14:08 | Outpatient (BNVA) | payer OTHER, SELFPAY | PROVIDERS: PCP Internal Medicine; Referring Provider Internal Medicine; Visit Provider Surgery | DX: E11.628 Type 2 diabetes mellitus with other skin complications (principal); L02.611 Cutaneous abscess of right foot; Z79.4 Long term (current) use of insulin | CPT/HCPCS: 11042; 99212 ==

== ENCOUNTER 2021-07-08 13:29 | Outpatient (RCR) | payer OTHER, SELFPAY ==
--- NOTE | ~2021-07-08 | XR_ITS ---
EXAMINATION: XR CHEST CLINICAL INFORMATION: Emphysema. COMPARISON: Chest x-ray May 29, 2021 TECHNIQUE: 2 views of the chest were obtained. FINDINGS: Lungs are clear. No hyperinflation of lungs. No pulmonary vascular congestion. There is no pleural effusion. The heart size is normal. The cardiac and mediastinal contours are normal. . There are multilevel degenerative changes of dorsal spine. XR/XR chest 2V IMPRESSION: No acute abnormality of chest. No hyperinflation of lungs.
== END 2021-11-06 11:35 | disposition home or self-care (01) ==
LOC: HO.WCC 13:29
PROVIDERS: PCP Internal Medicine; Visit Provider Physician Assistant
DX: E11.621 Type 2 diabetes mellitus with foot ulcer (principal); L97.515 Non-pressure chronic ulcer of other part of right foot with muscle involvement without evidence of necrosis; E11.65 Type 2 diabetes mellitus with hyperglycemia; E11.40 Type 2 diabetes mellitus with diabetic neuropathy, unspecified; L84 Corns and callosities; Z87.891 Personal history of nicotine dependence
CPT/HCPCS: 11042; 11043; 11044; 11045; 17250; 71046; 87071; 87077; 87147; 87186; 87205; 97597; 97605; 99183; 99212

== ENCOUNTER → 2021-07-09 15:12 | Outpatient (BNVA) | payer OTHER, SELFPAY | PROVIDERS: PCP Internal Medicine; Visit Provider Surgery | DX: E11.621 Type 2 diabetes mellitus with foot ulcer (principal); L97.519 Non-pressure chronic ulcer of other part of right foot with unspecified severity | CPT/HCPCS: 99212 ==

== ENCOUNTER 2021-07-18 11:19 | Outpatient (REF) | payer OTHER, SELFPAY ==
[2021-07-18 11:22] LABS: MANUAL DIFF FLAG NO
[2021-07-18 11:27] LABS: Basophils Percent Auto 0.3 % (0-2); Eosinophils Absolute Auto 0.2 X10*3/uL (0.0-0.4); Eosinophils Percent Auto 2.8 % (0-4); Hematocrit 31.8 % (42-52); Hemoglobin 10.3 g/dl (14.0-18.0); Imm Gran Abs Auto 0.02 X10*3/uL (0.00-0.03); Imm Gran Pct Auto 0.3 % (0.0-0.4); Lymphocytes Absolute Auto 1.9 X10*3/uL (1.2-4.9); Lymphocytes Percent Auto 25.7 % (20-40); Mean Corpuscular HGB Conc 32.4 g/dl (31.0-36.0); Mean Corpuscular Hemoglobin 26.8 pg (27.0-33.0); Mean Corpuscular Volume 82.6 fL (80-98); Mean Platelet Volume 9.2 fL (9.4-12.4); Monocytes Absolute Auto 0.4 X10*3/uL (0.1-1.2); Neutrophils Absolute Auto 4.7 X10*3/uL (2.0-8.3); Neutrophils Percent Auto 64.9 % (45-73); Platelet Count 346 X10*3/uL (160-400); Red Blood Count 3.85 X10*6/uL (4.60-5.80); White Blood Count 7.2 X10*3/uL (4.8-10.8)
[2021-07-18 11:38] LABS: Estimated Average Glucose 223 mg/dL; Hemoglobin A1c % 9.4 %
[2021-07-18 12:05] LABS: Anion Gap 14 (12-20); Blood Urea Nitrogen 26 mg/dL (9-16); C Reactive Protein 0.74 mg/dL (< or = 0.50); Calcium 9.4 mg/dL (8.4-10.2); Carbon Dioxide 24 mmol/L (22-29); Chloride 102 mmol/L (96-108); Estimated Glomerular Filt Rate 43; Glucose Random 246 mg/dL (60-115); Potassium 5.2 mmol/L (3.3-5.1); Sodium 135 mmol/L (135-145)
[2021-07-18 13:18] LABS: Erythrocyte Sedimentation Rate 93 MM/HR (0-15)
== END 2021-07-18 11:20 | disposition home or self-care (01) ==
LOC: HO.HVNA 11:19
PROVIDERS: Visit Provider Internal Medicine
DX: L97.518 Non-pressure chronic ulcer of other part of right foot with other specified severity (principal)
CPT/HCPCS: 36415; 80048; 83036; 84134; 85025; 85652; 86140

== ENCOUNTER → 2021-07-22 15:08 | Outpatient (REF) | payer OTHER, SELFPAY ==
--- NOTE | 2021-07-22 15:11 | HM_ITS ---
Basic rhythm is normal sinus rhythm with average heart rate of 106 beats per minute. Frequent sinus tachycardia noted with total 66% time heart rate about 100 beats per minute. No significant pauses or bradyarrhythmias noted. No significant other arrhythmias noted No patient reported events. MTDD
== END ==
LOC: HO.CARD 15:08
PROVIDERS: PCP Internal Medicine; Visit Provider Internal Medicine
DX: R00.0 Tachycardia, unspecified (principal)
CPT/HCPCS: 93242

== ENCOUNTER → 2021-07-23 10:04 | Outpatient (BNVA) | payer OTHER, SELFPAY | PROVIDERS: PCP Internal Medicine; Referring Provider Internal Medicine; Visit Provider Surgery | DX: E11.621 Type 2 diabetes mellitus with foot ulcer (principal); L97.519 Non-pressure chronic ulcer of other part of right foot with unspecified severity | CPT/HCPCS: 99212 ==

== ENCOUNTER 2021-07-25 15:38 | Outpatient (REF) | payer OTHER, SELFPAY ==
[2021-07-25 17:10] LABS: MANUAL DIFF FLAG NO
[2021-07-25 17:31] LABS: Basophils Percent Auto 0.4 % (0-2); Eosinophils Absolute Auto 0.2 X10*3/uL (0.0-0.4); Eosinophils Percent Auto 2.8 % (0-4); Hematocrit 33.3 % (42-52); Hemoglobin 10.5 g/dl (14.0-18.0); Imm Gran Abs Auto 0.01 X10*3/uL (0.00-0.03); Imm Gran Pct Auto 0.1 % (0.0-0.4); Lymphocytes Absolute Auto 2.2 X10*3/uL (1.2-4.9); Lymphocytes Percent Auto 26.6 % (20-40); Mean Corpuscular HGB Conc 31.5 g/dl (31.0-36.0); Mean Corpuscular Hemoglobin 26.4 pg (27.0-33.0); Mean Corpuscular Volume 83.7 fL (80-98); Mean Platelet Volume 9.8 fL (9.4-12.4); Monocytes Absolute Auto 0.5 X10*3/uL (0.1-1.2); Neutrophils Absolute Auto 5.2 X10*3/uL (2.0-8.3); Neutrophils Percent Auto 64.1 % (45-73); Platelet Count 366 X10*3/uL (160-400); Red Blood Count 3.98 X10*6/uL (4.60-5.80); Red Cell Distribution Width 14.3 % (11.0-16.0); White Blood Count 8.1 X10*3/uL (4.8-10.8)
[2021-07-25 17:45] LABS: Anion Gap 14 (12-20); Blood Urea Nitrogen 34 mg/dL (9-16); Calcium 9.7 mg/dL (8.4-10.2); Carbon Dioxide 27 mmol/L (22-29); Chloride 105 mmol/L (96-108); Estimated Glomerular Filt Rate 41; Potassium 5.6 mmol/L (3.3-5.1); Sodium 140 mmol/L (135-145)
[2021-07-25 18:06] LABS: Creatinine Urine 144.02 mg/dL; Protein/Creatinine Ratio, Ur 0.15 (<0.2); Total Protein Urine Random 22 mg/dL (<12)
== END 2021-07-25 15:39 | disposition home or self-care (01) ==
LOC: HO.LAB 15:38
PROVIDERS: PCP Internal Medicine; Visit Provider Internal Medicine Hypertension Specialist
DX: I10 Essential (primary) hypertension (principal)
CPT/HCPCS: 36415; 80051; 82310; 82565; 84156; 84520; 85025

== ENCOUNTER → 2021-08-26 15:27 | Outpatient (BNVA) | payer OTHER, SELFPAY | PROVIDERS: PCP Internal Medicine; Referring Provider Internal Medicine; Visit Provider Surgery | DX: E11.621 Type 2 diabetes mellitus with foot ulcer (principal); L97.509 Non-pressure chronic ulcer of other part of unspecified foot with unspecified severity | CPT/HCPCS: 99212 ==

== ENCOUNTER 2021-10-06 08:37 | Outpatient (REF) | payer OTHER, SELFPAY ==
[2021-10-06 09:03] LABS: MANUAL DIFF FLAG NO
[2021-10-06 09:43] LABS: Basophils Percent Auto 0.4 % (0-2); Eosinophils Absolute Auto 0.5 X10*3/uL (0.0-0.4); Eosinophils Percent Auto 5.9 % (0-4); Hematocrit 41.3 % (42.0-52.0); Hemoglobin 13.3 g/dl (14.0-18.0); Imm Gran Abs Auto 0.02 X10*3/uL (0.00-0.03); Imm Gran Pct Auto 0.3 % (0.0-0.4); Lymphocytes Absolute Auto 2.5 X10*3/uL (1.2-4.9); Lymphocytes Percent Auto 31.4 % (20-40); Mean Corpuscular HGB Conc 32.2 g/dl (31.0-36.0); Mean Corpuscular Hemoglobin 26.8 pg (27.0-33.0); Mean Corpuscular Volume 83.3 fL (80.0-98.0); Mean Platelet Volume 10.5 fL (9.4-12.4); Monocytes Absolute Auto 0.4 X10*3/uL (0.1-1.2); Monocytes Percent Auto 5.5 % (2-11); Neutrophils Absolute Auto 4.5 x10*3/uL (2.0-8.3); Neutrophils Percent Auto 56.5 % (45-73); Platelet Count 308 X10*3/uL (160-400); Red Blood Count 4.96 X10*6/uL (4.60-5.80); Red Cell Distribution Width 14.3 % (11.0-16.0); White Blood Count 7.9 X10*3/uL (4.8-10.8)
[2021-10-06 10:08] LABS: Anion Gap 14 (12-20); Blood Urea Nitrogen 12 mg/dL (9-16); Calcium 9.3 mg/dL (8.4-10.2); Carbon Dioxide 30 mmol/L (22-29); Chloride 104 mmol/L (96-108); Estimated Glomerular Filt Rate > 60; Potassium 4.3 mmol/L (3.3-5.1); Sodium 144 mmol/L (135-145)
[2021-10-06 11:58] LABS: Microalbum/Creatinine Ratio Ur 274.9 ug/mg cr
== END 2021-10-06 08:38 | disposition home or self-care (01) ==
LOC: HO.LAB 08:37
PROVIDERS: PCP Internal Medicine; Visit Provider Internal Medicine Hypertension Specialist
DX: E11.22 Type 2 diabetes mellitus with diabetic chronic kidney disease (principal); N18.9 Chronic kidney disease, unspecified
CPT/HCPCS: 36415; 80051; 82043; 82310; 82565; 84520; 85025

== ENCOUNTER → 2021-10-08 15:30 | Outpatient (BNVA) | payer OTHER, SELFPAY | PROVIDERS: PCP Internal Medicine; Referring Provider Internal Medicine; Visit Provider Surgery | DX: E11.621 Type 2 diabetes mellitus with foot ulcer (principal); L97.509 Non-pressure chronic ulcer of other part of unspecified foot with unspecified severity; E11.65 Type 2 diabetes mellitus with hyperglycemia; E11.42 Type 2 diabetes mellitus with diabetic polyneuropathy; H54.8 Legal blindness, as defined in USA; K21.9 Gastro-esophageal reflux disease without esophagitis; Z83.3 Family history of diabetes mellitus; Z82.49 Family history of ischemic heart disease and other diseases of the circulatory system; Z91.018 Allergy to other foods; Z88.8 Allergy status to other drugs, medicaments and biological substances; J30.81 Allergic rhinitis due to animal (cat) (dog) hair and dander | CPT/HCPCS: 99212 ==

== ENCOUNTER 2021-10-15 10:20 | Outpatient (REF) | payer OTHER, SELFPAY ==
[2021-10-15 10:34] LABS: MANUAL DIFF FLAG NO
[2021-10-15 10:53] LABS: Basophils Percent Auto 0.5 % (0-2); Eosinophils Absolute Auto 0.3 X10*3/uL (0.0-0.4); Eosinophils Percent Auto 4.3 % (0-4); Hematocrit 42.7 % (42.0-52.0); Hemoglobin 14.5 g/dl (14.0-18.0); Imm Gran Abs Auto 0.03 X10*3/uL (0.00-0.03); Imm Gran Pct Auto 0.4 % (0.0-0.4); Lymphocytes Absolute Auto 2.2 X10*3/uL (1.2-4.9); Lymphocytes Percent Auto 27.6 % (20-40); Mean Corpuscular Hemoglobin 27.7 pg (27.0-33.0); Mean Corpuscular Volume 81.5 fL (80.0-98.0); Mean Platelet Volume 10.4 fL (9.4-12.4); Monocytes Absolute Auto 0.4 X10*3/uL (0.1-1.2); Monocytes Percent Auto 5.2 % (2-11); Neutrophils Absolute Auto 4.9 x10*3/uL (2.0-8.3); Platelet Count 282 X10*3/uL (160-400); Red Blood Count 5.24 X10*6/uL (4.60-5.80); Red Cell Distribution Width 13.7 % (11.0-16.0); White Blood Count 7.9 X10*3/uL (4.8-10.8)
[2021-10-15 11:42] LABS: Alanine Aminotransferase 23 U/L (0-40); Albumin Level 4.6 g/dL (3.5-5.0); Alkaline Phosphatase 106 U/L (39-117); Anion Gap 15 (12-20); Aspartate Amino Transferase 18 U/L (5-37); Bilirubin Total 0.8 mg/dL (0.0-1.0); Blood Urea Nitrogen 25 mg/dL (9-16); Calcium 10.2 mg/dL (8.4-10.2); Carbon Dioxide 27 mmol/L (22-29); Chloride 101 mmol/L (96-108); Cholesterol 212 mg/dL; Estimated Glomerular Filt Rate 48; Glucose Fasting 361 mg/dL (60-99); HDL Cholesterol 51 mg/dL; LDL Cholesterol Calculated 119 mg/dl; Sodium 138 mmol/L (135-145); Triglycerides 212 mg/dL
[2021-10-15 11:47] LABS: Thyroid Stimulating Hormone 3.49 uIU/mL (0.32-4.0)
[2021-10-15 11:50] LABS: Estimated Average Glucose 232 mg/dL; Hemoglobin A1c % 9.7 %
[2021-10-15 13:28] LABS: Microalbum/Creatinine Ratio Ur 306.6 ug/mg cr
[2021-10-22 12:52] LABS: Testosterone, Free 44.8 pg/mL (35.0-155.0); Testosterone, Total 367 ng/dL (250-1100)
== END 2021-10-15 10:21 | disposition home or self-care (01) ==
LOC: HO.LAB 10:20
PROVIDERS: Urology; PCP Internal Medicine; Visit Provider Nurse Practitioner Acute Care
DX: Z12.5 Encounter for screening for malignant neoplasm of prostate (principal); N40.1 Benign prostatic hyperplasia with lower urinary tract symptoms; E29.1 Testicular hypofunction; E11.621 Type 2 diabetes mellitus with foot ulcer; L97.509 Non-pressure chronic ulcer of other part of unspecified foot with unspecified severity; E11.65 Type 2 diabetes mellitus with hyperglycemia; R00.0 Tachycardia, unspecified; Z79.4 Long term (current) use of insulin
CPT/HCPCS: 36415; 80053; 80061; 82043; 83036; 84153; 84402; 84403; 84443; 85025

== ENCOUNTER → 2021-10-29 14:06 | Outpatient (BNVA) | payer OTHER, SELFPAY | PROVIDERS: PCP Internal Medicine; Visit Provider Urology ==

== ENCOUNTER → 2021-12-08 15:30 | Outpatient (BNVA) | payer OTHER, SELFPAY | PROVIDERS: PCP Internal Medicine; Referring Provider Internal Medicine; Visit Provider Surgery | DX: Z09 Encounter for follow-up examination after completed treatment for conditions other than malignant neoplasm (principal); E11.621 Type 2 diabetes mellitus with foot ulcer; L97.519 Non-pressure chronic ulcer of other part of right foot with unspecified severity | CPT/HCPCS: 99212 ==

== ENCOUNTER 2022-01-05 15:25 | Outpatient (REF) | payer OTHER, SELFPAY ==
[2022-01-05 16:44] LABS: Hematocrit 41.8 % (42.0-52.0); Mean Corpuscular HGB Conc 33.5 g/dl (31.0-36.0); Mean Corpuscular Hemoglobin 27.4 pg (27.0-33.0); Mean Corpuscular Volume 81.8 fL (80.0-98.0); Mean Platelet Volume 10.5 fL (9.4-12.4); Platelet Count 251 X10*3/uL (160-400); Red Blood Count 5.11 X10*6/uL (4.60-5.80); Red Cell Distribution Width 12.8 % (11.0-16.0); White Blood Count 8.3 X10*3/uL (4.8-10.8)
[2022-01-05 16:58] LABS: Anion Gap 13 (12-20); Blood Urea Nitrogen 11 mg/dL (9-16); Calcium 9.4 mg/dL (8.4-10.2); Carbon Dioxide 28 mmol/L (22-29); Chloride 104 mmol/L (96-108); Estimated Glomerular Filt Rate > 60; Glucose Random 202 mg/dL (60-115); Potassium 4.4 mmol/L (3.3-5.1); Sodium 141 mmol/L (135-145)
== END 2022-01-05 15:26 | disposition home or self-care (01) ==
LOC: HO.LAB 15:25
PROVIDERS: PCP Internal Medicine; Visit Provider Internal Medicine Hypertension Specialist
DX: E11.22 Type 2 diabetes mellitus with diabetic chronic kidney disease (principal); N18.31 Chronic kidney disease, stage 3a
CPT/HCPCS: 36415; 80048; 85027

== ENCOUNTER → 2022-02-23 15:37 | Outpatient (RCR) | payer OTHER, SELFPAY ==
--- NOTE | 2021-02-03 10:24 | MHC.PT.DC ---
[facility] [place] [facility] [place] [facility] [place] [facility] [address] Nelia Duff [address] [phone] F: [phone] F: [phone] F: [phone] F: [phone] Physical Therapy Discharge Report Diagnosis: Lower back pain, bilateral shoulder pain, cervicalgia, fall. Date of Surgery: Date of Evaluation: 12/12/20 Date of Discharge: 02/03/21 Treatments to Date: 7 Cancellations to Date: 1 No Shows to Date: 0 Discharge Status: Patient Elected to Stop Discharge Summary: Pt has not been seen in 19 days. On his last treatment session, the Pt was instructed in proper lifting techniques w/ 10# for carryover into occupation specifics. Pt informed us at that time that he is out of work per MD. He has not returned for PT intervention and therefore d/c @ this time. Electronically signed by: Erin Negron PT, DPT Please sign and return to therapist. Thank you for your referral.
--- NOTE | 2021-02-03 10:25 | MHC.PT.EP ---
[facility] [place] Office [place] Office [place] Office [address] Nelia Duff [address] [phone] F: [phone] F: [phone] F: [phone] F: [phone] Physical Therapy Plan of Care Date of Evaluation: 01/14/21 Date of Surgery: Diagnosis: Lower back pain, bilateral shoulder pain, cervicalgia, fall. Assessment: Assessment reveals decreased cervical, thoracic, shoulder, hip, and lumbar ROM, impaired strength, guarding w/ all movements, gait deviations, impaired strength, impaired posture, tenderness to palpation, increased tissue tension, and muscle length restrictions. Related functional limitations include: inability to walk,stand, or sit for an extended period of time, difficulty lifting, donning/doffing clothes, driving, getting in/out of the car, squatting, moving around in bed, and sleeping. The Pt will benefit from skilled PT services 2x/week for 5 weeks in order to reduce impairments and restore function. Frequency and Duration: The patient will be seen 2x/week for 5 weeks Short Term Goals: STG Met for 7/10 px level Shelter Goals: -In 4 weeks, Pt to demonstrate the ability to perform a functional squat w/ <4/10 pain. -In 5 weeks, Pt to self report at least a 75% improvement in function since onset of PT. Treatment Plan: Modalities to reduce pain, spasms and effusion. Manual therapy to restore motion and function. Therapeutic exercise to improve strength and flexibility. Neuromuscular re-education for posture and balance. Therapeutic activities to return to functional activities of daily living. Electronically signed by: Erin Negron PT, DPT Please sign and return to therapist. Thank you for your referral.
== END | disposition home or self-care (01) ==
LOC: HO.PT 12-12 15:51
PROVIDERS: PCP Internal Medicine; Visit Provider Internal Medicine
DX: M54.5 Low back pain (principal); M25.511 Pain in right shoulder; M54.2 Cervicalgia
CPT/HCPCS: 97014; 97110; 97140; 97161; 97530

== ENCOUNTER 2022-04-30 07:42 | Outpatient (REF) | payer OTHER, SELFPAY ==
[2022-04-30 07:59] LABS: MANUAL DIFF FLAG NO
[2022-04-30 08:35] LABS: Basophils Percent Auto 0.4 % (0-2); Eosinophils Absolute Auto 0.4 X10*3/uL (0.0-0.4); Eosinophils Percent Auto 4.5 % (0-4); Hematocrit 43.7 % (42.0-52.0); Hemoglobin 14.4 g/dl (14.0-18.0); Imm Gran Abs Auto 0.03 X10*3/uL (0.00-0.03); Imm Gran Pct Auto 0.3 % (0.0-0.4); Lymphocytes Absolute Auto 2.4 X10*3/uL (1.2-4.9); Mean Corpuscular Hemoglobin 26.9 pg (27.0-33.0); Mean Corpuscular Volume 81.7 fL (80.0-98.0); Mean Platelet Volume 10.6 fL (9.4-12.4); Monocytes Absolute Auto 0.6 X10*3/uL (0.1-1.2); Monocytes Percent Auto 6.7 % (2-11); Neutrophils Absolute Auto 5.7 x10*3/uL (2.0-8.3); Neutrophils Percent Auto 62.1 % (45-73); Platelet Count 282 X10*3/uL (160-400); Red Blood Count 5.35 X10*6/uL (4.60-5.80); Red Cell Distribution Width 13.4 % (11.0-16.0); White Blood Count 9.2 X10*3/uL (4.8-10.8)
[2022-04-30 08:43] LABS: Estimated Average Glucose 252 mg/dL; Hemoglobin A1c % 10.4 %
[2022-04-30 08:56] LABS: Alanine Aminotransferase 19 U/L (0-40); Albumin Level 4.2 g/dL (3.5-5.0); Alkaline Phosphatase 90 U/L (39-117); Anion Gap 15 (12-20); Aspartate Amino Transferase 18 U/L (5-37); Bilirubin Total 0.7 mg/dL (0.0-1.0); Blood Urea Nitrogen 40 mg/dL (9-16); Calcium 9.4 mg/dL (8.4-10.2); Carbon Dioxide 25 mmol/L (22-29); Chloride 103 mmol/L (96-108); Cholesterol 205 mg/dL; Estimated Glomerular Filt Rate 42; Glucose Random 185 mg/dL (60-115); HDL Cholesterol 42 mg/dL; LDL Cholesterol Calculated 138 mg/dl; Potassium 4.1 mmol/L (3.3-5.1); Sodium 139 mmol/L (135-145); Total Protein 7.2 g/dL (6.5-8.0); Triglycerides 126 mg/dL
[2022-04-30 09:20] LABS: Prostate Specific Antigen 0.29 ng/mL (<0.05-4.0)
[2022-05-05 10:36] LABS: Testosterone, Total 351 ng/dL (250-1100)
== END 2022-04-30 07:43 | disposition home or self-care (01) ==
LOC: HO.LAB 07:42
PROVIDERS: Absent Provider Urology; PCP Internal Medicine; Visit Provider Internal Medicine
DX: Z12.5 Encounter for screening for malignant neoplasm of prostate (principal); E29.1 Testicular hypofunction
CPT/HCPCS: 36415; 80053; 80061; 83036; 84153; 84403; 85025

== ENCOUNTER → 2022-05-05 08:24 | Outpatient (BNVA) | payer OTHER, SELFPAY | PROVIDERS: PCP Internal Medicine; Visit Provider Urology | DX: Z13.89 Encounter for screening for other disorder (principal) ==

== ENCOUNTER 2022-06-04 07:48 | Outpatient (REF) | payer OTHER, SELFPAY ==
[2022-06-04 08:26] LABS: COVID-19 Test Positive (Negative)
== END 2022-06-04 07:49 | disposition home or self-care (01) ==
LOC: HO.LAB 07:48
PROVIDERS: Visit Provider Internal Medicine
DX: Z20.822 Contact with and (suspected) exposure to COVID-19 (principal)
CPT/HCPCS: 87635; C9803

== ENCOUNTER 2022-07-07 17:23 | Emergency (ER) | payer OTHER, SELFPAY ==
--- NOTE | ~2022-07-07 | XR_ITS ---
EXAMINATION: XR FOOT, RIGHT CLINICAL INFORMATION: Pain and swelling. No new injury. COMPARISON: Right foot MRI 05/30/2021 and right foot x-rays 05/29/2021 TECHNIQUE: AP, lateral, and oblique views of the right foot. FINDINGS: Bones of the midfoot are well aligned. No tarsal fracture. Interval development of prominent destructive degenerative changes of the second MTP joint with partial subluxation. There are mild degenerative changes of the first MTP joint and scattered IP joints. Prominent plantar calcaneal enthesophytes. No focal soft tissue swelling. Calcifications noted. XR/XR foot RT min 3V IMPRESSION: Interval development of prominent destructive degenerative changes of the second MTP joint.
[2022-07-07 18:33] VITALS: BP 125/85; PULSE 89; RESP 18; TEMP 36.8; O2SAT 95; BMI 34.7
[2022-07-07 18:43] LABS: MANUAL DIFF FLAG NO
[2022-07-07 18:45] LABS: Basophils Percent Auto 0.4 % (0-2); Eosinophils Absolute Auto 0.3 X10*3/uL (0.0-0.4); Eosinophils Percent Auto 3.4 % (0-4); Hematocrit 39.6 % (42.0-52.0); Hemoglobin 13.5 g/dl (14.0-18.0); Imm Gran Abs Auto 0.03 X10*3/uL (0.00-0.03); Imm Gran Pct Auto 0.4 % (0.0-0.4); Lymphocytes Absolute Auto 2.5 X10*3/uL (1.2-4.9); Lymphocytes Percent Auto 32.8 % (20-40); Mean Corpuscular HGB Conc 34.1 g/dl (31.0-36.0); Mean Corpuscular Hemoglobin 27.6 pg (27.0-33.0); Mean Platelet Volume 10.4 fL (9.4-12.4); Monocytes Absolute Auto 0.4 X10*3/uL (0.1-1.2); Monocytes Percent Auto 5.3 % (2-11); Neutrophils Absolute Auto 4.4 x10*3/uL (2.0-8.3); Neutrophils Percent Auto 57.7 % (45-73); Platelet Count 267 X10*3/uL (160-400); Red Blood Count 4.89 X10*6/uL (4.60-5.80); White Blood Count 7.6 X10*3/uL (4.8-10.8)
[2022-07-07 18:56] LABS: Anion Gap 13 (12-20); Blood Urea Nitrogen 18 mg/dL (9-16); Calcium 8.7 mg/dL (8.4-10.2); Carbon Dioxide 24 mmol/L (22-29); Chloride 107 mmol/L (96-108); Creatinine Clr Calc Pharmacy 90.6; Estimated Glomerular Filt Rate > 60; Glucose Random 184 mg/dL (60-115); Sodium 140 mmol/L (135-145)
--- NOTE | 2022-07-07 19:37 | PC.NURSE ---
patient ambulatory into ED w/ steady gait. skin pwd. resp even and non labored. speaking in full, clear sentences. reports exacerbation of chronic right lower back pain traveling down right leg. also reports increased pain and swelling to right foot over the past week- patient has a hx of right foot infection requiring surgery and hyperbaric chamber last summer. right foot w/ positve CSM, positive pulses, patient able to freely move foot although reports pain. swelling noted, no redness or heat. patient denies new injury. awaiting initial provider eval.
--- NOTE | 2022-07-07 20:24 | ED_ITS ---
HPI - General Adult General Chief complaint: Extremity Problem Stated complaint: Back Pain S/P Fall in Dec & R Foot Pain Time Seen by Provider: 07/07/22 19:31 Source: patient Mode of arrival: ambulatory Limitations: no limitations History of Present Illness HPI narrative: Patient comes to the emergency room complaining of chronic sciatica pain and foot discoloration that self-resolved. Patient states that this morning when he woke up, he thought his foot was a bit red, but maybe not, patient was unsure. Also, patient states that his sciatica pain is acting up, he has chronic shooting pain going from the lower back towards the right lower extremity. Patient states that he was getting steroid injections in his back for the pain, he is currently waiting another shot. Patient denies urinary/fecal inconti nence/retention. Related Data Home Medications Medication Instructions Recorded Confirmed sildenafil 100 mg tablet 1 tab PO DAILY PRN Erectile 05/29/21 02/17/22 Dysfunction Previous Rx's Medication Instructions Recorded blood sugar diagnostic (FreeStyle #3 boxes 06/17/21 Lite Strips) sildenafil 100 mg tablet 100 mg PO DAILY PRN sexual 08/20/21 activity 30 days #20 tabs dulaglutide 1.5 mg/0.5 mL 1.5 mg (0.5 mL) subcut QWEEK #28 mL 10/15/21 subcutaneous pen injector ([employer]) miscellaneous medical supply 1 ea miscellaneous DAILY #1 ea 10/15/21 imipramine HCl 10 mg tablet 10 mg PO BEDTIME 90 days #90 tabs 11/19/21 lancets 28 gauge (FreeStyle 28 gauge topical TID for diabetes 01/05/22 Lancets) mellitus #100 ea lisinopril 2.5 mg tablet 2.5 mg PO DAILY 90 days #90 tabs 01/07/22 simvastatin 20 mg tablet 20 mg PO BEDTIME 90 days #90 tabs 02/09/22 polyethylene glycol 3350 17 gram 17 g PO DAILY PRN constipation 90 02/17/22 oral powder packet (Miralax) days #100 ea pen needle, diabetic 31 gauge x 1 ea subcut DAILY #30 ea 03/02/22 5/16 (BD Ultra-Fine Short Pen Needle) tadalafil 10 mg tablet 10 mg PO DAILY sexual activity 90 05/05/22 days #90 tabs testosterone 20.25 mg/1.25 gram 4 pump topical DAILY 28 days #150 05/05/22 (1.62 %) transdermal gel pump grams levothyroxine 150 mcg tablet 150 mcg PO DAILY 90 days #90 tabs 05/10/22 pioglitazone 45 mg tablet 45 mg PO DAILY #30 tabs 05/10/22 tramadol 50 mg tablet 50 mg PO DAILY #30 tabs 05/22/22 insulin glargine 100 unit/mL (3 65 unit (0.65 mL) subcut QPM 90 06/22/22 mL) subcutaneous pen ( #58.5 mL KwikPen U-100 Insulin) omeprazole 20 mg capsule,delayed 20 mg PO DAILY 90 days #90 caps 06/28/22 release cyclobenzaprine 10 mg tablet 10 mg PO BID PRN muscle spasm #7 07/07/22 tabs tramadol 50 mg tablet 50 mg PO BID PRN pain #7 tabs 07/07/22 Allergies Allergy/AdvReac Type Severity Reaction Status Date / Time dog dander Allergy Intermediate Ithcy Verified 05/05/22 08:26 metformin [METFORMIN] Allergy Intermediate LACTIC Verified 05/05/22 08:26 ACIDOSIS nut - unspecified Allergy Intermediate hives/throat Verified 05/05/22 08:26 constriction sunflower seeds Allergy Intermediate throat Uncoded 05/05/22 08:26 itchiness Review of Systems Review of Systems: Constitutional : No Weight loss, No Fever, No Chills, No Night Sweats, No Fatigue, No Malaise ENT/Mouth : No Hearing loss, No Ear Pain, No Nasal Congestion, No Sinus Pain, No Hoarseness, No sore throat, No Rhinorrhea, No Swallowing Difficulty Eyes: No Eye Pain, No Swelling, No Redness, No Foreign Body, No Discharge, No Vision Changes Cardiovascular : No Chest Pain, No SOB, No Dyspnea on Exertion, No Orthopnea, No Edema, No Palpitations Respiratory : No Cough, No Sputum, No Wheezing, No Smoke Exposure, No Dyspnea Gastrointestinal : No Nausea, No Vomiting, No Diarrhea, No Constipation, No abdominal Pain, No Hematochezia, No Melena Genitourinary : no irregular bleeding, No Dysuria, No Urinary Frequency, No Hematuria, No Urinary Incontinence, No Urgency, No Flank Pain, No Urinary Flow Changes, No Hesitancy Musculoskeletal : No joint pain, No Myalgias, No Joint Swelling, complaining of lower back pain radiating from the lumbar spine to the right heel Skin : No Skin Lesions, No rash complaining of skin discoloration that self-resolved Neuro : No Weakness, No Numbness, No Paresthesias, No Loss of Consciousness, No Dizziness, No Headache Psych : No Anxiety/Panic, No Depression, No SI/HI/AH/VH, No Social Issues, Heme/Lymph: No Bruising, No Bleeding,No Lymphadenopathy Endocrine : No Polyuria, No Polydipsia, No Temperature Intolerance [facility] Past Medical History Medical History Annual physical exam Asthma Autoimmune thyroiditis Benign prostatic hyperplasia with lower urinary tract symptoms BPH (benign prostatic hyperplasia) Diabetic foot GERD (gastroesophageal reflux disease) Hypercholesterolemia Hypertension Hypogonadism in male Legally blind in left eye, as defined in [place] Neuropathy Obesity (BMI 30-39.9) Tachycardia Type 2 diabetes mellitus with hyperglycemia Surgical History Strabismus Family History Family History Father No problems noted. Mother Skin cancer Hypertension Diabetes Breast cancer in situ Maternal Grandmother Diabetes Hypertension Heart attack Breast cancer in situ Maternal Grandfather Stroke Diabetes Hypertension Heart attack Maternal Aunt Cancer Breast cancer in situ Sister No problems noted. Brother No problems noted. Family/Other Mental health disorder Social History Social History Household Members: Family Housing: House Do you presently have visiting nurse or other home services: No Alcohol intake: current Alcohol intake frequency: holidays/special occasions only Alcohol type: beer and hard liquor Patient Tobacco Use Status: Never used Tobacco Tobacco use type: Cigarette e-Cigarette/Vaping Use: Never Used Second Hand Smoke Exposure: No Advance Directives: No Advance Directives Information Provided: No service: No (WENT FOR BASIC TRAINING AND THEN LEFT) Current occupational status: other Cognitive needs: No Hearing needs: No Vision needs: Yes Physical Exam ED Vital Signs: Vital Signs - 24 hr 07/07/22 18:33 Temperature 98.2 F Pulse Rate 89 Respiratory Rate 18 Blood Pressure 125/85 Pulse Oximetry 95 Oxygen Delivery Method Room Air BMI result Body Mass Index 34.7 Const Other: Appearance: Alert. Oriented X3. No acute distress. Eyes: Pupils equal, round and reactive to light. ENT: Pharynx normal. Neck: Normal inspection. Neck supple. No lymph nodes noted. No crepitus CVS: Normal heart rate and rhythm. Pulses normal. Normal S1 and S2 Respiratory: No respiratory distress. Breath sounds normal. No Wheezing. No rales Abdomen: Soft and nontender. No rigidity. No distention. Back: Positive straight raise test on the right side Skin: Skin warm and dry. Normal skin color. Normal skin turgor. Extremities: No lower extremity edema. No Lacerations. No Rash. The lower extremity is not discolored, has good pedal pulses, normal sensation, no pain, no swelling. Neuro: Oriented X 3. No motor deficit. No sensory deficit. Moving all extremities. No slurred speech. CN 2 through 12 grossly intact Psych: calm, cooperative, normal affect Course Course Course Narrative: I discussed the physical exam with the patient. At this time, cellulitis is not suspected. White blood cell count within normal limits. Patient likely has sciatica pain exacerbation. Patient states that his computer science intern has told him not to use any NSAIDs. Patient states that tramadol tightness his back. I offered tramadol and muscle relaxants for the patient. Patient agrees with plan. I discussed with the patient that he will likely benefit from physical therapy evaluation. If symptoms getting worse, patient may need an MRI and referral to neurosurgery if indicated Medical Decision Making Lab Data Result diagrams: 07/07/22 18:36 07/07/22 18:36 Labs: Lab Results 07/07/22 07/07/22 Range/Units 18:36 18:36 WBC 7.6 (4.8-10.8) X10*3/uL RBC 4.89 (4.60-5.80) X10*6/uL Hgb 13.5 L (14.0-18.0) g/dl Hct 39.6 L (42.0-52.0) % MCV 81.0 (80.0-98.0) fL MCH 27.6 (27.0-33.0) pg MCHC 34.1 (31.0-36.0) g/dl RDW 13.0 (11.0-16.0) % Plt Count 267 (160-400) X10*3/uL MPV 10.4 (9.4-12.4) fL Immature Gran % (Auto) 0.4 (0.0-0.4) % Neut % (Auto) 57.7 (45-73) % Lymph % (Auto) 32.8 (20-40) % Greenlee % (Auto) 5.3 (2-11) % Eos % (Auto) 3.4 (0-4) % Baso % (Auto) 0.4 (0-2) % Lymph # (Auto) 2.5 (1.2-4.9) X10*3/uL Greenlee # (Auto) 0.4 (0.1-1.2) X10*3/uL Eos # (Auto) 0.3 (0.0-0.4) X10*3/uL Baso # (Auto) 0.0 (0.0-0.2) X10*3/uL Abs Immat Gran (auto) 0.03 (0.00-0.03) X10*3/uL Absolute Neuts (auto) 4.4 (2.0-8.3) x10*3/uL Absolute Nucleated RBC 0.000 (0.0-0.012) X10*3/uL Nucleated RBC % (auto) 0.0 (0.0-0.2) /100WBC Sodium 140 (135-145) mmol/L Potassium 4.0 (3.3-5.1) mmol/L Chloride 107 (96-108) mmol/L Carbon Dioxide 24 (22-29) mmol/L Anion Gap 13 (12-20) BUN 18 H D (9-16) mg/dL Creatinine 1.09 (0.5-1.4) mg/dL Estim Creat Clear Calc 90.6 Estimated GFR > 60 Random Glucose 184 H (60-115) mg/dL Calcium 8.7 D (8.4-10.2) mg/dL Imaging Data Foot x-ray: Radiologist's impression: Bones of the midfoot are well aligned. No tarsal fracture. Interval development of prominent destructive degenerative changes of the second MTP joint with partial subluxation. There are mild degenerative changes of the first MTP joint and scattered IP joints. Prominent plantar calcaneal enthesophytes. No focal soft tissue swelling. Calcifications noted. XR/XR foot RT min 3V IMPRESSION: Interval development of prominent destructive degenerative changes of the second MTP joint. Discharge Plan Discharge Clinical Impression: Sciatica of right side Patient Disposition: Home, Self-Care Instructions: Sciatica (ED), Lumbar Radiculopathy (ED), Lower Back Exercises (ED) Additional Instructions: Please follow-up with your primary care physician tomorrow. If you have any worsening or new symptoms, please return to the emergency room or call 911 Prescriptions: New tramadol 50 mg tablet 50 mg PO BID PRN (Reason: pain) Qty: 7 0RF cyclobenzaprine 10 mg tablet 10 mg PO BID PRN (Reason: muscle spasm) Qty: 7 0RF No Action (DME) FreeStyle Lite Strips Strip See Rx Instructions .ROUTE .MEDSUPPLY Qty: 3 3RF Rx Instructions: As directed check the BS TID sildenafil 100 mg tablet 100 mg PO DAILY PRN (Reason: sexual activity) 30 Days Qty: 20 2RF Rx Instructions: administer 30 minutes to 4 hours before activity Trulicity 1.5 mg/0.5 mL pen injector 1.5 mg subcut QWEEK Qty: 28 2RF imipramine HCl 10 mg tablet 10 mg PO BEDTIME 90 Days Qty: 90 3RF lancets [FreeStyle Lancets] 28 gauge misc 28 gauge topical TID Qty: 100 0RF lisinopril 2.5 mg tablet 2.5 mg PO DAILY 90 Days Qty: 90 1RF simvastatin 20 mg tablet 20 mg PO BEDTIME 90 Days Qty: 90 2RF pen needle, diabetic [BD Ultra-Fine Short Pen Needle] 31 gauge x 5/16 needle 1 ea subcut DAILY Qty: 30 3RF levothyroxine 150 mcg tablet 150 mcg PO DAILY 90 Days Qty: 90 0RF pioglitazone 45 mg tablet 45 mg PO DAILY Qty: 30 2RF insulin glargine [Basaglar KwikPen U-100 Insulin] 100 unit/mL (3 mL) insulin pen 65 unit subcut QPM 90 Days Qty: 58.5 1RF omeprazole 20 mg capsule,delayed release(DR/EC) 20 mg PO DAILY 90 Days Qty: 90 1RF sildenafil 100 mg tablet 1 tab PO DAILY PRN (Reason: Erectile Dysfunction) polyethylene glycol 3350 [Miralax] 17 gram powder in packet 17 g PO DAILY PRN (Reason: constipation) 90 Days Qty: 100 0RF miscellaneous medical supply Misc 1 ea miscellaneous DAILY Qty: 1 0RF Rx Instructions: diabetic shoes with inserts tramadol 50 mg tablet 50 mg PO DAILY Qty: 30 0RF testosterone 20.25 mg/1.25 gram (1.62 %) gel in metered-dose pump 4 pump topical DAILY 28 Days Qty: 150 5RF Rx Instructions: Apply to upper arms and massage into skin until dry tadalafil 10 mg tablet 10 mg PO DAILY 90 Days Qty: 90 1RF
== END 2022-07-07 20:57 | disposition home or self-care (01) ==
PROVIDERS: Emergency Provider Emergency Medicine; PCP Internal Medicine
DX: M54.41 Lumbago with sciatica, right side (principal); E11.9 Type 2 diabetes mellitus without complications; I10 Essential (primary) hypertension; E66.9 Obesity, unspecified; Z68.34 Body mass index [BMI] 34.0-34.9, adult
CPT/HCPCS: 36415; 73630; 80048; 85025; 99282; 99283

== ENCOUNTER 2022-07-25 16:01 | Emergency (ER) | payer OTHER, SELFPAY ==
[2022-07-25 16:16] VITALS: BP 148/88; PULSE 114; RESP 17; TEMP 36.4; O2SAT 97; BMI 34.9
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
[2022-07-25] MEDS: Cyclobenzaprine HCl 5 MG TABLET PO (16:50)
[2022-07-25] MEDS: Ketorolac Tromethamine 15 MG/ML VIAL IM (16:50)
== END 2022-07-25 17:18 | disposition home or self-care (01) ==
PROVIDERS: Emergency Provider Emergency Medicine; PCP Internal Medicine
DX: Z04.1 Encounter for examination and observation following transport accident (principal); M54.9 Dorsalgia, unspecified
CPT/HCPCS: 96372; 99283; 99284; J1885

== ENCOUNTER 2022-08-05 14:58 | Outpatient (REF) | payer OTHER, SELFPAY ==
--- NOTE | ~2022-08-05 | XR_ITS ---
EXAMINATION: XR CERVICAL SPINE CLINICAL INFORMATION: Neck pain COMPARISON: None TECHNIQUE: 3 views of the cervical spine were obtained. FINDINGS: There is mild straightening of cervical lordosis. The vertebral heights and alignment is normal. There is mild loss of C5-C6 and C6-C7 disc heights with moderate ventral spondylosis from C3-C4 through C6-C7 disc levels. No visible acute fracture, dislocation or lytic process seen. The paravertebral soft tissues are normal. XR/XR cervical spine 2V IMPRESSION: Moderate ventral spondylosis C3-C4, C4-C5, C5-C6 and C6-C7 disc levels with no visible acute fracture or dislocation seen.
--- NOTE | ~2022-08-05 | XR_ITS ---
EXAMINATION: XR SHOULDER, LEFT CLINICAL INFORMATION: Pain in left shoulder. COMPARISON: X-ray of the left shoulder December 2017. TECHNIQUE: AP external rotation, Grashey, scapular Y, and axillary views of the left shoulder. FINDINGS: There is [id number] hypertrophic osteoarthritis of the acromioclavicular joint. This has progressed compared to prior. There is a subacromial spur anteriorly without change. Glenohumeral joint normal. Surrounding bone and soft tissues are unremarkable. XR/XR shoulder LT min 2V IMPRESSION: [id number]-[id number] osteoarthritis of the acromioclavicular joint with degenerative changes progressing compared with the 2018 examination.
== END 2022-08-05 14:59 | disposition home or self-care (01) ==
LOC: HO.XRAY 14:58
PROVIDERS: PCP Internal Medicine; Visit Provider Internal Medicine
DX: M54.2 Cervicalgia (principal); M25.512 Pain in left shoulder; V89.2XXA Person injured in unspecified motor-vehicle accident, traffic, initial encounter
CPT/HCPCS: 72040; 73030

== ENCOUNTER 2022-10-13 14:00 | Outpatient (RCR) | payer OTHER, SELFPAY ==
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
--- NOTE | 2022-11-18 10:11 | MHC.PT.DC ---
[facility] [place] Office [place] Office [place] Office [address] Nelia Duff [address] [phone] F: [phone] F: [phone] F: [phone] F: [phone] Physical Therapy Discharge Report Diagnosis: pain in L shoulder Date of Surgery: Date of Evaluation: 08/25/22 Date of Discharge: 10/13/22 Treatments to Date: 12 Cancellations to Date: 0 No Shows to Date: 0 Discharge Status: Achieved Goals Improved Function Independent with HEP Discharge Summary: He has made good progress with full shoulder AROM and less pain. He still has some underlying cervical pain but has improved since initial evaluation. D/c to I HEP Electronically signed by: Ness Summers PT DPT Please sign and return to therapist. Thank you for your referral.
== END 2022-11-18 10:11 | disposition home or self-care (01) ==
LOC: HO.PT 14:00
PROVIDERS: PCP Internal Medicine; Visit Provider Internal Medicine
DX: M25.512 Pain in left shoulder (principal)
CPT/HCPCS: 97110; 97140; 97162

== ENCOUNTER 2022-10-29 09:16 | Outpatient (REF) | payer OTHER, SELFPAY ==
[2022-11-04 11:58] LABS: Testosterone, Total 572 ng/dL (250-1100)
== END 2022-10-29 09:17 | disposition home or self-care (01) ==
LOC: HO.LAB 09:16
PROVIDERS: PCP Internal Medicine; Visit Provider Urology
DX: Z12.5 Encounter for screening for malignant neoplasm of prostate (principal); E29.1 Testicular hypofunction; N13.8 Other obstructive and reflux uropathy; N40.1 Benign prostatic hyperplasia with lower urinary tract symptoms
CPT/HCPCS: 36415; 84153; 84403; 85014

== ENCOUNTER 2022-12-03 15:23 | Outpatient (REF) | payer OTHER, SELFPAY ==
[2022-12-03 16:14] LABS: COVID-19 Test Negative (Negative); IDNOW Serial# 16C4AD1C
== END 2022-12-03 15:24 | disposition home or self-care (01) ==
LOC: HO.LAB 15:23
PROVIDERS: Visit Provider Internal Medicine
DX: Z20.822 Contact with and (suspected) exposure to COVID-19 (principal)
CPT/HCPCS: 87635; C9803

== ENCOUNTER 2022-12-30 15:00 | Outpatient (RCR) | payer OTHER, SELFPAY ==
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
--- NOTE | 2023-01-04 12:12 | MHC.PT.DC ---
[facility] [place] Office [place] Office [place] Office [address] Nelia Duff [address] [phone] F: [phone] F: [phone] F: [phone] F: [phone] Physical Therapy Discharge Report Diagnosis: Cervicalgia Date of Surgery: N/A Date of Evaluation: 11/03/22 Date of Discharge: 01/04/23 Treatments to Date: 12 Cancellations to Date: 1 No Shows to Date: 0 Discharge Status: Improved Function Independent with HEP Recommend MD Follow-up Discharge Summary: Pt was seen for skilled PT from 11/03/22-12/30/22. His last attended PT session was 12/30/22. Pt has made progress since SOC. He has met his STGs and made good progress toward his LTGs. He improved his score on Neck Pain Disability Index Questionnaire from 30/50 on initial PT evaluation to 13/50 at D/C. He continues to have soft tissue restrictions and pain throughout his L side of his neck, however it has improved since SOC. Pt is I with HEP. Pt is being D/C from skilled PT as he has reached functional plateau. He has printed copy of HEP. I recommend he perform HEP consistently for a few weeks and follow up with MD if pain persists. Pt is being D/C from skilled PT at this time. Electronically signed by: Radha Mccrary, PT, DPT Please sign and return to therapist. Thank you for your referral.
== END 2023-01-04 12:12 | disposition home or self-care (01) ==
LOC: HO.PT 15:00
PROVIDERS: PCP Internal Medicine; Visit Provider Internal Medicine
DX: M54.2 Cervicalgia (principal)
CPT/HCPCS: 97110; 97140; 97162; 97530

== ENCOUNTER 2023-02-02 17:30 | Emergency (ER) | payer OTHER, SELFPAY ==
--- NOTE | ~2023-02-02 | CT_ITS ---
EXAMINATION: CT PELVIS WITH CONTRAST CLINICAL INFORMATION: Buttock abscess. Likely deep space infection COMPARISON: 04/08/2018 CT scan of the abdomen and 01/18/2018 CT of the abdomen and pelvis TECHNIQUE: Helical scanning was performed with submillimeter collimation through the pelvis with the use of oral contrast and during bolus intravenous injection of 85 mL of Omnipaque 350 intravenous contrast. Sagittal and coronal multiplanar 2-D reconstructions were obtained. This CT examination was performed using dose optimization techniques as appropriate, variously including the following: *Automated exposure control *Adjustment of mA and/or kV according to patient size (this includes techniques or standardized protocols for targeted exams where dose is matched to indication/reason for exam; i.e. extremities or head) *Use of iterative reconstruction technique DLP: 417 mGy-cm FINDINGS: PELVIS: Main finding of note is soft tissue gas in the posterior perineal space surrounding the midline intergluteal cleft left more so than right. There is associated skin thickening in this location and stranding to the subcutaneous fat. Overlying skin defect is suspected but this is difficult to evaluate due to the soft tissue gas. No radiopaque foreign body. The visualized median perianal perirectal region is grossly unremarkable. I do not see any perirectal inflammatory change. Few scattered colonic diverticula are incidentally noted. Bladder is unremarkable. Prostate is unremarkable. No bulky pelvic sidewall or inguinal adenopathy. OSSEOUS STRUCTURES: No acute fracture dislocation. Degenerative changes within bilateral hips and visualized lower lumbar spine. No bony destructive lesions. CT/CT pelvis w IV con IMPRESSION: Main finding of note is soft tissue gas in the posterior perineal space surrounding the midline intergluteal cleft subcutaneous region left more so than right. There is associated skin thickening and stranding to the subcutaneous fat in this location. Overlying skin defect is suspected but this is difficult to evaluate due to the soft tissue gas. Kory's gangrene could present with this appearance and clinical correlation is needed. I do not appreciate any discrete drainable fluid collection. No radiopaque foreign body. This critical result was discussed with Dr. Sue at 02/02/2023 10:38 PM and it was ascertained that the content and urgency of the report was understood at the time of direct communication.
--- NOTE | 2023-02-02 17:33 | ED.SKABFB ---
HPI - Skin/Abscess/Foreign Bdy General Chief complaint: Skin/Abscess/Foreign Body <Sima Mejia CNP - Last Filed: 02/02/23 17:38> Stated complaint: Abscess <Sima Mejia CNP - Last Filed: 02/02/23 17:38> Time Seen by Provider: 02/02/23 18:55 <Sima Mejia CNP - Last Filed: 02/02/23 17:38> Source: patient <Dhiraj Sue DO - Last Filed: 02/02/23 21:49> Mode of arrival: ambulatory <DO Mannie Serrato Last Filed: 02/02/23 21:49> Limitations: no limitations <DO Mannie Serrato Last Filed: 02/02/23 21:49> History of Present Illness HPI narrative: 52-year-old noncompliant diabetic presents to emergency department with pain to his buttocks and drainage for 3 weeks. Patient states I thought I stepped in dog poop 3 weeks ago went to the bathroom noticed that the abscess and open and was draining in and so healing his pants and underwear. States he was at work at that time. Patient states that since then the patient has had continued issues with drainage and pain to the area. He has had boils to his armpits in the past he denies any fever he states he has been trying to keep it clean but do she would location as he has had continued issues. <Dhiraj Sue DO - Last Filed: 02/02/23 21:49> MD complaint: abscess/boil <Dhiraj Sue DO - Last Filed: 02/02/23 21:49> Related Data Home medications: Home Medications Medication Instructions Recorded Confirmed dulaglutide 1.5 mg/0.5 mL 1.5 mg subcut SA 02/02/23 02/02/23 subcutaneous pen injector (Trulicity) Previous Rx's Medication Instructions Recorded blood sugar diagnostic (FreeStyle #3 boxes 06/17/21 Lite Strips) lisinopril 2.5 mg tablet 2.5 mg PO DAILY 90 days #90 tabs 08/11/22 levothyroxine 150 mcg tablet 150 mcg PO DAILY 90 days #90 tabs 09/11/22 imipramine HCl 10 mg tablet 10 mg PO BEDTIME 90 days #90 tabs 11/04/22 pioglitazone 45 mg tablet 45 mg PO DAILY #30 tabs 11/10/22 testosterone 20.25 mg/1.25 gram 4 pump topical DAILY 28 days #150 11/13/22 (1.62 %) transdermal gel pump grams simvastatin 20 mg tablet 20 mg PO BEDTIME 90 days #90 tabs 12/24/22 omeprazole 20 mg capsule,delayed 20 mg PO DAILY 90 days #90 caps 12/30/22 release blood-glucose meter (FreeStyle #1 ea 01/15/23 Lite Meter kit) insulin glargine 100 unit/mL (3 65 unit (0.65 mL) subcut DAILY 90 01/15/23 mL) subcutaneous pen ( #15 mL Solostar U-100 Insulin) <Sima Mejia CNP - Last Filed: 02/02/23 17:38> Allergies/Adverse reactions: Allergies Allergy/AdvReac Type Severity Reaction Status Date / Time dog dander Allergy Intermediate Ithcy Verified 01/15/23 08:51 metformin [METFORMIN] Allergy Intermediate LACTIC Verified 01/15/23 08:51 ACIDOSIS nut - unspecified Allergy Intermediate hives/throat Verified 01/15/23 08:51 constriction sunflower seeds Allergy Intermediate throat Uncoded 01/15/23 08:51 itchiness <Sima Mejia CNP - Last Filed: 02/02/23 17:38> Review of Systems Review of Systems: Review of systems: General: Patient denies any fever chills recent illness or falls Musculoskeletal: Denies back pain or body aches or other injuries HEENT: denies headache, runny nose, ear pain Respiratory: denies shortness of breath, cough Cardiovascular: no chest pain or palpitations : denies dysuria, frequency Abdomen: no nausea vomiting denies abdominal pain Extremities: no swelling, no pain Skin: no diaphoresis <Dhiraj Sue DO - Last Filed: 02/02/23 21:49> Yes all other systems are reviewed and are negative <Dhiraj Sue DO - Last Filed: 02/02/23 21:49> [facility] Past Medical History Medical History: Medical History Annual physical exam Asthma Autoimmune thyroiditis Benign prostatic hyperplasia with lower urinary tract symptoms BPH (benign prostatic hyperplasia) Diabetic foot GERD (gastroesophageal reflux disease) Hypercholesterolemia Hypertension Hypogonadism in male Legally blind in left eye, as defined in [place] Neuropathy Obesity (BMI 30-39.9) Tachycardia Type 2 diabetes mellitus with hyperglycemia <Sima Mejia CNP - Last Filed: 02/02/23 17:38> Surgical History: Surgical History Strabismus <Sima Mejia CNP - Last Filed: 02/02/23 17:38> Family History Family History: Family History Father No problems noted. Mother Skin cancer Hypertension Diabetes Breast cancer in situ Maternal Grandmother Diabetes Hypertension Heart attack Breast cancer in situ Maternal Grandfather Stroke Diabetes Hypertension Heart attack Maternal Aunt Cancer Breast cancer in situ Sister No problems noted. Brother No problems noted. Family/Other Mental health disorder <Sima Mejia CNP - Last Filed: 02/02/23 17:38> Social History Social History: Social History Household Members: Family Housing: House Do you presently have visiting nurse or other home services: No Alcohol intake: current Alcohol intake frequency: holidays/special occasions only Alcohol type: beer and hard liquor Patient Tobacco Use Status: Never used Tobacco Tobacco use type: Cigarette e-Cigarette/Vaping Use: Never Used Second Hand Smoke Exposure: No Advance Directives: No Advance Directives Information Provided: No service: No (WENT FOR BASIC TRAINING AND THEN LEFT) Current occupational status: other Cognitive needs: No Hearing needs: No Vision needs: Yes <Sima Mejia CNP - Last Filed: 02/02/23 17:38> Physical Exam Vital Signs: Vital Signs: Last Vital Signs Temp 98.5 F 02/02/23 17:36 Pulse 118 H 02/02/23 17:36 Resp 18 02/02/23 17:36 BP 153/85 H 02/02/23 17:36 Pulse Ox 97 02/02/23 17:36 O2 Del Method 02/02/23 17:36 BMI result Body Mass Index 35.0 <Smia Mejia CNP - Last Filed: 02/02/23 17:38> Vital Signs: Last Vital Signs Temp 98.5 F 02/02/23 17:36 Pulse 118 H 02/02/23 17:36 Resp 18 02/02/23 17:36 BP 153/85 H 02/02/23 17:36 Pulse Ox 97 02/02/23 17:36 O2 Del Method 02/02/23 17:36 BMI result Body Mass Index 35.0 <Dhiraj Sue DO - Last Filed: 02/02/23 21:49> General: Well-appearing well-nourished in no signs of distress HEENT: Normocephalic atraumatic Neck: No signs of JVD, no masses no tenderness or lymphadenopathy Cardiovascular: Regular rate and rhythm Respiratory: Clear to auscultation bilaterally Abdomen: Soft nontender no masses rectal area both sides with open wounds concern for desquamation of the right buttocks an abscess to left buttocks as well indurated red swollen likely Deep abscess. Extremities: Normal pedal pulses no signs of edema Skin: Dry warm no rashes Back: No tenderness full ROM <Dhiraj Sue DO - Last Filed: 02/02/23 21:49> Skin: Other: <Dhiraj Sue DO - Last Filed: 02/02/23 21:49> Course Course Course Narrative: This is an RME: Additional HPI, ROS, PE not included below will be deferred to primary provider. Patient is a 52-year-old male with hx of diabetes who presents emergency department for evaluation of a cyst to left buttock. It has been draining on its own for the past 3-4 weeks but continues to increase in size and pain. Has been applying warm compresses. reports single episode of fever 2 nights ago, responded to aleve. Reports history of similar abscess in the past to axillary region. <Sima Mejia, KASSANDRA - Last Filed: 02/02/23 17:38> Medications Administered Generic Name Dose Route Start Last Admin Trade Name Freq PRN Reason Stop Dose Admin Vancomycin HCl 2,000 mg in 520 mls @ 260 mls/hr 02/02/23 20:00 02/02/23 21:04 Vancomycin/Ns IV 02/02/23 21:59 260 mls/hr ONCE ONE Administration Discontinued Medications Generic Name Dose Route Start Last Admin Trade Name Freq PRN Reason Stop Dose Admin Piperacillin Sod/Tazobactam 100 mls @ 200 mls/hr 02/02/23 19:33 02/02/23 21:21 Sod 4.5 gm/ Sodium Chloride IV 02/02/23 20:02 Infused ONCE ONE Infusion Sodium Chloride 1,000 mls @ 999 mls/hr 02/02/23 19:45 02/02/23 21:21 Ns IV 02/02/23 20:45 Infused .Q1H1M ZION Infusion <Sima Mejia LOADING MACHINE OPERATOR HELPER - Last Filed: 02/02/23 17:38> Medications Administered Generic Name Dose Route Start Last Admin Trade Name Freq PRN Reason Stop Dose Admin Vancomycin HCl 2,000 mg in 520 mls @ 260 mls/hr 02/02/23 20:00 02/02/23 21:04 Vancomycin/Ns IV 02/02/23 21:59 260 mls/hr ONCE ONE Administration Discontinued Medications Generic Name Dose Route Start Last Admin Trade Name Freq PRN Reason Stop Dose Admin Piperacillin Sod/Tazobactam 100 mls @ 200 mls/hr 02/02/23 19:33 02/02/23 21:21 Sod 4.5 gm/ Sodium Chloride IV 02/02/23 20:02 Infused ONCE ONE Infusion Sodium Chloride 1,000 mls @ 999 mls/hr 02/02/23 19:45 02/02/23 21:21 Ns IV 02/02/23 20:45 Infused .Q1H1M ZION Infusion <Dhiraj Sue DO - Last Filed: 02/02/23 21:49> Medical Decision Making Medical Decision Making MDM Narrative: Extremities face infection send patient for CT scans with the patient vancomycin Zosyn I will notify surgery Due to the extent of the injuries. Still pendig CT. Dr. Coello is at the bedside and opening some of the abscess tissue. Yamile still will require admission at this time pending CT. Patient was debrided at the bedside. yamile will be admitted to medicine here and likely another surgeon will follow up with more wound care. <Dhiraj Sue DO - Last Filed: 02/02/23 21:49> Differential Diagnosis Differential Diagnoses: The differential diagnosis associated with the presentation includes <Dhiraj Sue DO - Last Filed: 02/02/23 21:49> sepsis abdomen gangrenosum recurrent abscess deep space infection <Dhiraj Sue DO - Last Filed: 02/02/23 21:49> Admission/Observation Consideration of admission/observation: Escalation of care including admission/observation considered <Dhiraj Sue DO - Last Filed: 02/02/23 21:49> Consult Healthcare Provider Management of the patient was discussed with: Hospitalist and General Manager [employer] <Dhiraj Sue DO - Last Filed: 02/02/23 21:49> I discussed this case with Dr. Coello who agreed with workup CT scan lactic acid with his blood sugar being elevated is in his HGB A1c being 13.4 he wanted the patient to be admitted to Medicine and he will consult. I spoke withe Dr. Aden from the hospitalist service who felt this was best treated by surgery. <Dhiraj Sue DO - Last Filed: 02/02/23 21:49> Lab Data MDM Lab Attestation statement: I reviewed the patient's lab results. <Dhiraj Sue DO - Last Filed: 02/02/23 21:49> Result Diagrams: 02/02/23 17:45 02/02/23 17:45 <Sima Mejai LOADING MACHINE OPERATOR HELPER - Last Filed: 02/02/23 17:38> Labs: Lab Results 02/02/23 02/02/23 02/02/23 Range/Units 17:45 17:45 19:15 WBC 9.4 (4.8-10.8) X10*3/uL RBC 4.30 L (4.60-5.80) X10*6/uL Hgb 11.7 L (14.0-18.0) g/dl Hct 35.9 L (42.0-52.0) % MCV 83.5 (80.0-98.0) fL MCH 27.2 (27.0-33.0) pg MCHC 32.6 (31.0-36.0) g/dl RDW 13.1 (11.0-16.0) % Plt Count 469 H D (160-400) X10*3/uL MPV 9.7 (9.4-12.4) fL Immature Gran % (Auto) 0.4 (0.0-0.4) % Neut % (Auto) 73.6 H (45-73) % Lymph % (Auto) 15.1 L (20-40) % Kings % (Auto) 8.7 (2-11) % Eos % (Auto) 1.9 (0-4) % Baso % (Auto) 0.3 (0-2) % Lymph # (Auto) 1.4 (1.2-4.9) X10*3/uL Kings # (Auto) 0.8 (0.1-1.2) X10*3/uL Eos # (Auto) 0.2 (0.0-0.4) X10*3/uL Baso # (Auto) 0.0 (0.0-0.2) X10*3/uL Abs Immat Gran (auto) 0.04 H (0.00-0.03) X10*3/uL Absolute Neuts (auto) 6.9 (2.0-8.3) x10*3/uL Absolute Nucleated RBC 0.000 (0.0-0.012) X10*3/uL Nucleated RBC % (auto) 0.0 (0.0-0.2) /100WBC Sodium 141 (135-145) mmol/L Potassium 4.4 (3.3-5.1) mmol/L Chloride 100 (96-108) mmol/L Carbon Dioxide 27 (22-29) mmol/L Anion Gap 18 (12-20) BUN 14 (9-16) mg/dL Creatinine 1.11 (0.5-1.4) mg/dL Estim Creat Clear Calc 88.4 Estimated GFR > 60 POC Glucose 301 H (60-115) mg/dL Random Glucose 318 H (60-115) mg/dL Lactic Acid (0.5-2.0) mmol/L Calcium 8.6 (8.4-10.2) mg/dL Total Bilirubin 0.7 (0.0-1.0) mg/dL AST 17 (5-37) U/L ALT 12 (0-40) U/L Alkaline Phosphatase 118 H (39-117) U/L Total Protein 6.9 (6.5-8.0) g/dL Albumin 3.0 L (3.5-5.0) g/dL COVID-19 (LUIS) (Negative) COVID-19 Clin Com 02/02/23 02/02/23 Range/Units 20:06 20:06 WBC (4.8-10.8) X10*3/uL RBC (4.60-5.80) X10*6/uL Hgb (14.0-18.0) g/dl Hct (42.0-52.0) % MCV (80.0-98.0) fL MCH (27.0-33.0) pg MCHC (31.0-36.0) g/dl RDW (11.0-16.0) % Plt Count (160-400) X10*3/uL MPV (9.4-12.4) fL Immature Gran % (Auto) (0.0-0.4) % Neut % (Auto) (45-73) % Lymph % (Auto) (20-40) % Kings % (Auto) (2-11) % Eos % (Auto) (0-4) % Baso % (Auto) (0-2) % Lymph # (Auto) (1.2-4.9) X10*3/uL Kings # (Auto) (0.1-1.2) X10*3/uL Eos # (Auto) (0.0-0.4) X10*3/uL Baso # (Auto) (0.0-0.2) X10*3/uL Abs Immat Gran (auto) (0.00-0.03) X10*3/uL Absolute Neuts (auto) (2.0-8.3) x10*3/uL Absolute Nucleated RBC (0.0-0.012) X10*3/uL Nucleated RBC % (auto) (0.0-0.2) /100WBC Sodium (135-145) mmol/L Potassium (3.3-5.1) mmol/L Chloride (96-108) mmol/L Carbon Dioxide (22-29) mmol/L Anion Gap (12-20) BUN (9-16) mg/dL Creatinine (0.5-1.4) mg/dL Estim Creat Clear Calc Estimated GFR POC Glucose (60-115) mg/dL Random Glucose (60-115) mg/dL Lactic Acid 1.5 (0.5-2.0) mmol/L Calcium (8.4-10.2) mg/dL Total Bilirubin (0.0-1.0) mg/dL AST (5-37) U/L ALT (0-40) U/L Alkaline Phosphatase (39-117) U/L Total Protein (6.5-8.0) g/dL Albumin (3.5-5.0) g/dL COVID-19 (LUIS) Negative (Negative) COVID-19 Clin Com See Note <Sima Mejia, LOADING MACHINE OPERATOR HELPER - Last Filed: 02/02/23 17:38> Lab Results 02/02/23 02/02/23 02/02/23 Range/Units 17:45 17:45 19:15 WBC 9.4 (4.8-10.8) X10*3/uL RBC 4.30 L (4.60-5.80) X10*6/uL Hgb 11.7 L (14.0-18.0) g/dl Hct 35.9 L (42.0-52.0) % MCV 83.5 (80.0-98.0) fL MCH 27.2 (27.0-33.0) pg MCHC 32.6 (31.0-36.0) g/dl RDW 13.1 (11.0-16.0) % Plt Count 469 H D (160-400) X10*3/uL MPV 9.7 (9.4-12.4) fL Immature Gran % (Auto) 0.4 (0.0-0.4) % Neut % (Auto) 73.6 H (45-73) % Lymph % (Auto) 15.1 L (20-40) % Kings % (Auto) 8.7 (2-11) % Eos % (Auto) 1.9 (0-4) % Baso % (Auto) 0.3 (0-2) % Lymph # (Auto) 1.4 (1.2-4.9) X10*3/uL Kings # (Auto) 0.8 (0.1-1.2) X10*3/uL Eos # (Auto) 0.2 (0.0-0.4) X10*3/uL Baso # (Auto) 0.0 (0.0-0.2) X10*3/uL Abs Immat Gran (auto) 0.04 H (0.00-0.03) X10*3/uL Absolute Neuts (auto) 6.9 (2.0-8.3) x10*3/uL Absolute Nucleated RBC 0.000 (0.0-0.012) X10*3/uL Nucleated RBC % (auto) 0.0 (0.0-0.2) /100WBC Sodium 141 (135-145) mmol/L Potassium 4.4 (3.3-5.1) mmol/L Chloride 100 (96-108) mmol/L Carbon Dioxide 27 (22-29) mmol/L Anion Gap 18 (12-20) BUN 14 (9-16) mg/dL Creatinine 1.11 (0.5-1.4) mg/dL Estim Creat Clear Calc 88.4 Estimated GFR > 60 POC Glucose 301 H (60-115) mg/dL Random Glucose 318 H (60-115) mg/dL Lactic Acid (0.5-2.0) mmol/L Calcium 8.6 (8.4-10.2) mg/dL Total Bilirubin 0.7 (0.0-1.0) mg/dL AST 17 (5-37) U/L ALT 12 (0-40) U/L Alkaline Phosphatase 118 H (39-117) U/L Total Protein 6.9 (6.5-8.0) g/dL Albumin 3.0 L (3.5-5.0) g/dL COVID-19 (LUIS) (Negative) COVID-19 Clin Com 02/02/23 02/02/23 Range/Units 20:06 20:06 WBC (4.8-10.8) X10*3/uL RBC (4.60-5.80) X10*6/uL Hgb (14.0-18.0) g/dl Hct (42.0-52.0) % MCV (80.0-98.0) fL MCH (27.0-33.0) pg MCHC (31.0-36.0) g/dl RDW (11.0-16.0) % Plt Count (160-400) X10*3/uL MPV (9.4-12.4) fL Immature Gran % (Auto) (0.0-0.4) % Neut % (Auto) (45-73) % Lymph % (Auto) (20-40) % Kings % (Auto) (2-11) % Eos % (Auto) (0-4) % Baso % (Auto) (0-2) % Lymph # (Auto) (1.2-4.9) X10*3/uL Kings # (Auto) (0.1-1.2) X10*3/uL Eos # (Auto) (0.0-0.4) X10*3/uL Baso # (Auto) (0.0-0.2) X10*3/uL Abs Immat Gran (auto) (0.00-0.03) X10*3/uL Absolute Neuts (auto) (2.0-8.3) x10*3/uL Absolute Nucleated RBC (0.0-0.012) X10*3/uL Nucleated RBC % (auto) (0.0-0.2) /100WBC Sodium (135-145) mmol/L Potassium (3.3-5.1) mmol/L Chloride (96-108) mmol/L Carbon Dioxide (22-29) mmol/L Anion Gap (12-20) BUN (9-16) mg/dL Creatinine (0.5-1.4) mg/dL Estim Creat Clear Calc Estimated GFR POC Glucose (60-115) mg/dL Random Glucose (60-115) mg/dL Lactic Acid 1.5 (0.5-2.0) mmol/L Calcium (8.4-10.2) mg/dL Total Bilirubin (0.0-1.0) mg/dL AST (5-37) U/L ALT (0-40) U/L Alkaline Phosphatase (39-117) U/L Total Protein (6.5-8.0) g/dL Albumin (3.5-5.0) g/dL COVID-19 (LUIS) Negative (Negative) COVID-19 Clin Com See Note <Dhiraj Sue DO - Last Filed: 02/02/23 21:49> Discharge Plan Discharge Clinical Impression: Abscess of anal and rectal regions, Diabetes <Sima Mejia CNP - Last Filed: 02/02/23 17:38> Patient Disposition: Admitted As Inpatient <Sima Mejia CNP - Last Filed: 02/02/23 17:38>
[2023-02-02 17:36] VITALS: BP 153/85; PULSE 118; RESP 18; TEMP 36.9; O2SAT 97; BMI 35.0
[2023-02-02 17:50] LABS: MANUAL DIFF FLAG NO
[2023-02-02 18:00] LABS: Basophils Percent Auto 0.3 % (0-2); Eosinophils Absolute Auto 0.2 X10*3/uL (0.0-0.4); Eosinophils Percent Auto 1.9 % (0-4); Hematocrit 35.9 % (42.0-52.0); Hemoglobin 11.7 g/dl (14.0-18.0); Imm Gran Abs Auto 0.04 X10*3/uL (0.00-0.03); Imm Gran Pct Auto 0.4 % (0.0-0.4); Lymphocytes Absolute Auto 1.4 X10*3/uL (1.2-4.9); Lymphocytes Percent Auto 15.1 % (20-40); Mean Corpuscular HGB Conc 32.6 g/dl (31.0-36.0); Mean Corpuscular Hemoglobin 27.2 pg (27.0-33.0); Mean Corpuscular Volume 83.5 fL (80.0-98.0); Mean Platelet Volume 9.7 fL (9.4-12.4); Monocytes Absolute Auto 0.8 X10*3/uL (0.1-1.2); Monocytes Percent Auto 8.7 % (2-11); Neutrophils Absolute Auto 6.9 x10*3/uL (2.0-8.3); Neutrophils Percent Auto 73.6 % (45-73); Platelet Count 469 X10*3/uL (160-400); Red Cell Distribution Width 13.1 % (11.0-16.0); White Blood Count 9.4 X10*3/uL (4.8-10.8)
[2023-02-02 18:11] LABS: Alanine Aminotransferase 12 U/L (0-40); Alkaline Phosphatase 118 U/L (39-117); Anion Gap 18 (12-20); Aspartate Amino Transferase 17 U/L (5-37); Bilirubin Total 0.7 mg/dL (0.0-1.0); Blood Urea Nitrogen 14 mg/dL (9-16); Calcium 8.6 mg/dL (8.4-10.2); Carbon Dioxide 27 mmol/L (22-29); Chloride 100 mmol/L (96-108); Creatinine Clr Calc Pharmacy 88.4; Estimated Glomerular Filt Rate > 60; Glucose Random 318 mg/dL (60-115); Potassium 4.4 mmol/L (3.3-5.1); Sodium 141 mmol/L (135-145); Total Protein 6.9 g/dL (6.5-8.0)
[2023-02-02 19:19] LABS: Glucose, Whole Blood 301 mg/dL (60-115)
--- NOTE | 2023-02-02 20:00 | PHA.MEDREC ---
Pharmacy Consult ? Medication Reconciliation Pharmacy has completed the medication reconciliation.
--- NOTE | 2023-02-02 20:14 | PM.CNGS ---
History of Present Illness Consult details Consult date: 02/02/23 Requesting physician: Dhiraj Sue Narrative: Patient is a 52-year-old gentleman with poorly controlled type 2 diabetes with a last hemoglobin A1c of 13.4 several weeks ago. Patient is seen at the request of Dr. 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 Patient reports that these infections started about 3 weeks ago. He notes that he saw his PCP and complained of having an infection at that time, however, the focus on trying to address is poorly controlled hemoglobin A1c was discussed, according to the patient. Patient reports his last bowel movement was 2 days ago and he denies any abdominal pain. The patient is noted malodorous drainage for the past 3 weeks. Review of Systems Review of Systems: Yes all other systems are reviewed and are negative Constitutional: Constitutional: Reports as per [facility] Past Medical History Medical History Annual physical exam Asthma Autoimmune thyroiditis Benign prostatic hyperplasia with lower urinary tract symptoms BPH (benign prostatic hyperplasia) Diabetic foot GERD (gastroesophageal reflux disease) Hypercholesterolemia Hypertension Hypogonadism in male Legally blind in left eye, as defined in [place] Neuropathy Obesity (BMI 30-39.9) Tachycardia Type 2 diabetes mellitus with hyperglycemia Family History Family History Father No problems noted. Mother Skin cancer Hypertension Diabetes Breast cancer in situ Maternal Grandmother Diabetes Hypertension Heart attack Breast cancer in situ Maternal Grandfather Stroke Diabetes Hypertension Heart attack Maternal Aunt Cancer Breast cancer in situ Sister No problems noted. Brother No problems noted. Family/Other Mental health disorder Surgical History Surgical History Strabismus Social History Social History Household Members: Family Housing: House Do you presently have visiting nurse or other home services: No Alcohol intake: current Alcohol intake frequency: holidays/special occasions only Alcohol type: beer and hard liquor Patient Tobacco Use Status: Never used Tobacco Tobacco use type: Cigarette e-Cigarette/Vaping Use: Never Used Second Hand Smoke Exposure: No Advance Directives: No Advance Directives Information Provided: No service: No (WENT FOR BASIC TRAINING AND THEN LEFT) Current occupational status: other Cognitive needs: No Hearing needs: No Vision needs: Yes Meds Allergies Allergy/AdvReac Type Severity Reaction Status Date / Time dog dander Allergy Intermediate Ithcy Verified 01/15/23 08:51 metformin [METFORMIN] Allergy Intermediate LACTIC Verified 01/15/23 08:51 ACIDOSIS nut - unspecified Allergy Intermediate hives/throat Verified 01/15/23 08:51 constriction sunflower seeds Allergy Intermediate throat Uncoded 01/15/23 08:51 itchiness Active Medications: Current Medications Sodium Chloride (Ns) 1,000 mls @ 999 mls/hr IV .Q1H1M ZION Stop: 02/02/23 20:45 Vancomycin HCl (Vancomycin/Ns) 2,000 mg in 520 mls @ 260 mls/hr IV ONCE ONE Stop: 02/02/23 21:59 Pharmacy Consult (Consult Rx Perform Med Rec) 1 each MISCELLANE ONCE PRN PRN Reason: Consult order Home Medications Medication Instructions Recorded Confirmed Last Taken Type dulaglutide 1.5 mg/0.5 mL 1.5 mg subcut SA 02/02/23 02/02/23 01/30/23 History subcutaneous pen injector (Trulicity) Physical Exam Vital Signs: Vital Signs: Last Vital Signs Temp 98.5 F 02/02/23 17:36 Pulse 118 H 02/02/23 17:36 Resp 18 02/02/23 17:36 BP 153/85 H 02/02/23 17:36 Pulse Ox 97 02/02/23 17:36 O2 Del Method 02/02/23 17:36 BMI result Body Mass Index 35.0 On exam, the patient is nontoxic He is in surprisingly good spirits NC/AT, PERRLA, EOMI He is in no acute respiratory distress Abdomen is obese, soft and nontender Patient is examined in left lateral decubitus position: In the patient's right medial buttock, a frankly necrotic portion of skin measuring approximately 15 x 7 cm and triangular shaped is sloughing, full-thickness with the gluteus muscle and subcu tissue deep; the patient is left medial buttock is tense from the base of the scrotum to the lateral mid buttock with breezy purulence. The left buttock is tender while the eschar and right buttock is insensate secondary to necrosis. The perianal tissue is surrounded by an area approximately 20 cm in diameter of left buttock abscess/infection and right skin necrosis. Results Labs 02/02/23 17:45 02/02/23 17:45 Labs: Abnormal lab results 02/02/23 02/02/23 02/02/23 Range/Units 17:45 17:45 19:15 RBC 4.30 L (4.60-5.80) X10*6/uL Hgb 11.7 L (14.0-18.0) g/dl Hct 35.9 L (42.0-52.0) % Plt Count 469 H D (160-400) X10*3/uL Neut % (Auto) 73.6 H (45-73) % Lymph % (Auto) 15.1 L (20-40) % Abs Immat Gran (auto) 0.04 H (0.00-0.03) X10*3/uL POC Glucose 301 H (60-115) mg/dL Random Glucose 318 H (60-115) mg/dL Alkaline Phosphatase 118 H (39-117) U/L Albumin 3.0 L (3.5-5.0) g/dL Short CBC 02/02/23 Range/Units 17:45 WBC 9.4 (4.8-10.8) X10*3/uL Hgb 11.7 L (14.0-18.0) g/dl Hct 35.9 L (42.0-52.0) % Plt Count 469 H D (160-400) X10*3/uL BMP 02/02/23 17:45 Sodium 141 Potassium 4.4 Chloride 100 Carbon Dioxide 27 BUN 14 Creatinine 1.11 Calcium 8.6 Liver Function 02/02/23 Range/Units 17:45 Total Bilirubin 0.7 (0.0-1.0) mg/dL AST 17 (5-37) U/L ALT 12 (0-40) U/L Alkaline Phosphatase 118 H (39-117) U/L Albumin 3.0 L (3.5-5.0) g/dL Lactic acid is normal at 1.[address] scan - pelvis: report reviewed and image reviewed Additional studies: CT is c/w Kory's gangrene Assessment and Plan (1) Abscess of anal and rectal regions: Status: Acute (2) Diabetes: Status: Acute (3) Poorly controlled type 2 diabetes mellitus: Status: Acute (4) Renal insufficiency: Status: Acute (5) Hypercholesterolemia: Status: Acute (6) Kory gangrene: Status: Acute Plan Explained to the patient and spoke with Dr. Sue that the CT is needed to help direct the patient's care. While his labs are not particularly worrisome at this time, the extent of the perianal infection is such that the patient may require colostomy and more aggressive debridement and may require transfer to a larger institution for a higher level of care since a diverting colostomy may be required, in addition to aggressive perianal debridement that may lead to permanent incontinence. CT is c/w Kory's gangrene & the extent of the infection on clinical exam requires a higher level of care & I would recommend transfer. Given the poorly controlled diabetes and elevated blood glucose, consultation to the hospitalist for medical management is recommended. Time Spent With Patient Time: Total time managing care of this patient today ____ minutes. Procedures Date of Service Date of Service: 02/02/23 Abscess I/D Consent for Procedure: Elective - informed consent obtained Site: other Side (if applicable): left Anesthetic used: with epi Technique: incised with #11 blade Amount of fluid (mL): 30 Irrigation: Yes Packing used?: iodoform Additional comments: The patient has a large spontaneously draining left buttock abscess and to help with his pain and diagnosis, I recommended incision and drainage. The inherent risks of bleeding, infection, need for additional procedure and possible need for transfer if CT demonstrate Kory's gangrene was reviewed and apparently understood. Verbal informed consent was obtained. The patient seemed understand his options and gave consent to proceed Patient's left buttock was prepped with Betadine and local infiltrated into the open, draining left buttock drainage site. A separate drainage site was also infiltrated anteriorly. An 11 blade was used to open the area and culture obtained with a sterile swab. 20 cc of irrigation/remaining local was used and iodoform packing placed. Patient tolerated the procedure well. The patient's right buttock was also prepped and the ischemic, frankly necrotic eschar sharply excised. The skin is full-thickness necrosis measuring approximately 15 x 7 cm and necrotic into the subcutaneous tissues. The area was dressed with 4x4s. CT of the abdomen and pelvis is pending
[2023-02-02] MEDS: Piperacillin Sodium/Tazobactam 4.5 GM in 0.9 % Sodium Chloride 100 ML IV (20:21)
[2023-02-02] MEDS: 0.9 % Sodium Chloride 1,000 ML 999 ML IV ×2 (20:21→23:21)
[2023-02-02 20:30] LABS: COVID-19 Test Negative (Negative); IDNOW Serial# BCCEAD1C; Lactic Acid 1.5 mmol/L (0.5-2.0)
--- NOTE | 2023-02-02 21:28 | PHA.PROG ---
Admission Date/Time: 02/02/23 Indication: SKIN/TISSUE Weight in k.605 kg Adjusted body weight in K.302 [place] body weight in K.1 Obesity Dosing Indication % IBW:35.1 Serum Creatinine - Last 168 Hours 02/02/23 17:45 Creatinine 1.11 Estimated CrCl and GFR - Last 168 Hours 02/02/23 17:45 Estim Creat Clear Calc 88.4 Estimated GFR > 60 Vancomycin Loading Dose: 2000 MG Current Vancomycin Dosing Regimen: 750 Q12H Vancomycin Monitoring using AUC goal of 400 - 600 range with trough as surrogate marker: EXPECTED AUC OF 477 AFTER 3RD DOSE Date and Time for next Vancomycin Level to be drawn: 02/04 @0700 Pharmacist Comments on Vancomycin Plan: DOSING DONE USING OBESE MODEL DUE TO BMI>30. SCr GOOD AT 1.11 BUT WILL CONTINUE TO MONITOR DAILY. Vancomycin dosing will take advantage of [employer] as a clinical decision support tool that uses Bayesian modeling to calculate individual patient's pharmacokinetic parameters and forecast the patient's drug concentration time course with the target goal AUC 24 range of 400 - 600 mg/L/hr.
[2023-02-02] MEDS: iohexoL 350 MG/ML 100 ML INFUS..BTL IV (21:54)
[2023-02-02 22:00] VITALS: BP 130/73; PULSE 107; RESP 16; TEMP 36.9; O2SAT 96
--- NOTE | 2023-02-02 23:12 | MHC.EDTECH ---
Call out to [facility] Transfer line @[phone] spoke to kiara who informed me [facility] is not accepting any medical transfers
--- NOTE | 2023-02-02 23:15 | MHC.EDTECH ---
Call out to [facility] @[phone] spoke to Kaycee who took demographics of patient FACE SHEET faxed @[phone]
--- NOTE | 2023-02-02 23:52 | MHC.EDTECH ---
Call out to [facility] @[phone] regarding ALS transport to [facility] ER ETA of 30 mins was given
--- NOTE | 2023-02-03 00:15 | MHC.EDTECH ---
PT bed linen soiled with wound drainage and urine. Pt 1x assisted with pericare. Pt bed pads/ linen changed. Pt given warm blankets and call paula placed in reach.
--- NOTE | 2023-02-03 00:30 | PC.NURSE ---
pt assessed, pt buttock wound debrided done by Surgeon, wound cleaned with NS
== END 2023-02-03 04:27 | disposition admitted as inpatient to this hospital (09) ==
PROVIDERS: Nurse Practitioner Family; Emergency Provider Student in an Organized Health Care Education/Training Program; PCP Internal Medicine
DX: K61.1 Rectal abscess (principal); N28.9 Disorder of kidney and ureter, unspecified; R50.9 Fever, unspecified; E78.00 Pure hypercholesterolemia, unspecified; R10.2 Pelvic and perineal pain; E11.65 Type 2 diabetes mellitus with hyperglycemia; Z20.822 Contact with and (suspected) exposure to COVID-19; Z20.828 Contact with and (suspected) exposure to other viral communicable diseases; Z79.899 Other long term (current) drug therapy; Z79.4 Long term (current) use of insulin
CPT/HCPCS: 36415; 72193; 80053; 81003; 82947; 83605; 85025; 87040; 87070; 87077; 87147; 87186; 87205; 87635; 96361; 96374; 96375; 99284; 99285; J2543; J3370; Q9967

== ENCOUNTER 2023-06-10 15:00 | Outpatient (AMB) | payer OTHER, SELFPAY ==
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
[2023-06-10 15:25] VITALS: BP 126/60; PULSE 97; RESP 18; O2SAT 98; BMI 35.5
== END 2023-06-10 15:45 | disposition home or self-care (01) ==
PROVIDERS: PCP Internal Medicine; Visit Provider Registered Nurse Emergency
DX: M79.18 Myalgia, other site (principal); M51.36 Other intervertebral disc degeneration, lumbar region; M47.816 Spondylosis without myelopathy or radiculopathy, lumbar region
CPT/HCPCS: 99203

== ENCOUNTER 2023-06-10 15:00 | Outpatient (REF) | payer OTHER, SELFPAY ==
--- NOTE | ~2023-06-10 | XR_ITS ---
EXAMINATION: XR LUMBOSACRAL SPINE CLINICAL INFORMATION: Intervertebral disc degeneration. COMPARISON: CT pelvis 02/02/2023 and lumbar spine radiographs 12/26/2020. TECHNIQUE: Three views of the lumbosacral spine. FINDINGS: Again seen is minimal grade 1 retrolisthesis of L3 upon L4. Vertebral body heights are maintained. Disc spaces are maintained. Some mild spondylitic endplate changes are seen with superior anterior endplate osteophytes at most levels. Degenerative changes are present at the L4-L5 and L5-S1 facet joints. No bony destructive lesions or fractures are seen. XR/XR lumbar spine 2-3V IMPRESSION: Mild degenerative changes as described above.
== END 2023-06-10 15:01 | disposition home or self-care (01) ==
LOC: HO.XRAY 15:00
PROVIDERS: PCP Internal Medicine; Visit Provider Registered Nurse Emergency
DX: M51.36 Other intervertebral disc degeneration, lumbar region (principal); M47.816 Spondylosis without myelopathy or radiculopathy, lumbar region; M79.18 Myalgia, other site
CPT/HCPCS: 72100; 99202

== ENCOUNTER 2023-06-24 07:52 | Outpatient (REF) | payer OTHER, SELFPAY ==
[2023-06-30 15:13] LABS: Testosterone, Free 36.2 pg/mL (35.0-155.0); Testosterone, Total 253 ng/dL (250-1100)
== END 2023-06-24 07:53 | disposition home or self-care (01) ==
LOC: HO.LAB 07:52
PROVIDERS: PCP Internal Medicine; Visit Provider Urology
DX: E11.69 Type 2 diabetes mellitus with other specified complication (principal); N52.1 Erectile dysfunction due to diseases classified elsewhere
CPT/HCPCS: 36415; 84402; 84403

== ENCOUNTER 2023-07-02 11:00 | Outpatient (AMB) | payer OTHER, SELFPAY ==
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
== END 2023-07-02 11:41 | disposition home or self-care (01) ==
LOC: HO.HUSH 11:00
PROVIDERS: PCP Internal Medicine; Visit Provider Urology
DX: E29.1 Testicular hypofunction (principal); E11.65 Type 2 diabetes mellitus with hyperglycemia; Z79.4 Long term (current) use of insulin
CPT/HCPCS: 99214

== ENCOUNTER → 2023-07-02 11:00 | Outpatient (BNVA) | payer OTHER, SELFPAY | PROVIDERS: PCP Internal Medicine; Visit Provider Urology | DX: E11.65 Type 2 diabetes mellitus with hyperglycemia (principal); E29.1 Testicular hypofunction; Z79.4 Long term (current) use of insulin | CPT/HCPCS: 99212 ==

== ENCOUNTER 2023-09-09 15:58 | Outpatient (AMB) | payer OTHER, SELFPAY ==
[2023-09-09 16:01] VITALS: BP 124/80; PULSE 103; O2SAT 95; BMI 37.1
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
== END 2023-09-09 16:37 | disposition home or self-care (01) ==
PROVIDERS: PCP Internal Medicine; Visit Provider Internal Medicine
DX: E11.65 Type 2 diabetes mellitus with hyperglycemia (principal); Z79.4 Long term (current) use of insulin; I10 Essential (primary) hypertension; E78.00 Pure hypercholesterolemia, unspecified; M51.36 Other intervertebral disc degeneration, lumbar region; E29.1 Testicular hypofunction
CPT/HCPCS: 83036; 99214

== ENCOUNTER 2024-01-03 11:04 | Outpatient (REF) | payer OTHER, SELFPAY ==
[2024-01-03 11:59] LABS: Hematocrit 39.5 % (42.0-52.0); Hemoglobin 13.2 g/dl (14.0-18.0); Mean Corpuscular HGB Conc 33.4 g/dl (31.0-36.0); Mean Corpuscular Hemoglobin 27.6 pg (27.0-33.0); Mean Corpuscular Volume 82.6 fL (80.0-98.0); Mean Platelet Volume 10.3 fL (9.4-12.4); Platelet Count 225 X10*3/uL (160-400); Red Blood Count 4.78 X10*6/uL (4.60-5.80); Red Cell Distribution Width 13.6 % (11.0-16.0)
[2024-01-08 13:58] LABS: Testosterone, Total 165 ng/dL (250-1100)
== END 2024-01-03 11:05 | disposition home or self-care (01) ==
LOC: HO.LAB 11:04
PROVIDERS: PCP Internal Medicine; Visit Provider Urology
DX: E29.1 Testicular hypofunction (principal); N40.1 Benign prostatic hyperplasia with lower urinary tract symptoms
CPT/HCPCS: 36415; 84153; 84403; 85027

== ENCOUNTER 2024-01-21 14:40 | Outpatient (AMB) | payer OTHER, SELFPAY ==
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
== END 2024-01-21 15:25 | disposition home or self-care (01) ==
LOC: HO.HUSH 14:40
PROVIDERS: PCP Internal Medicine; Visit Provider Urology
DX: E29.1 Testicular hypofunction (principal)
CPT/HCPCS: 99214

== ENCOUNTER → 2024-01-21 14:40 | Outpatient (BNVA) | payer OTHER, SELFPAY | PROVIDERS: PCP Internal Medicine; Visit Provider Urology ==

== ENCOUNTER 2024-03-02 14:25 | Outpatient (AMB) | payer OTHER, SELFPAY ==
[2024-03-02 14:26] VITALS: BP 138/86; PULSE 101; O2SAT 95; BMI 37.0
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
== END 2024-03-02 15:17 | disposition home or self-care (01) ==
PROVIDERS: PCP Internal Medicine; Visit Provider Internal Medicine
DX: E11.65 Type 2 diabetes mellitus with hyperglycemia (principal); Z79.4 Long term (current) use of insulin; E29.1 Testicular hypofunction; I10 Essential (primary) hypertension; E78.00 Pure hypercholesterolemia, unspecified
CPT/HCPCS: 83036; 99214

== ENCOUNTER 2024-07-13 16:01 | Outpatient (AMB) | payer OTHER, SELFPAY ==
[2024-07-13 16:04] VITALS: BP 140/74; PULSE 91; O2SAT 95; BMI 35.7
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
== END 2024-07-13 17:29 | disposition home or self-care (01) ==
PROVIDERS: PCP Internal Medicine; Visit Provider Internal Medicine
DX: E11.65 Type 2 diabetes mellitus with hyperglycemia (principal); Z79.4 Long term (current) use of insulin; I10 Essential (primary) hypertension; E78.00 Pure hypercholesterolemia, unspecified
CPT/HCPCS: 83036; 99214

== ENCOUNTER 2024-07-24 07:54 | Outpatient (REF) | payer OTHER, SELFPAY ==
[2024-07-24 09:05] LABS: Hematocrit 42.5 % (42.0-52.0); Hemoglobin 14.6 g/dl (14.0-18.0); Mean Corpuscular HGB Conc 34.4 g/dl (31.0-36.0); Mean Corpuscular Hemoglobin 28.2 pg (27.0-33.0); Mean Platelet Volume 10.7 fL (9.4-12.4); Platelet Count 242 X10*3/uL (160-400); Red Blood Count 5.18 X10*6/uL (4.60-5.80); Red Cell Distribution Width 12.8 % (11.0-16.0); White Blood Count 7.6 X10*3/uL (4.8-10.8)
[2024-07-24 09:37] LABS: Hemoglobin A1c % > 14.0 % (<6.0)
[2024-07-24 10:16] LABS: Alanine Aminotransferase 23 U/L (0-40); Alkaline Phosphatase 118 U/L (39-117); Anion Gap 12 (12-20); Aspartate Amino Transferase 16 U/L (5-37); Bilirubin Total 0.7 mg/dL (0.0-1.0); Blood Urea Nitrogen 25 mg/dL (9-16); Calcium 9.6 mg/dL (8.4-10.2); Carbon Dioxide 29 mmol/L (22-29); Chloride 107 mmol/L (96-108); Cholesterol 204 mg/dL (<200); Estimated Glomerular Filt Rate 56; Glucose Random 295 mg/dL (60-115); HDL Cholesterol 45 mg/dL (>40); LDL Cholesterol Calculated 118 mg/dL (<100); Potassium 3.8 mmol/L (3.3-5.1); Sodium 144 mmol/L (135-145); Triglycerides 205 mg/dL (<150)
[2024-07-24 12:26] LABS: Creatinine Urine 466.39 mg/dL; Microalbum/Creatinine Ratio Ur 268.4 ug/mg cr (<30)
[2024-07-24 13:31] LABS: Folate 10.1 ng/mL (> or = 4.0); Free T4 (Free Thyroxine) 1.02 ng/dL (0.71-1.85); Prostate Specific Antigen 0.23 ng/mL (<0.05-4.0); Thyroid Stimulating Hormone 2.53 uIU/mL (0.32-4.0); Vitamin B12 348 pg/mL (200-900)
== END 2024-07-24 07:55 | disposition home or self-care (01) ==
LOC: HO.LAB 07:54
PROVIDERS: Absent Provider Urology; PCP Internal Medicine; Visit Provider Internal Medicine
DX: E29.1 Testicular hypofunction (principal); Z79.4 Long term (current) use of insulin; E11.65 Type 2 diabetes mellitus with hyperglycemia
CPT/HCPCS: 36415; 80053; 80061; 82043; 82570; 82607; 82746; 83036; 84153; 84439; 84443; 85027

== ENCOUNTER 2024-08-02 16:08 | Outpatient (AMB) | payer OTHER, SELFPAY ==
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
[2024-08-02 16:10] VITALS: BP 132/88; PULSE 104; BMI 36.3
[2024-08-02 16:24] LABS: Glucose, Whole Blood 246 mg/dL (60-115)
== END 2024-08-02 17:05 | disposition home or self-care (01) ==
PROVIDERS: PCP Internal Medicine; Visit Provider Nurse Practitioner Adult Health
DX: E11.65 Type 2 diabetes mellitus with hyperglycemia (principal)
CPT/HCPCS: 99205; G2211

== ENCOUNTER → 2024-08-02 16:08 | Outpatient (BNVA) | payer OTHER, SELFPAY | PROVIDERS: PCP Internal Medicine; Visit Provider Nurse Practitioner Adult Health | DX: E11.65 Type 2 diabetes mellitus with hyperglycemia (principal); Z79.4 Long term (current) use of insulin | CPT/HCPCS: 82947; 99202 ==

== ENCOUNTER 2024-08-04 11:37 | Outpatient (AMB) | payer OTHER, SELFPAY ==
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
== END 2024-08-04 12:18 | disposition home or self-care (01) ==
LOC: HO.HUSH 11:37
PROVIDERS: PCP Internal Medicine; Visit Provider Urology
DX: N47.1 Phimosis (principal); E29.1 Testicular hypofunction; E11.69 Type 2 diabetes mellitus with other specified complication; N52.1 Erectile dysfunction due to diseases classified elsewhere
CPT/HCPCS: 99214

== ENCOUNTER → 2024-08-04 11:37 | Outpatient (BNVA) | payer OTHER, SELFPAY | PROVIDERS: PCP Internal Medicine; Visit Provider Urology ==

== ENCOUNTER 2024-08-29 16:01 | Outpatient (AMB) | payer OTHER, SELFPAY ==
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
[2024-08-29 16:03] VITALS: BP 120/80; PULSE 86; BMI 36.6
[2024-08-29 16:12] LABS: Glucose, Whole Blood 104 mg/dL (60-115)
== END 2024-08-29 16:31 | disposition home or self-care (01) ==
PROVIDERS: PCP Internal Medicine; Visit Provider Nurse Practitioner Adult Health
DX: E11.65 Type 2 diabetes mellitus with hyperglycemia (principal)
CPT/HCPCS: 99214; G2211

== ENCOUNTER → 2024-08-29 16:01 | Outpatient (BNVA) | payer OTHER, SELFPAY | PROVIDERS: PCP Internal Medicine; Visit Provider Nurse Practitioner Adult Health | DX: E11.65 Type 2 diabetes mellitus with hyperglycemia (principal); E11.21 Type 2 diabetes mellitus with diabetic nephropathy; E11.40 Type 2 diabetes mellitus with diabetic neuropathy, unspecified; N52.1 Erectile dysfunction due to diseases classified elsewhere | CPT/HCPCS: 82947; 99212 ==

== ENCOUNTER 2024-10-09 15:26 | Outpatient (AMB) | payer OTHER, SELFPAY ==
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
[2024-10-09 15:34] VITALS: BP 132/80; PULSE 93; O2SAT 94; BMI 37.0
== END 2024-10-09 16:10 | disposition home or self-care (01) ==
PROVIDERS: PCP Internal Medicine
DX: E11.21 Type 2 diabetes mellitus with diabetic nephropathy (principal); E11.65 Type 2 diabetes mellitus with hyperglycemia; E78.00 Pure hypercholesterolemia, unspecified; I10 Essential (primary) hypertension; N40.1 Benign prostatic hyperplasia with lower urinary tract symptoms; J45.909 Unspecified asthma, uncomplicated; M25.521 Pain in right elbow; G47.10 Hypersomnia, unspecified

== ENCOUNTER → 2024-10-09 15:26 | Outpatient (BNVA) | payer OTHER, SELFPAY | PROVIDERS: PCP Internal Medicine | DX: E11.21 Type 2 diabetes mellitus with diabetic nephropathy (principal); E11.65 Type 2 diabetes mellitus with hyperglycemia; E78.00 Pure hypercholesterolemia, unspecified; I10 Essential (primary) hypertension; N40.1 Benign prostatic hyperplasia with lower urinary tract symptoms; J45.909 Unspecified asthma, uncomplicated; M25.521 Pain in right elbow; G47.10 Hypersomnia, unspecified | CPT/HCPCS: 83036; 99212 ==

== ENCOUNTER 2024-12-05 15:58 | Outpatient (AMB) | payer OTHER, SELFPAY ==
[2024-12-05 16:01] VITALS: BP 118/78; PULSE 106; BMI 37.3
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
[2024-12-05 16:11] LABS: Glucose, Whole Blood 244 mg/dL (60-115)
== END 2024-12-05 16:34 | disposition home or self-care (01) ==
PROVIDERS: PCP Internal Medicine; Visit Provider Nurse Practitioner Adult Health
DX: E11.65 Type 2 diabetes mellitus with hyperglycemia (principal); Z79.4 Long term (current) use of insulin
CPT/HCPCS: 99214; G2211

== ENCOUNTER → 2024-12-05 15:58 | Outpatient (BNVA) | payer OTHER, SELFPAY | PROVIDERS: PCP Internal Medicine; Visit Provider Nurse Practitioner Adult Health | DX: E11.65 Type 2 diabetes mellitus with hyperglycemia (principal); E03.9 Hypothyroidism, unspecified; Z79.4 Long term (current) use of insulin; Z79.899 Other long term (current) drug therapy | CPT/HCPCS: 82947; 99212 ==

== ENCOUNTER → 2024-12-26 14:56 | Outpatient (REF) | payer OTHER, SELFPAY | LOC: HO.SL 14:56 | PROVIDERS: PCP Internal Medicine | DX: G47.10 Hypersomnia, unspecified (principal) | CPT/HCPCS: 95806 ==

== ENCOUNTER → 2024-12-26 15:07 | Outpatient (BNV) | payer OTHER, SELFPAY | PROVIDERS: PCP Internal Medicine; Visit Provider Internal Medicine | DX: G47.33 Obstructive sleep apnea (adult) (pediatric) (principal) | CPT/HCPCS: 95806 ==

== ENCOUNTER 2025-03-08 07:44 | Outpatient (REF) | payer OTHER, SELFPAY ==
[2025-03-08 09:15] LABS: Hematocrit 42.6 % (42.0-52.0); Hemoglobin 14.4 g/dl (14.0-18.0); Mean Corpuscular HGB Conc 33.8 g/dl (31.0-36.0); Mean Corpuscular Hemoglobin 27.7 pg (27.0-33.0); Mean Corpuscular Volume 82.1 fL (80.0-98.0); Mean Platelet Volume 10.7 fL (9.4-12.4); Platelet Count 244 X10*3/uL (160-400); Red Blood Count 5.19 X10*6/uL (4.60-5.80); Red Cell Distribution Width 13.2 % (11.0-16.0); White Blood Count 7.6 X10*3/uL (4.8-10.8)
[2025-03-08 10:09] LABS: Prostate Specific Antigen 0.24 ng/mL (<0.05-4.0)
[2025-03-08 10:52] LABS: Creatinine Urine 127.35 mg/dL
[2025-03-12 12:43] LABS: Testosterone, Total 220 ng/dL (250-1100)
== END 2025-03-08 07:45 | disposition home or self-care (01) ==
LOC: HO.LAB 07:44
PROVIDERS: Absent Provider Urology; PCP Internal Medicine; Referring Provider Nurse Practitioner Adult Health; Visit Provider Internal Medicine
DX: E29.1 Testicular hypofunction (principal); E11.65 Type 2 diabetes mellitus with hyperglycemia; Z79.4 Long term (current) use of insulin
CPT/HCPCS: 36415; 82570; 84153; 84403; 85027

== ENCOUNTER 2025-03-14 15:27 | Outpatient (AMB) | payer OTHER, SELFPAY ==
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
== END 2025-03-14 16:03 | disposition home or self-care (01) ==
LOC: HO.HUSH 15:27
PROVIDERS: PCP Internal Medicine; Visit Provider Urology
DX: E11.69 Type 2 diabetes mellitus with other specified complication (principal); N52.1 Erectile dysfunction due to diseases classified elsewhere; N40.1 Benign prostatic hyperplasia with lower urinary tract symptoms; N47.1 Phimosis
CPT/HCPCS: 99214

== ENCOUNTER → 2025-03-14 15:27 | Outpatient (BNVA) | payer OTHER, SELFPAY | PROVIDERS: PCP Internal Medicine; Visit Provider Urology | DX: E11.69 Type 2 diabetes mellitus with other specified complication (principal); N52.1 Erectile dysfunction due to diseases classified elsewhere; N40.1 Benign prostatic hyperplasia with lower urinary tract symptoms; N47.1 Phimosis | CPT/HCPCS: 99212 ==

== ENCOUNTER 2025-08-30 08:32 | Outpatient (REF) | payer OTHER, SELFPAY ==
[2025-08-30 09:07] LABS: Hematocrit 42.1 % (42.0-52.0); Hemoglobin 14.6 g/dl (14.0-18.0); Mean Corpuscular HGB Conc 34.7 g/dl (31.0-36.0); Mean Corpuscular Hemoglobin 28.3 pg (27.0-33.0); Mean Corpuscular Volume 81.7 fL (80.0-98.0); NRBC Abs Auto 0.000 X10*3/uL (0.0-0.012); NRBC Pct Auto 0.0 /100WBC (0.0-0.2); Platelet Count 290 X10*3/uL (160-400); Red Blood Count 5.15 X10*6/uL (4.60-5.80); White Blood Count 7.1 X10*3/uL (4.8-10.8)
[2025-08-30 09:45] LABS: Prostate Specific Antigen 0.21 ng/mL (<0.05-4.0)
== END 2025-08-30 08:33 | disposition home or self-care (01) ==
LOC: HO.LAB 08:32
PROVIDERS: PCP Internal Medicine; Visit Provider Urology
DX: E29.1 Testicular hypofunction (principal)
CPT/HCPCS: 36415; 84153; 84403; 85027

== ENCOUNTER 2025-09-12 15:46 | Outpatient (AMB) | payer OTHER, SELFPAY ==
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
== END 2025-09-12 16:24 | disposition home or self-care (01) ==
LOC: HO.HUSH 15:47
PROVIDERS: PCP Internal Medicine; Visit Provider Urology
DX: N40.1 Benign prostatic hyperplasia with lower urinary tract symptoms (principal); E11.69 Type 2 diabetes mellitus with other specified complication; N52.1 Erectile dysfunction due to diseases classified elsewhere; N47.1 Phimosis; E29.1 Testicular hypofunction
CPT/HCPCS: 99214

== ENCOUNTER → 2025-09-12 15:46 | Outpatient (BNVA) | payer OTHER, SELFPAY | PROVIDERS: PCP Internal Medicine; Visit Provider Urology | DX: N40.1 Benign prostatic hyperplasia with lower urinary tract symptoms (principal); R35.1 Nocturia; E11.69 Type 2 diabetes mellitus with other specified complication; N52.1 Erectile dysfunction due to diseases classified elsewhere; N47.1 Phimosis; E29.1 Testicular hypofunction | CPT/HCPCS: 99212 ==

== ENCOUNTER 2025-10-18 14:57 | Outpatient (AMB) | payer OTHER, SELFPAY ==
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
[2025-10-18 15:10] VITALS: BP 140/90; PULSE 95; TEMP 36.7; O2SAT 97; BMI 36.5
== END 2025-10-18 16:20 | disposition home or self-care (01) ==
LOC: HO.HMCH 14:58
PROVIDERS: PCP Internal Medicine
DX: Z13.9 Encounter for screening, unspecified (principal)

== ENCOUNTER → 2025-10-18 14:57 | Outpatient (BNVA) | payer OTHER, SELFPAY | PROVIDERS: PCP Internal Medicine | DX: Z00.00 Encounter for general adult medical examination without abnormal findings (principal); I10 Essential (primary) hypertension; E78.00 Pure hypercholesterolemia, unspecified; E11.65 Type 2 diabetes mellitus with hyperglycemia; E11.21 Type 2 diabetes mellitus with diabetic nephropathy; E11.69 Type 2 diabetes mellitus with other specified complication; N40.1 Benign prostatic hyperplasia with lower urinary tract symptoms; N52.1 Erectile dysfunction due to diseases classified elsewhere; E29.1 Testicular hypofunction; E03.9 Hypothyroidism, unspecified; G47.33 Obstructive sleep apnea (adult) (pediatric) | CPT/HCPCS: 81003; 83036; 96127; 99396 ==